=== PATIENT | male | born 1975 | race Caucasian/White ===

== ENCOUNTER 2016-09-13 10:57 | Day surgery (SDC) | payer OTHER ==
[2016-09-11 09:48] VITALS: BMI 40.1
[~2016-09-13 10:57] MED LIST: ALBUTEROL NEB (CONC) 2.5 MG/0.5 ML INHALATION ONE; LACTATED RINGERS 1,000 ML IV ONE; LACTATED RINGERS 1,000 ML IV SCH; LIDOCAINE 2% (PF) 20 MG/ML 10ML INHALATION ONE; Pre Op ABX Message 1 EACH MISC MISCELLANE ONE
[2016-09-13] MEDS ORDERED: LIDOCAINE 1% 20 ML VIAL (10MG/ML) FOR IV START SQ ONE (11:47)
[2016-09-13 11:51] VITALS: TEMP 98.3
[2016-09-13] MEDS ORDERED: MIDAZOLAM 2 MG/2 ML VIAL ONE (12:46)
[2016-09-13] MEDS ORDERED: PROPOFOL 10 MG/ML 20 ML VIAL IV ONE (12:46)
[2016-09-13] MEDS ORDERED: fentaNYL (PF) 50 MCG/ML 2 ML AMP ONE (12:46)
[2016-09-13] MEDS ORDERED: LIDOCAINE 1% INJ 10MG/ML (20 ML MDV) ONE (12:46)
[2016-09-13] MEDS ORDERED: KETAMINE 10 MG/ML 20 ML VIAL ONE (12:46)
[2016-09-13 13:41] VITALS: RESP 18
[2016-09-13 14:01] VITALS: BP 130/62; PULSE 81
--- NOTE | 2016-09-13 21:46 | PCN ---
PROCEDURE: Bronchoscopy. PREOPERATIVE DIAGNOSIS: Hemoptysis and a questionable left lung polypoid lesion. POSTOPERATIVE DIAGNOSIS: Endobronchial mass/lesion occluding the orifice of the left upper lobe bronchus. This procedure was done under conscious sedation with anesthetic agents being administered by Anesthesia at the bedside. After achieving adequate sedation, flexible bronchoscope was inserted in the right nostril, was advanced into the upper airway. There was a significant amount of adipose tissue circumferentially in the upper airway involving the pharyngeal and laryngeal wall typical of sleep apnea. There was also evidence of dynamic obstruction. Flexible bronchoscope was advanced and the upper airway structures were visualized. The visualized airways included the posterior oropharynx, larynx, epiglottis, arytenoids, valleculae and the vocal cords. All of these upper airway structures were within normal limits and the vocal cords were symmetrical in the midline with full mobility. A total of 2 mL of 1% lidocaine was applied to the vocal cords and then the bronchoscope was advanced to the upper trachea and examination of the tracheobronchial tree was done. Trachea was within normal. Right mainstem bronchus, right upper lobe bronchus, right middle lobe bronchus and right lower lobe bronchus were all within normal limits. Then the bronchoscope was moved to the left side and the left mainstem bronchus was within normal. At the distal left mainstem bronchus and exactly at the site of the secondary faith bifurcating between the left upper lobe and left lower lobe bronchus, there was an endobronchial growth/lesion/mass probably 1.5 x 2 cm in size and this lesion is located exactly at the orifice of the left upper lobe bronchus, causing near complete occlusion of the left upper lobe bronchus. I was able to pass the bronchoscope past this lesion and I was able to visualize the left upper lobe airways. However, the lesion itself is at the origin of the left upper lobe bronchus and is causing significant anatomic obstruction probably in the order of 80%. The surface of the lesion is very small smooth and shiny and vascular. I was able to insert a 19-gauge histology and cytology needle into this lesion and samples were examined by Pathology at the bedside. There were significant macrophages, yet there was no evidence of any malignant cells based on preliminary examination. I also performed endobronchial biopsies. The field got contaminated with blood caused by these biopsies. The bloody secretions were all suctioned out. The airway was further irrigated with saline and there was no active source of bleeding identified. At the end of the procedure, therapeutic airway suctioning was done and the bronchoscope was removed and the patient was transferred to recovery in stable condition. PLAN: This patient has an abnormal growth/lesion/mass in the left upper lobe bronchus, which is very smooth and shiny and vascular. Rule out primary lung cancer. Rule out carcinoid. Rule out endobronchial fungal infections. Rule out benign polypoid growth. My plan is to send this patient to [facility] to be seen by the interventional pulmonology program for rigid bronchoscopy and excision. Will continue to follow.
== END 2016-09-13 14:35 | disposition home or self-care (01) ==
LOC: ORWHC2ENDO 10:57
PROVIDERS: ATTEND Internal Medicine Critical Care Medicine
DX: G47.33 Obstructive sleep apnea (adult) (pediatric) (principal); Z99.89 Dependence on other enabling machines and devices; I10 Essential (primary) hypertension; E78.5 Hyperlipidemia, unspecified; Z79.82 Long term (current) use of aspirin; Z79.899 Other long term (current) drug therapy
CPT/HCPCS: 88305; 88173; 88342; 88341; 31629; J2250; J2001; J3010; J2704; 31625; 31633; 99153

== ENCOUNTER 2019-02-01 17:22 | Inpatient (IN) | payer BC, OTHER ==
[2019-02-01] MEDS ORDERED: KETOROLAC 30 MG/ML 1 ML VIAL IVP STA (18:17)
[2019-02-01] MEDS ORDERED: SODIUM CHLORIDE 0.9% 1,000 ML IV STA (18:17)
[2019-02-01] MEDS ORDERED: ONDANSETRON 4 MG/2 ML VIAL IVP STA (18:17)
--- NOTE | 2019-02-01 18:29 | ED ---
Abdominal Pain HPI - General Chief Complaint: Abdominal Pain Stated Complaint: Stomach pain Time Seen by Provider: 02/01/19 18:06 Source: patient, RN notes reviewed Mode of arrival: ambulatory Limitations: no limitations - History of Present Illness Initial Comments: This is a 43-year-old male presents emergency Department chief left-sided abdominal pain. Patient states the pain started today. Patient does admit that started vomiting with continuous nausea, mild diarrhea. Denies any melena hematochezia. No fevers or chills no dysuria no hematuria. Patient had a colonoscopy in the past which was negative for acute findings, no history kidney stones no prior abdominal surgeries that chest pain or shortness of breath. - Related Data Home Medications Medication Instructions Recorded Confirmed Aspirin [Adult Low Dose Aspirin EC] 81 mg PO DAILY 09/11/16 02/01/19 Fexofenadine HCl [Kia Allergy] 60 mg PO DAILY 09/11/16 02/01/19 Gemfibrozil [Lopid] 600 mg PO AC-BID 09/11/16 02/01/19 Lisinopril-Hctz 20-12.5 mg 1 tab PO DAILY 09/11/16 02/01/19 [Zestoretic 20-12.5] Esomeprazole Magnesium [NexIUM] 40 mg PO DAILY 02/01/19 02/01/19 Multivitamins, Thera [Multivitamin 1 tab PO DAILY 02/01/19 02/01/19 (formulary)] metFORMIN HCL [Glucophage] 1,000 mg PO BID 02/01/19 02/01/19 Allergies Allergy/AdvReac Type Severity Reaction Status Date / Time Milk Containing Products AdvReac sinus, Verified 02/01/19 19:01 [Dairy] itchy eyes Review of Systems ROS Statement: Those systems with pertinent positive or pertinent negative responses have been documented in the HPI. ROS Other: All systems not noted in ROS Statement are negative. Past Medical History Past Medical History: GERD/Reflux, Hyperlipidemia, Hypertension, Sleep Apnea/CPAP/BIPAP Additional Past Medical History / Comment(s): mass left lung, allergies History of Any Multi-Drug Resistant Organisms: None Reported Past Surgical History: Orthopedic Surgery Additional Past Surgical History / Comment(s): arthroscopy rt knee Past Anesthesia/Blood Transfusion Reactions: No Reported Reaction Smoking Status: Former smoker - Past Family History Mother Family Medical History: No Reported History General Exam Limitations: no limitations General appearance: alert, in no apparent distress Head exam: Present: atraumatic, normocephalic, normal inspection Eye exam: Present: normal appearance, PERRL, EOMI. Absent: scleral icterus, conjunctival injection, periorbital swelling Neck exam: Present: normal inspection. Absent: tenderness, meningismus, lymphadenopathy Respiratory exam: Present: normal lung sounds bilaterally. Absent: respiratory distress, wheezes, rales, rhonchi, stridor Cardiovascular Exam: Present: regular rate, normal rhythm, normal heart sounds. Absent: systolic murmur, diastolic murmur, rubs, gallop, clicks GI/Abdominal exam: Present: soft, tenderness (Mild diffuse with moderate left- sided tenderness), normal bowel sounds. Absent: distended, guarding, rebound, rigid Back exam: Absent: CVA tenderness (R), CVA tenderness (L) Skin exam: Present: warm, dry, intact, normal color. Absent: rash Course Vital Signs 02/01/19 18:02 Temperature 98.4 F Pulse Rate 105 H Respiratory 16 Rate Blood Pressure 147/89 O2 Sat by Pulse 98 Oximetry Medical Decision Making - Medical Decision Making 43-year-old male presented from for abdominal pain. Patient's found to have acute pancreatitis, hyperglycemia related to his diabetes. Patient will be admitted for IV fluid hydration, pain control and insulin. - Lab Data Result diagrams: 02/01/19 18:30 02/01/19 18:30 Lab Results 02/01/19 02/01/19 02/01/19 Range/Units 18:30 18:30 18:30 WBC 9.3 (3.8-10.6) k/uL RBC 4.09 L (4.30-5.90) m/uL Hgb 13.6 (13.0-17.5) gm/dL Hct 38.9 L (39.0-53.0) % MCV 95.0 (80.0-100.0) fL MCH 33.2 (25.0-35.0) pg MCHC 34.9 (31.0-37.0) g/dL RDW 12.9 (11.5-15.5) % Plt Count 191 (150-450) k/uL Neutrophils % 83 % Lymphocytes % 10 % Monocytes % 4 % Eosinophils % 2 % Basophils % 0 % Neutrophils # 7.8 H (1.3-7.7) k/uL Lymphocytes # 0.9 L (1.0-4.8) k/uL Monocytes # 0.4 (0-1.0) k/uL Eosinophils # 0.2 (0-0.7) k/uL Basophils # 0.0 (0-0.2) k/uL Sodium 134 L (137-145) mmol/L Potassium 4.3 (3.5-5.1) mmol/L Chloride 93 L (98-107) mmol/L Carbon Dioxide 26 (22-30) mmol/L Anion Gap 15 mmol/L BUN 24 H (9-20) mg/dL Creatinine 1.13 (0.66-1.25) mg/dL Est GFR (CKD-EPI)AfAm >90 (>60 ml/min/1.73 sqM) Est GFR (CKD-EPI)NonAf 80 (>60 ml/min/1.73 sqM) Glucose 417 H (74-99) mg/dL Plasma Lactic Acid Ralf 3.2 H* (0.7-2.0) mmol/L Calcium 10.4 H (8.4-10.2) mg/dL Total Bilirubin 0.7 (0.2-1.3) mg/dL AST 40 (17-59) U/L ALT 63 (21-72) U/L Alkaline Phosphatase 111 (38-126) U/L Total Protein 7.6 (6.3-8.2) g/dL Albumin 4.7 (3.5-5.0) g/dL Lipase 6404 H (23-300) U/L Urine Color Urine Appearance (Clear) Urine pH (5.0-8.0) Ur Specific [place] (1.001-1.035) Urine Protein (Negative) Urine Glucose (UA) (Negative) Urine Ketones (Negative) Urine Blood (Negative) Urine Nitrite (Negative) Urine Bilirubin (Negative) Urine Urobilinogen (<2.0) mg/dL Ur Leukocyte Esterase (Negative) 02/01/19 Range/Units 18:45 WBC (3.8-10.6) k/uL RBC (4.30-5.90) m/uL Hgb (13.0-17.5) gm/dL Hct (39.0-53.0) % MCV (80.0-100.0) fL MCH (25.0-35.0) pg MCHC (31.0-37.0) g/dL RDW (11.5-15.5) % Plt Count (150-450) k/uL Neutrophils % % Lymphocytes % % Monocytes % % Eosinophils % % Basophils % % Neutrophils # (1.3-7.7) k/uL Lymphocytes # (1.0-4.8) k/uL Monocytes # (0-1.0) k/uL Eosinophils # (0-0.7) k/uL Basophils # (0-0.2) k/uL Sodium (137-145) mmol/L Potassium (3.5-5.1) mmol/L Chloride (98-107) mmol/L Carbon Dioxide (22-30) mmol/L Anion Gap mmol/L BUN (9-20) mg/dL Creatinine (0.66-1.25) mg/dL Est GFR (CKD-EPI)AfAm (>60 ml/min/1.73 sqM) Est GFR (CKD-EPI)NonAf (>60 ml/min/1.73 sqM) Glucose (74-99) mg/dL Plasma Lactic Acid Ralf (0.7-2.0) mmol/L Calcium (8.4-10.2) mg/dL Total Bilirubin (0.2-1.3) mg/dL AST (17-59) U/L ALT (21-72) U/L Alkaline Phosphatase (38-126) U/L Total Protein (6.3-8.2) g/dL Albumin (3.5-5.0) g/dL Lipase (23-300) U/L Urine Color Light Yellow Urine Appearance Clear (Clear) Urine pH 5.0 (5.0-8.0) Ur Specific [place] 1.031 (1.001-1.035) Urine Protein Trace H (Negative) Urine Glucose (UA) 4+ H (Negative) Urine Ketones Negative (Negative) Urine Blood Negative (Negative) Urine Nitrite Negative (Negative) Urine Bilirubin Negative (Negative) Urine Urobilinogen <2.0 (<2.0) mg/dL Ur Leukocyte Esterase Negative (Negative) Disposition Clinical Impression: Abdominal pain, Pancreatitis, Hyperglycemia Disposition: ADMITTED IP TO THIS HOSP Condition: Fair Referrals: Danette Huynh MD [Primary Care Provider] - 1-2 days
[2019-02-01 19:04] LABS: ALT 63 U/L (21-72); AST 40 U/L (17-59); African American GFR (CKD) >90 (>60 ml/min/1.73 sqM); Albumin 4.7 g/dL (3.5-5.0); Alkaline Phosphatase 111 U/L (38-126); Anion Gap 15 mmol/L; Blood Urea Nitrogen 24 mg/dL (9-20); Calcium 10.4 mg/dL (8.4-10.2); Carbon Dioxide 26 mmol/L (22-30); Chloride 93 mmol/L (98-107); Glucose 417 mg/dL (74-99); Potassium 4.3 mmol/L (3.5-5.1); Sodium 134 mmol/L (137-145); Total Bilirubin 0.7 mg/dL (0.2-1.3); Total Protein 7.6 g/dL (6.3-8.2)
[2019-02-01 19:11] LABS: Appearance,Urine Clear (Clear); Bilirubin,Urine Negative (Negative); Blood,Urine Negative (Negative); Color,Urine Light Yellow; Glucose,Urine (UA) 4+ (Negative); Ketones,Urine Negative (Negative); Leukocyte Esterase,Urine Negative (Negative); Nitrite,Urine Negative (Negative); Protein,Urine Trace (Negative); Specific Gravity,Urine 1.031 (1.001-1.035); Urobilinogen,Urine <2.0 mg/dL (<2.0)
[2019-02-01 19:13] LABS: Basophils % (A) 0 %; Eosinophils # (A) 0.2 k/uL (0-0.7); Eosinophils % (A) 2 %; HCT 38.9 % (39.0-53.0); HGB 13.6 gm/dL (13.0-17.5); Lymphocytes # (A) 0.9 k/uL (1.0-4.8); Lymphocytes % (A) 10 %; MCH 33.2 pg (25.0-35.0); MCHC 34.9 g/dL (31.0-37.0); Mean Platelet Volume 8.1; Monocytes # (A) 0.4 k/uL (0-1.0); Monocytes % (A) 4 %; Neutrophils # (A) 7.8 k/uL (1.3-7.7); Neutrophils % (A) 83 %; Platelet Count 191 k/uL (150-450); RBC 4.09 m/uL (4.30-5.90); RDW 12.9 % (11.5-15.5); WBC 9.3 k/uL (3.8-10.6)
[2019-02-01 19:23] LABS: Lipase 6404 U/L (23-300)
[2019-02-01] MEDS ORDERED: SODIUM CHLORIDE 0.9% 1,000 ML IV ONE (19:33)
[2019-02-01] MEDS ORDERED: HYDROmorphone 0.5 MG/0.5 ML SYRINGE IVP STA (19:53)
--- NOTE | 2019-02-01 20:20 | CT ---
EXAMINATION TYPE: CT abdomen pelvis w con DATE OF EXAM: 02/01/2019 COMPARISON: None HISTORY: Left sided pain on and off x [address] DLP: 2948.4 mGycm Automated exposure control for dose reduction was used. TECHNIQUE: Helical acquisition of images was performed from the lung bases through the pelvis. CONTRAST: Performed without Oral Contrast and with IV Contrast, patient injected with 100 mL of Isovu e 300. FINDINGS: LUNG BASES: No acute findings. LIVER/GB: The liver is diffusely low in attenuation, likely steatosis. There is hepatomegaly. The gal lbladder is contracted. No CT evidence of cholelithiasis. There is no intrahepatic or extrahepatic bi liary tree dilation. PANCREAS: The pancreatic tail is markedly abnormal, and this abnormality extends to the midline. Ther e is complete loss of the normal acinar parenchymal pattern with edematous swelling and peripancreati c edematous reticulation of the anterior pararenal space, extending both anteriorly and posteriorly t o the pancreatic tail, as well as superiorly and inferiorly. The inflammatory edematous change is twi ce the volume of the normal pancreatic tail. The CT attenuation of the pancreatic parenchyma is decreased in the left lateral tail of the pancreas , suggesting the possibility of pancreatic necrosis. Short interval follow-up MR or CT with arterial phase contrast can be used to assess for this possibility. The pancreatic duct is normal. SPLEEN: No significant abnormality is seen. ADRENALS: No significant abnormality is seen. KIDNEYS: No significant abnormality is seen. FREE AIR: No free air is visualized. No ascites. RETROPERITONEAL ADENOPATHY: None visualized REPRODUCTIVE ORGANS: No significant abnormality is seen URINARY BLADDER: No significant abnormality is seen. PELVIC ADENOPATHY: None visualized. OSSEOUS STRUCTURES: No significant abnormality is seen. BOWEL: No significant abnormality is seen. OTHER: No acute vascular findings. Specifically, the splenic vein is widely patent. IMPRESSION: MODERATE-MARKED PANCREATITIS DESCRIBED. SHORT INTERVAL FOLLOW-UP MR OR CT RECOMMENDED.
[2019-02-01] MEDS ORDERED: ONDANSETRON 4 MG/2 ML VIAL IVP PRN (20:28)
[2019-02-01] MEDS ORDERED: KETOROLAC 30 MG/ML 1 ML VIAL IVP PRN (20:28)
[2019-02-01] MEDS ORDERED: NALOXONE 0.4 MG/ML 1 ML VIAL IV PRN (20:28)
[2019-02-01] MEDS ORDERED: INSULIN ASPART (NovoLOG) 100 UNIT/ML VIAL SQ SCH (21:00)
[2019-02-01 21:03] LABS: Glucose,Whole Blood 385 mg/dL (75-99)
[2019-02-01] MEDS: SODIUM CHLORIDE 0.9% 1,000 ML IV SCH (22:01)
[2019-02-01] MEDS: HYDROmorphone 0.5 MG/0.5 ML SYRINGE IVP PRN (23:33)
[2019-02-02 00:39] LABS: Glucose,Whole Blood 277 mg/dL (75-99)
[2019-02-02] MEDS ORDERED: TEMAZEPAM 15 MG CAP PO PRN (01:03)
[2019-02-02] MEDS: PANTOPRAZOLE 40 MG/10 ML VIAL IVP SCH ×3 (03:34→20:35)
[2019-02-02] MEDS: MEROPENEM 2 GM in SODIUM CHLORIDE 0.9% 100 ML IVPB SCH ×3 (03:34→18:23)
[2019-02-02] MEDS: SODIUM CHLORIDE 0.9% 1,000 ML IV SCH ×2 (03:35→15:03)
[2019-02-02] MEDS: HYDROmorphone 0.5 MG/0.5 ML SYRINGE IVP PRN ×2 (03:39→08:06)
[2019-02-02 06:39] LABS: Glucose,Whole Blood 262 mg/dL (75-99)
[2019-02-02] MEDS: INSULIN ASPART (NovoLOG) 100 UNIT/ML VIAL SQ SCH ×4 (08:08→21:26)
[2019-02-02] MEDS: HEPARIN SODIUM,PORCINE 5,000 UNIT/ML 1 ML VIAL SQ SCH ×2 (08:11→20:37)
--- NOTE | 2019-02-02 08:16 | HP ---
HISTORY AND PHYSICAL DOS: 02/01/2019 CHIEF COMPLAINT: Abdominal pain. HISTORY OF PRESENT ILLNESS: This 43-year-old gentleman with a past medical history of multiple medical problems including diabetes, GERD, hypertension, hyperlipidemia, sleep apnea, history of left lung mass removed in [facility] in 2017, history of anxiety, depression, being followed by Dr. Huynh in the outpatient setting also had history of alcohol intake also like 3 to 4 days per week according to him. The patient is taking 3 to 4 drinks. The patient is complaining of severe abdominal pain for the last several days. It was aggravated today and the pain was mostly in the left upper quadrant with some associated nausea. The patient was followed by Dr. Huynh in the outpatient setting. The patient also had diabetes mellitus rather not compliant recently according to him. The patient also had some vomiting and continuous nausea and the patient came to [facility] and lipase was markedly elevated to more than 6000 indicating acute pancreatitis. CAT scan confirmed moderate marked pancreatitis also. The patient admitted for further evaluation and treatment at this time. Gastroenterology and surgical evaluation has been sought. There is no history of fever, rigors. No history of headache, loss of consciousness or seizures at this time. PAST MEDICAL HISTORY: History of diabetes mellitus, GERD, hypertension, hyperlipidemia, sleep apnea, history of left lung mass removal, anxiety, depression. MEDICATIONS: The home medications are: 1. Metformin 1000 mg p.o. b.i.d. 2. Multivitamins one p.o. daily. 3. Lisinopril, Zestoretic one tablet p.o. daily. 4. Lopid 600 mg p.o. b.i.d. 5. Kia 60 mg p.o. daily. 6. Nexium 40 mg p.o. daily. 7. Ecotrin 81 mg daily. ALLERGIES: MILK CONTAINING PRODUCTS. FAMILY HISTORY: History of hypertension and hyperlipidemia. SOCIAL HISTORY: History of alcohol as mentioned earlier. Previous history of smoking. REVIEW OF SYSTEMS: ENT: No diminished hearing or diminished vision. CARDIOVASCULAR SYSTEM: No angina. RESPIRATORY SYSTEM: As mentioned earlier. GI: As mentioned earlier. : No dysuria. NERVOUS SYSTEM: No numbness or weakness. ALLERGY/IMMUNOLOGY: No asthma or hayfever. MUSCULOSKELETAL: As mentioned early. HEMATOLOGY/ONCOLOGY: No history of anemia. ENDOCRINE: As mentioned earlier, diabetes mellitus. No hypothyroidism. CONSTITUTIONAL: As mentioned earlier. DERMATOLOGY: Negative. RHEUMATOLOGY: Negative. PSYCHIATRY: As mentioned earlier. PHYSICAL EXAMINATION: The patient is alert and oriented x3. Pulse 102, blood pressure 121/83, respirations 17, temperature 99.2, pulse ox 96% on room air. HEENT: Conjunctivae normal. Oral mucosa moist. NECK: No jugular venous distention. No carotid bruit. No lymph node enlargement. CARDIOVASCULAR: S1, S2 muffled. No S3, no S4. RESPIRATORY: Breath sounds diminished at the bases. No rhonchi, no crackles. ABDOMEN: Soft, obese. Mild diffuse discomfort. Mild diffuse distention. No guarding. No rigidity. No mass palpable. Bowel sounds diminished. No ascites. LEGS: No edema, no swelling. NERVOUS SYSTEM: Higher functions as mentioned. Moves all 4 limbs. No focal motor deficits. LYMPHATICS: No lymphadenopathy of the neck, axillae or groin. SKIN: No ulcer, rash or bleeding. JOINTS: No active deforming arthropathy. LABS: WBC 9.3, hemoglobin 13.6. Sodium 134, potassium 4.3 and glucose 417, 385. Calcium is 10.4. Lipase 6404. UA 4+ glucose, no ketones. ASSESSMENT: 1. Acute severe pancreatitis with severe abdominal pain. 2. History of alcohol intake. 3. Diabetes mellitus type 2, uncontrolled with hyperglycemia with no evidence of ketosis. 4. Hyponatremia. 5. Morbid obesity with body mass index of 44.3. 6. History of gastroesophageal reflux disease. 7. Hypertension. 8. Hyperlipidemia. 9. Sleep apnea. 10.History of left lung mass. 11.History of degenerative joint disease. 12.History of anxiety, depression. 13.Remote history of nicotine dependence. 14.FULL CODE. RECOMMENDATIONS AND DISCUSSION: This 43-year-old gentleman who presented with multiple complex medical issues, will monitor the patient closely. Continue the current medications, continue symptomatic treatment. Otherwise, we will keep the patient n.p.o. except medications. Obtain gastroenterology and surgical evaluation. Recommend empiric antibiotics because of the significant pancreatitis. Otherwise, obtain cultures. Proton pump inhibitors. DVT prophylaxis. Guarded prognosis because of multiple complex medical issues. Further recommendations to follow. A copy of the dictation forwarded to Dr. Huynh, who is the primary physician. Will also continue with pain medication as well. MMODL / IJN: [id number] / LESLY
--- NOTE | 2019-02-02 08:36 | US ---
EXAMINATION TYPE: US gallbladder DATE OF EXAM: 02/02/2019 COMPARISON: CT 2018, US 2011 CLINICAL HISTORY: pancreatitis- gall stones?. Abdomen pain and N/V x 1 day, obese patient, exam done portable. EXAM MEASUREMENTS: Liver Length: 24.4 cm Gallbladder Wall: 0.2 cm CBD: 0.4 cm Right Kidney: 13.4 x 6.5 x 6.5 cm Difficult and limited study due to patient body habitus Pancreas: heterogeneous, tail obscured by overlying midline bowel gas Liver: enlarged, attenuating, heterogeneous, decreased visualization of vessels suggestive of fatty infiltrate. This limits evaluation for hepatic masses. Gallbladder: wnl Evidence for sonographic Salinas's sign: yes CBD: visualized portions wnl, limited by overlying bowel gas Right Kidney: large in size IMPRESSION: 1. Sonographic findings most commonly related to hepatic steatosis, correlate with liver function emily ts. No sonographic evidence of cholelithiasis or acute cholecystitis. 2. Pancreatic parenchyma slightly heterogenous that may relate to technique and suboptimal visualizat ion although can be seen in acute pancreatitis. Correlate with serum amylase and lipase. No discrete peripancreatic fluid collection. 3. No sonographic evidence of cholelithiasis nor acute cholecystitis however there is a positive sono graphic Salinas sign and therefore HIDA scan could evaluate for biliary dyskinesia or chronic cholecys titis.
[2019-02-02 09:02] LABS: Basophils % (A) 0 %; Eosinophils # (A) 0.1 k/uL (0-0.7); Eosinophils % (A) 2 %; HCT 37.1 % (39.0-53.0); HGB 12.9 gm/dL (13.0-17.5); Lymphocytes # (A) 0.9 k/uL (1.0-4.8); Lymphocytes % (A) 11 %; MCH 33.2 pg (25.0-35.0); MCHC 34.8 g/dL (31.0-37.0); MCV 95.5 fL (80.0-100.0); Mean Platelet Volume 7.9; Monocytes # (A) 0.3 k/uL (0-1.0); Monocytes % (A) 4 %; Neutrophils # (A) 6.3 k/uL (1.3-7.7); Neutrophils % (A) 81 %; Platelet Count 161 k/uL (150-450); RBC 3.89 m/uL (4.30-5.90); RDW 12.9 % (11.5-15.5); WBC 7.7 k/uL (3.8-10.6)
[2019-02-02 09:09] LABS: INR 0.9 (<1.2); Prothrombin Time 9.9 sec (9.0-12.0)
[2019-02-02 09:28] LABS: ALT 45 U/L (21-72); AST 25 U/L (17-59); African American GFR (CKD) >90 (>60 ml/min/1.73 sqM); Albumin 4.2 g/dL (3.5-5.0); Alkaline Phosphatase 62 U/L (38-126); Anion Gap 11 mmol/L; Blood Urea Nitrogen 24 mg/dL (9-20); Calcium 9.5 mg/dL (8.4-10.2); Carbon Dioxide 27 mmol/L (22-30); Chloride 98 mmol/L (98-107); Glucose 246 mg/dL (74-99); Potassium 3.9 mmol/L (3.5-5.1); Sodium 136 mmol/L (137-145); Total Bilirubin 1.1 mg/dL (0.2-1.3); Total Protein 6.9 g/dL (6.3-8.2)
[2019-02-02 10:32] LABS: Lipase 6384 U/L (23-300)
[2019-02-02 10:35] LABS: Amylase 362 U/L (30-110)
[2019-02-02] MEDS: HYDROmorphone 1 MG/ML 1 ML SYRINGE IVP PRN ×3 (11:11→20:36)
[2019-02-02 11:58] LABS: Glucose,Whole Blood 261 mg/dL (75-99)
[2019-02-02] MEDS ORDERED: SODIUM CHLORIDE 0.9% 1,000 ML IV ONE (13:42)
--- NOTE | 2019-02-02 13:53 | P.CONS ---
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 Patient had a similar episode of abdominal pain 2 weeks ago but subsided on its own. Patient drinks 4-10 back or drinks 4 times a week for several plus years. White count 9.3. Hemoglobin 13.6. Hematocrit 38.9. Platelet 191. INR 0.9. BUN 24. Creatinine 1.1. Calcium 10.4. Glucose 417. Lactic acid 3.2 with hydration 2.0. LFTs within normal limits. Lipase 6404. Presently lipase is 6384. Amylase 362. LFTs normal. BUN unchanged 24. Creatinine 0.9. T-max 100.0. Receiving IV fluids. No history of pancreatitis. CT abdomen pancreatic tail markedly abnormal ext ends to the midline complete loss of normal as can R parenchymal pattern with edematous swelling in. Pancreatic edematous reticulation of the anterior pararenal space. The inflammatory edematous changes twice the volume of the normal pancreatic tail. No biliary tree abnormalities. No gallstones. Ultrasound gallbladder hepatic steatosis no evidence of cholelithiasis. No pseudocyst. Review of Systems Constitutional: Denies fever, chills, sweats, weight gain, or loss. HEENT: Negative for migraines, blurred vision or loss, earaches, drainage, tinnitus, oral mucosal lesions, dysphagia, or odynophagia. Cardiac: Negative for chest pain, arrhythmias, or palpitation. Respiratory: Negative for shortness of breath, hemoptysis, cough, or sputum production. Gastrointestinal: See HPI for pertinent findings. Genitourinary: Negative for hematuria, urgency, frequency, polyuria, dysuria, or penile discharge. Musculoskeletal: Negative for muscle aches, swelling, arthritis, and arthralgias. Neurologic: Negative for stroke or TIA. Endocrine: Negative for thyroid problems. Skin: Negative for rash or itching. Psychiatric: Negative history for depression and anxiety Past Medical History Past Medical History: Diabetes Mellitus, GERD/Reflux, Hyperlipidemia, Hypertension, Sleep Apnea/CPAP/BIPAP Additional Past Medical History / Comment(s): Left lung mass removed at [facility] Sep 2016. Seasonal allergies. History of Any Multi-Drug Resistant Organisms: None Reported Past Surgical History: Orthopedic Surgery Additional Past Surgical History / Comment(s): Rt Knee meniscus repair 2003 Past Anesthesia/Blood Transfusion Reactions: No Reported Reaction Past Psychological History: Anxiety, Depression Additional Psychological History / Comment(s): Patient takes prescribed Xanax 1mg PRN if required - states has not used in 6 months. Smoking Status: Former smoker Past Alcohol Use History: Occasional Additional Past Alcohol Use History / Comment(s): smoked 20 years 1ppd quit 06/26 Past Drug Use History: None Reported - Past Family History Mother Family Medical History: Hyperlipidemia, Hypertension Brother(s) Family Medical History: No Reported History Sister(s) Family Medical History: No Reported History Father History Unknown: Yes Medications and Allergies Home Medications Medication Instructions Recorded Confirmed Type Aspirin [Adult Low Dose Aspirin EC] 81 mg PO DAILY 09/11/16 02/01/19 History Fexofenadine HCl [Kia Allergy] 60 mg PO DAILY 09/11/16 02/01/19 History Gemfibrozil [Lopid] 600 mg PO AC-BID 09/11/16 02/01/19 History Lisinopril-Hctz 20-12.5 mg 1 tab PO DAILY 09/11/16 02/01/19 History [Zestoretic 20-12.5] Esomeprazole Magnesium [NexIUM] 40 mg PO DAILY 02/01/19 02/01/19 History Multivitamins, Thera [Multivitamin 1 tab PO DAILY 02/01/19 02/01/19 History (formulary)] metFORMIN HCL [Glucophage] 1,000 mg PO BID 02/01/19 02/01/19 History Allergies Allergy/AdvReac Type Severity Reaction Status Date / Time Milk Containing Products AdvReac sinus, Verified 02/01/19 19:01 [Dairy] itchy eyes Physical Exam Vitals: Vital Signs Temp Pulse Pulse Resp BP BP Pulse Ox 02/02/19 07:00 98.4 F 104 H 16 114/70 93 L 02/02/19 01:26 100.0 F H 92 18 116/75 97 02/01/19 21:28 99.2 F 102 H 17 121/83 96 02/01/19 21:19 104 H 18 150/77 96 02/01/19 18:02 98.4 F 105 H 16 147/89 98 Intake and Output 02/01/19 02/02/19 02/02/19 22:59 06:59 14:59 Intake Total 1100 Balance 1100 Intake: Intake, IV Titration 1100 Amount Meropenem 2 gm In Sodium 100 Chloride 0.9% 100 ml @ 200 mls/hr IVPB Q8H AMAURY Rx#:[id number] Sodium Chloride 0.9% 1, 1000 000 ml @ 100 mls/hr IV . Q10H AMAURY Rx#:[id number] Other: Voiding Method Toilet # Voids 1 Weight 154.221 kg 160.7 kg General appearance: The patient is alert, oriented, in no acute distress. HET: Head is normocephalic and atraumatic. Pupils are equal and reactive. Oropharynx is clear without lesions. Neck: Supple without lymphadenopathy. Trachea midline. Heart: S1 S2. Regular rate and rhythm. Lungs: No crackles or wheezes are heard. Abdomen: Soft, tenderness across the upper abdomen with rebound and guarding. No palpable organomegaly or masses. Extremities: Normal skin color and turgor. No cyanosis, rash, ulceration, clubbing, or edema. Radial and pedal pulses are 2/4 bilaterally. Neurological: No focal deficits. Strength and sensation are grossly intact. Results CBC & Chem 7: 02/03/19 07:39 02/02/19 15:44 Labs: Abnormal Lab Results - Last 24 Hours (Table) 02/01/19 02/01/19 02/01/19 Range/Units 18:30 18:30 18:30 RBC 4.09 L (4.30-5.90) m/uL Hgb (13.0-17.5) gm/dL Hct 38.9 L (39.0-53.0) % Neutrophils # 7.8 H (1.3-7.7) k/uL Lymphocytes # 0.9 L (1.0-4.8) k/uL Sodium 134 L (137-145) mmol/L Chloride 93 L (98-107) mmol/L BUN 24 H (9-20) mg/dL Glucose 417 H (74-99) mg/dL POC Glucose (mg/dL) (75-99) mg/dL Plasma Lactic Acid Ralf 3.2 H* (0.7-2.0) mmol/L Calcium 10.4 H (8.4-10.2) mg/dL Amylase (30-110) U/L Lipase 6404 H (23-300) U/L Urine Protein (Negative) Urine Glucose (UA) (Negative) 02/01/19 02/01/19 02/02/19 Range/Units 18:45 21:02 00:37 RBC (4.30-5.90) m/uL Hgb (13.0-17.5) gm/dL Hct (39.0-53.0) % Neutrophils # (1.3-7.7) k/uL Lymphocytes # (1.0-4.8) k/uL Sodium (137-145) mmol/L Chloride (98-107) mmol/L BUN (9-20) mg/dL Glucose (74-99) mg/dL POC Glucose (mg/dL) 385 H 277 H (75-99) mg/dL Plasma Lactic Acid Ralf (0.7-2.0) mmol/L Calcium (8.4-10.2) mg/dL Amylase (30-110) U/L Lipase (23-300) U/L Urine Protein Trace H (Negative) Urine Glucose (UA) 4+ H (Negative) 02/02/19 02/02/19 02/02/19 Range/Units 06:38 08:09 08:09 RBC 3.89 L (4.30-5.90) m/uL Hgb 12.9 L (13.0-17.5) gm/dL Hct 37.1 L (39.0-53.0) % Neutrophils # (1.3-7.7) k/uL Lymphocytes # 0.9 L (1.0-4.8) k/uL Sodium 136 L (137-145) mmol/L Chloride (98-107) mmol/L BUN 24 H (9-20) mg/dL Glucose 246 H (74-99) mg/dL POC Glucose (mg/dL) 262 H (75-99) mg/dL Plasma Lactic Acid Ralf (0.7-2.0) mmol/L Calcium (8.4-10.2) mg/dL Amylase 362 H* (30-110) U/L Lipase 6384 H (23-300) U/L Urine Protein (Negative) Urine Glucose (UA) (Negative) 02/02/19 Range/Units 11:40 RBC (4.30-5.90) m/uL Hgb (13.0-17.5) gm/dL Hct (39.0-53.0) % Neutrophils # (1.3-7.7) k/uL Lymphocytes # (1.0-4.8) k/uL Sodium (137-145) mmol/L Chloride (98-107) mmol/L BUN (9-20) mg/dL Glucose (74-99) mg/dL POC Glucose (mg/dL) 261 H (75-99) mg/dL Plasma Lactic Acid Ralf (0.7-2.0) mmol/L Calcium (8.4-10.2) mg/dL Amylase (30-110) U/L Lipase (23-300) U/L Urine Protein (Negative) Urine Glucose (UA) (Negative) CT scan - abdomen: report reviewed (Dr. Pierce) US - abdomen: report reviewed (Dr. Pierce) Assessment and Plan (1) Pancreatitis, acute Narrative/Plan: 43-year-old male admitted with severe acute pancreatitis Current Visit: Yes Status: Acute Code(s): K85.90 - ACUTE PANCREATITIS WITHOUT NECROSIS OR INFECTION, UNSP SNOMED Code(s): 907690660 (2) ETOH abuse Current Visit: Yes Status: Acute Code(s): F10.10 - ALCOHOL ABUSE, UNCOMPLICATED SNOMED Code(s): 92711084 (3) Morbid obesity with BMI of 40.0-44.9, adult Current Visit: Yes Status: Acute Code(s): E66.01 - MORBID (SEVERE) OBESITY DUE TO EXCESS CALORIES; Z68.41 - BODY MASS INDEX (BMI) 40.0-44.9, ADULT SNOMED Code(s): 127174803 (4) Hypertriglyceridemia Current Visit: Yes Status: Acute Code(s): E78.1 - PURE HYPERGLYCERIDEMIA SNOMED Code(s): 065517897 (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 Normal saline bolus 1000 mL 1. Increase maintenance IV fluids 150 mL an hour. CBC BMP lipase now and in a.m. Nothing by mouth except medications. Will check triglycerides CHUCK IgG subclass 1-4. Alcohol abstinence advised. Toradol 15 mg every 6 hours 6 doses. Thank you for this kind referral and the opportunity to participate in the care of your patient. This consultation was discussed with Dr. Pierce. The impression and plan of care have been directed as dictated.
[2019-02-02] MEDS: KETOROLAC 30 MG/ML 1 ML VIAL IVP SCH ×2 (14:02→18:22)
--- NOTE | 2019-02-02 14:39 | P.GSCN ---
<Callie Mackay - Last Filed: 02/02/19 14:38> History of Present Illness Consult date: 02/02/19 Reason for Consult: Abdominal pain Requesting physician: Carly Sullivan History of present illness: CHIEF COMPLAINT: abdominal pain HISTORY OF PRESENT ILLNESS: 43-year-old male who presented to the emergency room with chief complaint of abdominal pain. Patient states he was feeling well yesterday until about 11:30 when he had some pizza and shortly after began having severe abdominal pain. Patient reports the pain is mostly in the epigastric region and radiates down to umbilicus and left lower quadrant. He reports nausea and two episodes of bilious emesis yesterday. He reports about two weeks ago he had similiar pain but it resolved on its own and he did not require medical treatment. He states he was drinking alcohol the weekend before he began having abdominal pain. Patient reports drinking the majority of the days of the week but has been trying to cut back. He reports drinking alcohol Friday, , Friday, Friday, and Friday last week. He reports Friday he had approximately 10 alcoholic drinks. Patient was febrile overnight with a Tmax of 100.0F. Temperature this morning 98.4. He is mildly tachycardic. Blood pressure stable. PAST MEDICAL HISTORY: See list. PAST SURGICAL HISTORY: See list. SOCIAL HISTORY: No illicit drug use. Reports alcohol use multiple times a week. REVIEW OF SYSTEMS: CONSTITUTIONAL: Denies fever or chills. HEENT: Denies blurred vision, vision changes, or eye pain. Denies hemoptysis CARDIOVASCULAR: Denies chest pain or pressure. RESPIRATORY: No shortness of breath. GASTROINTESTINAL: Refer to HPI for pertinent findings HEMATOLOGIC: Denies bleeding disorders. GENITOURINARY: Denies any blood in urine. SKIN: Denies pruitis. Denies rash. PHYSICAL EXAM: VITAL SIGNS: Reviewed. GENERAL: Well-developed in no acute distress. HEENT: No sclera icterus. Extraocular movements grossly intact. Moist buccal mucosa. Head is atraumatic, normocephalic. ABDOMEN: Soft. Nondistended. Tenderness upon palpation of epigastric region and upper quadrants. Positive bowel sounds. NEUROLOGIC: Alert and oriented. Cranial nerves II through XII grossly intact. LABORATORY DATA: Laboratory data upon admission was white count 9.3. Hemoglobin 13.6. Potassium 4.3. Lactic acid 3.2. Bilirubin 0.7. AST 40. ALT 63. Lipase 6404. Repeat blood work is pretty reveals amylase 362. Lipase 6384. IMAGIN. CT abdomen and pelvis: Pancreatic tail is markedly abnormal and this abnormality extends to the midline. There is complete loss of normal acinar parenchymal pattern with edematous swelling and peripancreatic edematous reticulation of the anterior pararenal space, extending both anteriorly and posteriorly to the pancreatic tail as well as superiorly and inferiorly. The inflammatory edematous changes twice the volume of abnormal pancreatic tail. The liver is diffusely low attenuation, likely steatosis. Hepatomegaly. Gallbladder is contracted. No CT evidence of cholelithiasis. No intrahepatic or extrahepatic biliary tree dilation. Impression reveals moderate to marked pancreatitis. 2. Ultrasound gallbladder: Sonographic findings most commonly related to hepatic steatosis. No sonographic evidence of cholelithiasis or acute cholecystitis. ASSESSMENT: 1. Abdominal pain, nausea, vomiting 1 day 2. Acute pancreatitis 3. Alcohol abuse 4. Hepatomegaly PLAN: 1. NPO except for ice chips and a few sips of water sparingly 2. Continue IV fluids 3. Alcohol abstinence recommended 4. Monitor labs 5. Pain control 6. GI on consult. Await evaluation and recommendations 7. No surgical intervention recommended Nurse practitioner note has been reviewed by physician. Signing provider agrees with the documented findings, assessment, and plan of care. Past Medical History Past Medical History: Diabetes Mellitus, GERD/Reflux, Hyperlipidemia, Hypertension, Sleep Apnea/CPAP/BIPAP Additional Past Medical History / Comment(s): Left lung mass removed at [facility] Sep 2016. Seasonal allergies. History of Any Multi-Drug Resistant Organisms: None Reported Past Surgical History: Orthopedic Surgery Additional Past Surgical History / Comment(s): Rt Knee meniscus repair 2003 Past Anesthesia/Blood Transfusion Reactions: No Reported Reaction Past Psychological History: Anxiety, Depression Additional Psychological History / Comment(s): Patient takes prescribed Xanax 1mg PRN if required - states has not used in 6 months. Smoking Status: Former smoker Past Alcohol Use History: Occasional Additional Past Alcohol Use History / Comment(s): smoked 20 years 1ppd quit 06/26 Past Drug Use History: None Reported - Past Family History Mother Family Medical History: Hyperlipidemia, Hypertension Brother(s) Family Medical History: No Reported History Sister(s) Family Medical History: No Reported History Father History Unknown: Yes Medications and Allergies Home Medications Medication Instructions Recorded Confirmed Type Aspirin [Adult Low Dose Aspirin EC] 81 mg PO DAILY 09/11/16 02/01/19 History Fexofenadine HCl [Kia Allergy] 60 mg PO DAILY 09/11/16 02/01/19 History Gemfibrozil [Lopid] 600 mg PO AC-BID 09/11/16 02/01/19 History Lisinopril-Hctz 20-12.5 mg 1 tab PO DAILY 09/11/16 02/01/19 History [Zestoretic 20-12.5] Esomeprazole Magnesium [NexIUM] 40 mg PO DAILY 02/01/19 02/01/19 History Multivitamins, Thera [Multivitamin 1 tab PO DAILY 02/01/19 02/01/19 History (formulary)] metFORMIN HCL [Glucophage] 1,000 mg PO BID 02/01/19 02/01/19 History Allergies Allergy/AdvReac Type Severity Reaction Status Date / Time Milk Containing Products AdvReac sinus, Verified 02/01/19 19:01 [Dairy] itchy eyes Surgical - Exam Vital Signs Temp Pulse Resp BP Pulse Ox 98.4 F 105 H 16 147/89 98 02/01/19 18:02 02/01/19 18:02 02/01/19 18:02 02/01/19 18:02 02/01/19 18:02 Results - Labs 02/02/19 08:09 02/02/19 08:09 Abnormal Lab Results - Last 24 Hours (Table) 02/01/19 02/01/19 02/01/19 Range/Units 18:30 18:30 18:30 RBC 4.09 L (4.30-5.90) m/uL Hgb (13.0-17.5) gm/dL Hct 38.9 L (39.0-53.0) % Neutrophils # 7.8 H (1.3-7.7) k/uL Lymphocytes # 0.9 L (1.0-4.8) k/uL Sodium 134 L (137-145) mmol/L Chloride 93 L (98-107) mmol/L BUN 24 H (9-20) mg/dL Glucose 417 H (74-99) mg/dL POC Glucose (mg/dL) (75-99) mg/dL Plasma Lactic Acid Ralf 3.2 H* (0.7-2.0) mmol/L Calcium 10.4 H (8.4-10.2) mg/dL Amylase (30-110) U/L Lipase 6404 H (23-300) U/L Urine Protein (Negative) Urine Glucose (UA) (Negative) 02/01/19 02/01/19 02/02/19 Range/Units 18:45 21:02 00:37 RBC (4.30-5.90) m/uL Hgb (13.0-17.5) gm/dL Hct (39.0-53.0) % Neutrophils # (1.3-7.7) k/uL Lymphocytes # (1.0-4.8) k/uL Sodium (137-145) mmol/L Chloride (98-107) mmol/L BUN (9-20) mg/dL Glucose (74-99) mg/dL POC Glucose (mg/dL) 385 H 277 H (75-99) mg/dL Plasma Lactic Acid Ralf (0.7-2.0) mmol/L Calcium (8.4-10.2) mg/dL Amylase (30-110) U/L Lipase (23-300) U/L Urine Protein Trace H (Negative) Urine Glucose (UA) 4+ H (Negative) 02/02/19 02/02/19 02/02/19 Range/Units 06:38 08:09 08:09 RBC 3.89 L (4.30-5.90) m/uL Hgb 12.9 L (13.0-17.5) gm/dL Hct 37.1 L (39.0-53.0) % Neutrophils # (1.3-7.7) k/uL Lymphocytes # 0.9 L (1.0-4.8) k/uL Sodium 136 L (137-145) mmol/L Chloride (98-107) mmol/L BUN 24 H (9-20) mg/dL Glucose 246 H (74-99) mg/dL POC Glucose (mg/dL) 262 H (75-99) mg/dL Plasma Lactic Acid Ralf (0.7-2.0) mmol/L Calcium (8.4-10.2) mg/dL Amylase 362 H* (30-110) U/L Lipase 6384 H (23-300) U/L Urine Protein (Negative) Urine Glucose (UA) (Negative) 02/02/19 Range/Units 11:40 RBC (4.30-5.90) m/uL Hgb (13.0-17.5) gm/dL Hct (39.0-53.0) % Neutrophils # (1.3-7.7) k/uL Lymphocytes # (1.0-4.8) k/uL Sodium (137-145) mmol/L Chloride (98-107) mmol/L BUN (9-20) mg/dL Glucose (74-99) mg/dL POC Glucose (mg/dL) 261 H (75-99) mg/dL Plasma Lactic Acid Ralf (0.7-2.0) mmol/L Calcium (8.4-10.2) mg/dL Amylase (30-110) U/L Lipase (23-300) U/L Urine Protein (Negative) Urine Glucose (UA) (Negative) Diabetes panel 02/01/19 02/02/19 Range/Units 18:30 08:09 Sodium 134 L 136 L (137-145) mmol/L Potassium 4.3 3.9 (3.5-5.1) mmol/L Chloride 93 L 98 (98-107) mmol/L Carbon Dioxide 26 27 (22-30) mmol/L BUN 24 H 24 H (9-20) mg/dL Creatinine 1.13 0.99 (0.66-1.25) mg/dL Glucose 417 H 246 H (74-99) mg/dL Calcium 10.4 H 9.5 (8.4-10.2) mg/dL AST 40 25 (17-59) U/L ALT 63 45 (21-72) U/L Alkaline Phosphatase 111 62 (38-126) U/L Total Protein 7.6 6.9 (6.3-8.2) g/dL Albumin 4.7 4.2 (3.5-5.0) g/dL Calcium panel 02/01/19 02/02/19 Range/Units 18:30 08:09 Calcium 10.4 H 9.5 (8.4-10.2) mg/dL Albumin 4.7 4.2 (3.5-5.0) g/dL Pituitary panel 02/01/19 02/02/19 Range/Units 18:30 08:09 Sodium 134 L 136 L (137-145) mmol/L Potassium 4.3 3.9 (3.5-5.1) mmol/L Chloride 93 L 98 (98-107) mmol/L Carbon Dioxide 26 27 (22-30) mmol/L BUN 24 H 24 H (9-20) mg/dL Creatinine 1.13 0.99 (0.66-1.25) mg/dL Glucose 417 H 246 H (74-99) mg/dL Calcium 10.4 H 9.5 (8.4-10.2) mg/dL Adrenal panel 02/01/19 02/02/19 Range/Units 18:30 08:09 Sodium 134 L 136 L (137-145) mmol/L Potassium 4.3 3.9 (3.5-5.1) mmol/L Chloride 93 L 98 (98-107) mmol/L Carbon Dioxide 26 27 (22-30) mmol/L BUN 24 H 24 H (9-20) mg/dL Creatinine 1.13 0.99 (0.66-1.25) mg/dL Glucose 417 H 246 H (74-99) mg/dL Calcium 10.4 H 9.5 (8.4-10.2) mg/dL Total Bilirubin 0.7 1.1 (0.2-1.3) mg/dL AST 40 25 (17-59) U/L ALT 63 45 (21-72) U/L Alkaline Phosphatase 111 62 (38-126) U/L Total Protein 7.6 6.9 (6.3-8.2) g/dL Albumin 4.7 4.2 (3.5-5.0) g/dL <Jose Bradford - Last Filed: 02/02/19 17:10> History of Present Illness History of present illness: As above. Pancreatitis likely on the basis of alcohol use. Triglycerides also significantly elevated. No evidence of cholelithiasis. No evidence of pancreatic ischemia on recent CAT scan. Patient however remains quite tender. We'll follow closely. Keep nothing by mouth for now. Surgical - Exam Vital Signs Temp Pulse Resp BP Pulse Ox 98.4 F 105 H 16 147/89 98 02/01/19 18:02 02/01/19 18:02 02/01/19 18:02 02/01/19 18:02 02/01/19 18:02 Results - Labs 02/02/19 15:44 02/02/19 15:44 Abnormal Lab Results - Last 24 Hours (Table) 02/01/19 02/01/19 02/01/19 Range/Units 18:30 18:30 18:30 RBC 4.09 L (4.30-5.90) m/uL Hgb (13.0-17.5) gm/dL Hct 38.9 L (39.0-53.0) % Plt Count (150-450) k/uL Neutrophils # 7.8 H (1.3-7.7) k/uL Lymphocytes # 0.9 L (1.0-4.8) k/uL Sodium 134 L (137-145) mmol/L Chloride 93 L (98-107) mmol/L BUN 24 H (9-20) mg/dL Glucose 417 H (74-99) mg/dL POC Glucose (mg/dL) (75-99) mg/dL Plasma Lactic Acid Ralf 3.2 H* (0.7-2.0) mmol/L Calcium 10.4 H (8.4-10.2) mg/dL Triglycerides (<150) mg/dL Amylase (30-110) U/L Lipase 6404 H (23-300) U/L Urine Protein (Negative) Urine Glucose (UA) (Negative) 02/01/19 02/01/19 02/02/19 Range/Units 18:45 21:02 00:37 RBC (4.30-5.90) m/uL Hgb (13.0-17.5) gm/dL Hct (39.0-53.0) % Plt Count (150-450) k/uL Neutrophils # (1.3-7.7) k/uL Lymphocytes # (1.0-4.8) k/uL Sodium (137-145) mmol/L Chloride (98-107) mmol/L BUN (9-20) mg/dL Glucose (74-99) mg/dL POC Glucose (mg/dL) 385 H 277 H (75-99) mg/dL Plasma Lactic Acid Ralf (0.7-2.0) mmol/L Calcium (8.4-10.2) mg/dL Triglycerides (<150) mg/dL Amylase (30-110) U/L Lipase (23-300) U/L Urine Protein Trace H (Negative) Urine Glucose (UA) 4+ H (Negative) 02/02/19 02/02/19 02/02/19 Range/Units 06:38 08:09 08:09 RBC 3.89 L (4.30-5.90) m/uL Hgb 12.9 L (13.0-17.5) gm/dL Hct 37.1 L (39.0-53.0) % Plt Count (150-450) k/uL Neutrophils # (1.3-7.7) k/uL Lymphocytes # 0.9 L (1.0-4.8) k/uL Sodium 136 L (137-145) mmol/L Chloride (98-107) mmol/L BUN 24 H (9-20) mg/dL Glucose 246 H (74-99) mg/dL POC Glucose (mg/dL) 262 H (75-99) mg/dL Plasma Lactic Acid Ralf (0.7-2.0) mmol/L Calcium (8.4-10.2) mg/dL Triglycerides (<150) mg/dL Amylase 362 H* (30-110) U/L Lipase 6384 H (23-300) U/L Urine Protein (Negative) Urine Glucose (UA) (Negative) 02/02/19 02/02/19 02/02/19 Range/Units 11:40 15:44 15:44 RBC 3.83 L (4.30-5.90) m/uL Hgb 12.5 L (13.0-17.5) gm/dL Hct 36.8 L (39.0-53.0) % Plt Count 145 L (150-450) k/uL Neutrophils # (1.3-7.7) k/uL Lymphocytes # 0.9 L (1.0-4.8) k/uL Sodium (137-145) mmol/L Chloride (98-107) mmol/L BUN (9-20) mg/dL Glucose (74-99) mg/dL POC Glucose (mg/dL) 261 H (75-99) mg/dL Plasma Lactic Acid Ralf (0.7-2.0) mmol/L Calcium (8.4-10.2) mg/dL Triglycerides 1076 H (<150) mg/dL Amylase (30-110) U/L Lipase (23-300) U/L Urine Protein (Negative) Urine Glucose (UA) (Negative) 02/02/19 Range/Units 15:44 RBC (4.30-5.90) m/uL Hgb (13.0-17.5) gm/dL Hct (39.0-53.0) % Plt Count (150-450) k/uL Neutrophils # (1.3-7.7) k/uL Lymphocytes # (1.0-4.8) k/uL Sodium (137-145) mmol/L Chloride (98-107) mmol/L BUN 23 H (9-20) mg/dL Glucose 201 H (74-99) mg/dL POC Glucose (mg/dL) (75-99) mg/dL Plasma Lactic Acid Ralf (0.7-2.0) mmol/L Calcium (8.4-10.2) mg/dL Triglycerides (<150) mg/dL Amylase (30-110) U/L Lipase 3822 H (23-300) U/L Urine Protein (Negative) Urine Glucose (UA) (Negative) Diabetes panel 02/01/19 02/02/19 02/02/19 Range/Units 18:30 08:09 15:44 Sodium 134 L 136 L (137-145) mmol/L Potassium 4.3 3.9 (3.5-5.1) mmol/L Chloride 93 L 98 (98-107) mmol/L Carbon Dioxide 26 27 (22-30) mmol/L BUN 24 H 24 H (9-20) mg/dL Creatinine 1.13 0.99 (0.66-1.25) mg/dL Glucose 417 H 246 H (74-99) mg/dL Calcium 10.4 H 9.5 (8.4-10.2) mg/dL AST 40 25 (17-59) U/L ALT 63 45 (21-72) U/L Alkaline Phosphatase 111 62 (38-126) U/L Total Protein 7.6 6.9 (6.3-8.2) g/dL Albumin 4.7 4.2 (3.5-5.0) g/dL Triglycerides 1076 H (<150) mg/dL 02/02/19 Range/Units 15:44 Sodium 137 (137-145) mmol/L Potassium 3.5 (3.5-5.1) mmol/L Chloride 99 (98-107) mmol/L Carbon Dioxide 28 (22-30) mmol/L BUN 23 H (9-20) mg/dL Creatinine 1.02 (0.66-1.25) mg/dL Glucose 201 H (74-99) mg/dL Calcium 8.8 (8.4-10.2) mg/dL AST (17-59) U/L ALT (21-72) U/L Alkaline Phosphatase (38-126) U/L Total Protein (6.3-8.2) g/dL Albumin (3.5-5.0) g/dL Triglycerides (<150) mg/dL Calcium panel 02/01/19 02/02/19 02/02/19 Range/Units 18:30 08:09 15:44 Calcium 10.4 H 9.5 8.8 (8.4-10.2) mg/dL Albumin 4.7 4.2 (3.5-5.0) g/dL Pituitary panel 02/01/19 02/02/19 02/02/19 Range/Units 18:30 08:09 15:44 Sodium 134 L 136 L 137 (137-145) mmol/L Potassium 4.3 3.9 3.5 (3.5-5.1) mmol/L Chloride 93 L 98 99 (98-107) mmol/L Carbon Dioxide 26 27 28 (22-30) mmol/L BUN 24 H 24 H 23 H (9-20) mg/dL Creatinine 1.13 0.99 1.02 (0.66-1.25) mg/dL Glucose 417 H 246 H 201 H (74-99) mg/dL Calcium 10.4 H 9.5 8.8 (8.4-10.2) mg/dL Adrenal panel 02/01/19 02/02/19 02/02/19 Range/Units 18:30 08:09 15:44 Sodium 134 L 136 L 137 (137-145) mmol/L Potassium 4.3 3.9 3.5 (3.5-5.1) mmol/L Chloride 93 L 98 99 (98-107) mmol/L Carbon Dioxide 26 27 28 (22-30) mmol/L BUN 24 H 24 H 23 H (9-20) mg/dL Creatinine 1.13 0.99 1.02 (0.66-1.25) mg/dL Glucose 417 H 246 H 201 H (74-99) mg/dL Calcium 10.4 H 9.5 8.8 (8.4-10.2) mg/dL Total Bilirubin 0.7 1.1 (0.2-1.3) mg/dL AST 40 25 (17-59) U/L ALT 63 45 (21-72) U/L Alkaline Phosphatase 111 62 (38-126) U/L Total Protein 7.6 6.9 (6.3-8.2) g/dL Albumin 4.7 4.2 (3.5-5.0) g/dL
[2019-02-02 16:04] LABS: Basophils % (A) 0 %; Eosinophils # (A) 0.2 k/uL (0-0.7); Eosinophils % (A) 2 %; HCT 36.8 % (39.0-53.0); HGB 12.5 gm/dL (13.0-17.5); Lymphocytes # (A) 0.9 k/uL (1.0-4.8); Lymphocytes % (A) 13 %; MCH 32.5 pg (25.0-35.0); MCHC 33.9 g/dL (31.0-37.0); MCV 96.1 fL (80.0-100.0); Mean Platelet Volume 8.7; Monocytes # (A) 0.3 k/uL (0-1.0); Monocytes % (A) 4 %; Neutrophils % (A) 79 %; Platelet Count 145 k/uL (150-450); RBC 3.83 m/uL (4.30-5.90); RDW 12.9 % (11.5-15.5); WBC 6.4 k/uL (3.8-10.6)
[2019-02-02 16:13] LABS: African American GFR (CKD) >90 (>60 ml/min/1.73 sqM); Anion Gap 10 mmol/L; Blood Urea Nitrogen 23 mg/dL (9-20); Calcium 8.8 mg/dL (8.4-10.2); Carbon Dioxide 28 mmol/L (22-30); Chloride 99 mmol/L (98-107); Glucose 201 mg/dL (74-99); Potassium 3.5 mmol/L (3.5-5.1); Sodium 137 mmol/L (137-145)
[2019-02-02 16:26] LABS: Lipase 3822 U/L (23-300)
[2019-02-02 16:31] VITALS: BMI 44.2
--- NOTE | 2019-02-02 17:25 | XR ---
EXAMINATION: XR chest 1V portable DATE AND TIME: 02/02/2019 5:09 PM CLINICAL INDICATION: PHH; chf TECHNIQUE: Departmental protocol COMPARISON: 06/18/2016 FINDINGS: The lungs appear to be clear. The diaphragms are elevated, consistent with low lung inflation at the moment of x-ray exposure. The pleural spaces are negative. The cardiac silhouette is mildly enlarged. The remainder of the mediastinal silhouette is unremarkable. The skeletal structures and soft tissues are negative for acute findings. IMPRESSION: NO ACUTE PROCESS.
[2019-02-02 18:10] LABS: Glucose,Whole Blood 208 mg/dL (75-99)
--- NOTE | 2019-02-02 19:15 | PN ---
PROGRESS NOTE DATE OF SERVICE: 02/02/2019. This 43-year-old gentleman admitted with acute severe pancreatitis had significant abdominal pain which is increasing this morning at this time. Dr. Huynh is following the patient in the outpatient setting. The patient also has significant history of EtOH also. Multiple consultants including surgery and gastroenterology following the patient closely. Ultrasound of the gallbladder showed hepatic steatosis and heterogeneous pancreatic parenchyma also. The patient kept n.p.o. at this time. PAST MEDICAL HISTORY: Reviewed. REVIEW OF SYSTEMS: CARDIOVASCULAR: No angina or palpitations. RESPIRATION: No cough. GI mentioned earlier. : As mentioned earlier. CENTRAL NERVOUS SYSTEM: No focal deficits. CURRENT MEDICATIONS: Reviewed and include: 1. Heparin 5000 subcu b.i.d. 2. Dilaudid 0.5 q.3 p.r.n. 3. NovoLog scale. 4. Toradol. 5. Meropenem 2 g IV q.8h. 6. Narcan. 7. Zofran. 8. Protonix IV b.i.d. 9. Restoril 15 mg q.h.s. p.r.n. PHYSICAL EXAM: Patient is alert, oriented x3. The pulse is 104. Blood pressure is 114/70, respiration 16, temperature 98.4, pulse ox 98% on room air. The T-max 100 degrees. HEENT are conjunctivae normal. NECK: No jugular venous distention. CARDIAC: S1, S2 muffled. RESPIRATORY: Breath sounds diminished at the bases. A few scattered rhonchi and crackles. ABDOMEN: Soft, obese. Mild diffuse tenderness present. No guarding. No rigidity. Otherwise, no rebound tenderness. The flanks are resonant. No ascites. No mass palpable. Bowel sounds diminished. LEGS: No edema. No swelling. NERVOUS SYSTEM: Higher functions as mentioned earlier. Moves all four limbs. Lymphatics: No lymph nodes palpable in the neck, axillae or groin. SKIN: No ulcer, rash or bleeding. LABS: WBC 6.5, hemoglobin 12.2, sodium 137, potassium 3.5. The triglycerides are 1076 and amylase 362 and lipase 3822. ASSESSMENT: 1. Acute severe pancreatitis with possible sepsis with severe abdominal pain, present on admission. 2. History of alcohol intake. 3. Hypertriglyceridemia. 4. Diabetes mellitus type 2, uncontrolled with hyperglycemia with no evidence of ketosis. 5. Hyponatremia. 6. Morbid obesity with body mass index of 44.3. 7. History of gastroesophageal reflux disease. 8. Hypertension. 9. Hyperlipidemia. 10.History of sleep apnea. 11.History of left lung mass. 12.History of degenerative joint disease. 13.History of anxiety depression. 14.Remote history of nicotine dependence. 15.FULL CODE. RECOMMENDATIONS AND DISCUSSION: In this 43-year-old gentleman who presented with multiple complex medical issues, we will monitor the patient closely, continue the current medications, management and symptomatic treatment. Continue IV antibiotics. Continue to follow the cultures. Other symptomatic treatment will be provided. Follow closely with Gastroenterology as well as surgery. Prognosis guarded because of multiple complex medical issues and further recommendations to follow. Repeat enzymes tomorrow. Otherwise, DVT prophylaxis. Baseline EKG and chest x-ray. Further recommendations to follow. ADIA / ELFEGO: [id number] / MTDD
[2019-02-02 20:40] LABS: Glucose,Whole Blood 220 mg/dL (75-99)
[2019-02-02] MEDS ORDERED: ACETAMINOPHEN TAB 325 MG TAB PO PRN (20:42)
[2019-02-03] MEDS ORDERED: KETOROLAC 30 MG/ML 1 ML VIAL ONE (00:15)
[2019-02-03 03:47] LABS: Glucose,Whole Blood 182 mg/dL (75-99)
[2019-02-03] MEDS: SODIUM CHLORIDE 0.9% 1,000 ML IV SCH ×4 (05:16→17:43)
[2019-02-03] MEDS: KETOROLAC 30 MG/ML 1 ML VIAL IVP SCH ×4 (05:16→17:41)
[2019-02-03 05:17] LABS: Appearance,Urine Clear (Clear); Bilirubin,Urine Negative (Negative); Blood,Urine Negative (Negative); Color,Urine Yellow; Glucose,Urine (UA) 4+ (Negative); Granular Casts,Urine 1 /lpf (0); Ketones,Urine 1+ (Negative); Leukocyte Esterase,Urine Negative (Negative); Mucus,Urine Occasional /hpf; Nitrite,Urine Negative (Negative); Protein,Urine 1+ (Negative); RBC,Urine 1 /hpf (0-5); Squamous Epithelial Cell,Urine 1 /hpf (0-4); WBC,Urine 2 /hpf (0-5)
[2019-02-03] MEDS: MEROPENEM 2 GM in SODIUM CHLORIDE 0.9% 100 ML IVPB SCH ×3 (05:17→17:41)
[2019-02-03 07:48] LABS: Glucose,Whole Blood 238 mg/dL (75-99)
[2019-02-03] MEDS: HYDROmorphone 0.5 MG/0.5 ML SYRINGE IVP PRN (07:53)
[2019-02-03] MEDS: PANTOPRAZOLE 40 MG/10 ML VIAL IVP SCH ×2 (07:53→20:05)
[2019-02-03] MEDS: INSULIN ASPART (NovoLOG) 100 UNIT/ML VIAL SQ SCH ×4 (07:55→20:59)
[2019-02-03] MEDS: HEPARIN SODIUM,PORCINE 5,000 UNIT/ML 1 ML VIAL SQ SCH ×2 (07:55→20:05)
[2019-02-03] MEDS: SIMETHICONE 40 MG/0.6 ML DROPS 2,000 MG/30 ML BOTTLE PO PRN ×2 (09:08→17:45)
[2019-02-03 09:11] LABS: Basophils % (A) 0 %; Eosinophils # (A) 0.2 k/uL (0-0.7); Eosinophils % (A) 3 %; HCT 36.8 % (39.0-53.0); HGB 12.2 gm/dL (13.0-17.5); Lymphocytes # (A) 1.1 k/uL (1.0-4.8); Lymphocytes % (A) 15 %; MCH 32.5 pg (25.0-35.0); MCHC 33.3 g/dL (31.0-37.0); MCV 97.9 fL (80.0-100.0); Mean Platelet Volume 8.4; Monocytes # (A) 0.4 k/uL (0-1.0); Monocytes % (A) 5 %; Neutrophils # (A) 5.3 k/uL (1.3-7.7); Neutrophils % (A) 75 %; Platelet Count 162 k/uL (150-450); RBC 3.76 m/uL (4.30-5.90); RDW 13.1 % (11.5-15.5); WBC 7.1 k/uL (3.8-10.6)
[2019-02-03 09:22] LABS: IgG Subclass 3 21.9 mg/dL (11.0-85.0); IgG Subclass 4 18.2 mg/dL (3.0-175.0)
[2019-02-03] MEDS ORDERED: SODIUM CHLORIDE 0.9% 500 ML 500 ML IV ONE (11:20)
--- NOTE | 2019-02-03 11:24 | P.PN ---
Subjective Progress Note Date: 02/03/19 Principal diagnosis: Severe pancreatitis chronic alcoholism Feeling much better. Abdominal pain improving. T-max 100.8. Blood cultures showing no growth. Lipase decreased yesterday 3822. Morning chemistries pending. Triglycerides 1076. Minimal urine output. Received fluid bolus yesterday. Maintenance fluids 150 mL an hour. CHUCK IgG subclass 1-4 negative. Objective - Vital Signs Vital signs: Vital Signs Temp 98.8 F 02/03/19 07:13 Pulse 96 02/03/19 07:13 Resp 20 02/03/19 07:13 BP 118/78 02/03/19 07:13 Pulse Ox 96 02/03/19 07:13 Intake & Output 02/02/19 02/03/19 02/03/19 18:59 06:59 18:59 Intake Total 1250 Balance 1250 Weight 160.7 kg Intake: Intake, IV Titration 1250 Amount Sodium Chloride 0.9% 1, 1250 000 ml @ 150 mls/hr IV . Q6H40M [facility] Rx#:[id number] Other: Voiding Method Toilet Toilet # Voids 2 1 - Exam General appearance: The patient is alert, oriented, in no acute distress. HET: Head is normocephalic and atraumatic. Pupils are equal and reactive. Oropharynx is clear without lesions. Neck: Supple without lymphadenopathy. Trachea midline. Heart: S1 S2. Regular rate and rhythm. Lungs: No crackles or wheezes are heard. Abdomen: Soft, mildly bloated tenderness to the midepigastric left upper quadrant with bowel sounds. No peritoneal signs. No palpable organomegaly or masses. Extremities: Normal skin color and turgor. No cyanosis, rash, ulceration, clubbing, or edema. Radial and pedal pulses are 2/4 bilaterally. Neurological: No focal deficits. Strength and sensation are grossly intact. - Labs CBC & Chem 7: 02/03/19 07:39 02/02/19 15:44 Labs: Abnormal Lab Results - Last 24 Hours (Table) 02/02/19 02/02/19 02/02/19 Range/Units 11:40 15:44 15:44 RBC 3.83 L (4.30-5.90) m/uL Hgb 12.5 L (13.0-17.5) gm/dL Hct 36.8 L (39.0-53.0) % Plt Count 145 L (150-450) k/uL Lymphocytes # 0.9 L (1.0-4.8) k/uL BUN (9-20) mg/dL Glucose (74-99) mg/dL POC Glucose (mg/dL) 261 H (75-99) mg/dL Hemoglobin A1c (4.0-6.0) % Triglycerides 1076 H (<150) mg/dL Lipase (23-300) U/L Ur Specific [place] (1.001-1.035) Urine Protein (Negative) Urine Glucose (UA) (Negative) Urine Ketones (Negative) Urine Mucus (None) /[facility] 02/02/19 02/02/19 02/02/19 Range/Units 15:44 15:44 18:04 RBC (4.30-5.90) m/uL Hgb (13.0-17.5) gm/dL Hct (39.0-53.0) % Plt Count (150-450) k/uL Lymphocytes # (1.0-4.8) k/uL BUN 23 H (9-20) mg/dL Glucose 201 H (74-99) mg/dL POC Glucose (mg/dL) 208 H (75-99) mg/dL Hemoglobin A1c 10.0 H (4.0-6.0) % Triglycerides (<150) mg/dL Lipase 3822 H (23-300) U/L Ur Specific [place] (1.001-1.035) Urine Protein (Negative) Urine Glucose (UA) (Negative) Urine Ketones (Negative) Urine Mucus (None) /[facility] 02/02/19 02/03/19 02/03/19 Range/Units 20:39 00:19 02:24 RBC (4.30-5.90) m/uL Hgb (13.0-17.5) gm/dL Hct (39.0-53.0) % Plt Count (150-450) k/uL Lymphocytes # (1.0-4.8) k/uL BUN (9-20) mg/dL Glucose (74-99) mg/dL POC Glucose (mg/dL) 220 H 182 H (75-99) mg/dL Hemoglobin A1c (4.0-6.0) % Triglycerides (<150) mg/dL Lipase (23-300) U/L Ur Specific [place] 1.050 H (1.001-1.035) Urine Protein 1+ H (Negative) Urine Glucose (UA) 4+ H (Negative) Urine Ketones 1+ H (Negative) Urine Mucus Occasional H (None) /hpf 02/03/19 02/03/19 Range/Units 07:26 07:39 RBC 3.76 L (4.30-5.90) m/uL Hgb 12.2 L (13.0-17.5) gm/dL Hct 36.8 L (39.0-53.0) % Plt Count (150-450) k/uL Lymphocytes # (1.0-4.8) k/uL BUN (9-20) mg/dL Glucose (74-99) mg/dL POC Glucose (mg/dL) 238 H (75-99) mg/dL Hemoglobin A1c (4.0-6.0) % Triglycerides (<150) mg/dL Lipase (23-300) U/L Ur Specific [place] (1.001-1.035) Urine Protein (Negative) Urine Glucose (UA) (Negative) Urine Ketones (Negative) Urine Mucus (None) /hpf Microbiology - Last 24 Hours (Table) 02/03/19 00:19 Urine Culture - Preliminary Urine,Voided 02/02/19 01:34 Blood Culture - Preliminary Blood No Growth after 24 hours Assessment and Plan (1) Pancreatitis, acute Narrative/Plan: 43-year-old male admitted with severe acute pancreatitis Current Visit: Yes Status: Acute Code(s): K85.90 - ACUTE PANCREATITIS WITHOUT NECROSIS OR INFECTION, UNSP SNOMED Code(s): 342268351 (2) ETOH abuse Current Visit: Yes Status: Acute Code(s): F10.10 - ALCOHOL ABUSE, UNCOMPL ICATED SNOMED Code(s): 96485049 (3) Morbid obesity with BMI of 40.0-44.9, adult Current Visit: Yes Status: Acute Code(s): E66.01 - MORBID (SEVERE) OBESITY DUE TO EXCESS CALORIES; Z68.41 - BODY MASS INDEX (BMI) 40.0-44.9, ADULT SNOMED Code(s): 280351899 (4) Hypertriglyceridemia Current Visit: Yes Status: Acute Code(s): E78.1 - PURE HYPERGLYCERIDEMIA SNOMED Code(s): 369757363 (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 Normal saline bolus 500 mL 1. Continue maintenance IV fluids 150 mL an hour. CBC BMP lipase daily. Clear liquids with ensure clear. Alcohol abstinence advised. Outpatient MRI pancreas advised. We'll continue to follow with you. Assessment and plan a care discussed with Dr. Pierce
[2019-02-03 11:28] LABS: ALT 31 U/L (21-72); AST 20 U/L (17-59); African American GFR (CKD) >90 (>60 ml/min/1.73 sqM); Albumin 3.8 g/dL (3.5-5.0); Alkaline Phosphatase 52 U/L (38-126); Amylase 140 U/L (30-110); Anion Gap 10 mmol/L; Blood Urea Nitrogen 26 mg/dL (9-20); Calcium 8.6 mg/dL (8.4-10.2); Carbon Dioxide 28 mmol/L (22-30); Chloride 99 mmol/L (98-107); Cholesterol 213 mg/dL (<200); Glucose 206 mg/dL (74-99); HDL Cholesterol 29 mg/dL (40-60); Lipase 859 U/L (23-300); Magnesium 1.4 mg/dL (1.6-2.3); Potassium 3.8 mmol/L (3.5-5.1); Sodium 137 mmol/L (137-145); Total Bilirubin 1.4 mg/dL (0.2-1.3); Total Protein 6.6 g/dL (6.3-8.2)
[2019-02-03 11:36] LABS: Triglycerides 990 mg/dL (<150)
--- NOTE | 2019-02-03 11:36 | P.PN ---
<Callie Mackay Edu - Last Filed: 02/03/19 11:33> Subjective Progress Note Date: 02/03/19 CHIEF COMPLAINT: abdominal pain HISTORY OF PRESENT ILLNESS: Patient examined this morning at bedside. Patient states he is feeling much better today. His abdominal pain has improved. He denies nausea or vomiting. Lab work from this morning is pending. PHYSICAL EXAM: VITAL SIGNS: Reviewed. GENERAL: Well-developed in no acute distress. HEENT: No sclera icterus. Extraocular movements grossly intact. Moist buccal mucosa. Head is atraumatic, normocephalic. ABDOMEN: Soft. Nondistended. Tenderness upon palpation of epigastric region and left upper and lower quadrant. Positive bowel sounds. NEUROLOGIC: Alert and oriented. Cranial nerves II through XII grossly intact. ASSESSMENT: 1. Abdominal pain, nausea, vomiting 1 day 2. Acute pancreatitis 3. Alcohol abuse 4. Hepatomegaly PLAN: 1. Begin clear liquid diet 2. Continue IV fluids 3. Alcohol abstinence recommended 4. Monitor labs 5. Pain control 6. GI following as well and recommends outpatient MRI of the pancreas Nurse practitioner note has been reviewed by physician. Signing provider agrees with the documented findings, assessment, and plan of care. Objective - Vital Signs Vital signs: Vital Signs Temp 98.8 F 02/03/19 07:13 Pulse 96 02/03/19 07:13 Resp 20 02/03/19 07:13 BP 118/78 02/03/19 07:13 Pulse Ox 96 02/03/19 07:13 Intake & Output 02/02/19 02/03/19 02/03/19 18:59 06:59 18:59 Intake Total 1250 Balance 1250 Weight 160.7 kg Intake: Intake, IV Titration 1250 Amount Sodium Chloride 0.9% 1, 1250 000 ml @ 150 mls/hr IV . Q6H40M [facility] Rx#:[id number] Other: Voiding Method Toilet Toilet # Voids 2 1 - Labs CBC & Chem 7: 02/03/19 07:39 02/02/19 15:44 Labs: Abnormal Lab Results - Last 24 Hours (Table) 02/02/19 02/02/19 02/02/19 Range/Units 11:40 15:44 15:44 RBC 3.83 L (4.30-5.90) m/uL Hgb 12.5 L (13.0-17.5) gm/dL Hct 36.8 L (39.0-53.0) % Plt Count 145 L (150-450) k/uL Lymphocytes # 0.9 L (1.0-4.8) k/uL BUN (9-20) mg/dL Glucose (74-99) mg/dL POC Glucose (mg/dL) 261 H (75-99) mg/dL Hemoglobin A1c (4.0-6.0) % Triglycerides 1076 H (<150) mg/dL Lipase (23-300) U/L Ur Specific [place] (1.001-1.035) Urine Protein (Negative) Urine Glucose (UA) (Negative) Urine Ketones (Negative) Urine Mucus (None) /hpf 02/02/19 02/02/19 02/02/19 Range/Units 15:44 15:44 18:04 RBC (4.30-5.90) m/uL Hgb (13.0-17.5) gm/dL Hct (39.0-53.0) % Plt Count (150-450) k/uL Lymphocytes # (1.0-4.8) k/uL BUN 23 H (9-20) mg/dL Glucose 201 H (74-99) mg/dL POC Glucose (mg/dL) 208 H (75-99) mg/dL Hemoglobin A1c 10.0 H (4.0-6.0) % Triglycerides (<150) mg/dL Lipase 3822 H (23-300) U/L Ur Specific [place] (1.001-1.035) Urine Protein (Negative) Urine Glucose (UA) (Negative) Urine Ketones (Negative) Urine Mucus (None) /hpf 02/02/19 02/03/19 02/03/19 Range/Units 20:39 00:19 02:24 RBC (4.30-5.90) m/uL Hgb (13.0-17.5) gm/dL Hct (39.0-53.0) % Plt Count (150-450) k/uL Lymphocytes # (1.0-4.8) k/uL BUN (9-20) mg/dL Glucose (74-99) mg/dL POC Glucose (mg/dL) 220 H 182 H (75-99) mg/dL Hemoglobin A1c (4.0-6.0) % Triglycerides (<150) mg/dL Lipase (23-300) U/L Ur Specific [place] 1.050 H (1.001-1.035) Urine Protein 1+ H (Negative) Urine Glucose (UA) 4+ H (Negative) Urine Ketones 1+ H (Negative) Urine Mucus Occasional H (None) /hpf 02/03/19 02/03/19 Range/Units 07:26 07:39 RBC 3.76 L (4.30-5.90) m/uL Hgb 12.2 L (13.0-17.5) gm/dL Hct 36.8 L (39.0-53.0) % Plt Count (150-450) k/uL Lymphocytes # (1.0-4.8) k/uL BUN (9-20) mg/dL Glucose (74-99) mg/dL POC Glucose (mg/dL) 238 H (75-99) mg/dL Hemoglobin A1c (4.0-6.0) % Triglycerides (<150) mg/dL Lipase (23-300) U/L Ur Specific [place] (1.001-1.035) Urine Protein (Negative) Urine Glucose (UA) (Negative) Urine Ketones (Negative) Urine Mucus (None) /hpf Microbiology - Last 24 Hours (Table) 02/03/19 00:19 Urine Culture - Preliminary Urine,Voided 02/02/19 01:34 Blood Culture - Preliminary Blood No Growth after 24 hours <Jose Bradford - Last Filed: 02/03/19 20:42> Subjective As above. Patient's pain is improved. He has hungry. Labs noted. Begin clear liquids. Ambulate. Objective - Vital Signs Vital signs: Vital Signs Temp 98.8 F 02/03/19 18:37 Pulse 113 H 02/03/19 18:37 Resp 20 02/03/19 18:37 BP 141/79 02/03/19 18:37 Pulse Ox 96 02/03/19 18:37 Intake & Output 02/03/19 02/03/19 02/04/19 06:59 18:59 06:59 Other: Voiding Method Toilet Toilet # Voids 1 2 - Labs CBC & Chem 7: 02/03/19 07:39 02/03/19 07:39 Labs: Abnormal Lab Results - Last 24 Hours (Table) 02/02/19 02/03/19 02/03/19 Range/Units 15:44 00:19 02:24 RBC (4.30-5.90) m/uL Hgb (13.0-17.5) gm/dL Hct (39.0-53.0) % BUN (9-20) mg/dL Glucose (74-99) mg/dL POC Glucose (mg/dL) 182 H (75-99) mg/dL Hemoglobin A1c 10.0 H (4.0-6.0) % Magnesium (1.6-2.3) mg/dL Total Bilirubin (0.2-1.3) mg/dL Triglycerides (<150) mg/dL Cholesterol (<200) mg/dL HDL Cholesterol (40-60) mg/dL Amylase (30-110) U/L Lipase (23-300) U/L Ur Specific [place] 1.050 H (1.001-1.035) Urine Protein 1+ H (Negative) Urine Glucose (UA) 4+ H (Negative) Urine Ketones 1+ H (Negative) Urine Bacteria Moderate H (None) /hpf Urine Mucus Occasional H (None) /hpf 02/03/19 02/03/19 02/03/19 Range/Units 07:26 07:39 07:39 RBC 3.76 L (4.30-5.90) m/uL Hgb 12.2 L (13.0-17.5) gm/dL Hct 36.8 L (39.0-53.0) % BUN 26 H (9-20) mg/dL Glucose 206 H (74-99) mg/dL POC Glucose (mg/dL) 238 H (75-99) mg/dL Hemoglobin A1c (4.0-6.0) % Magnesium 1.4 L (1.6-2.3) mg/dL Total Bilirubin 1.4 H (0.2-1.3) mg/dL Triglycerides 990 H (<150) mg/dL Cholesterol 213 H (<200) mg/dL HDL Cholesterol 29 L (40-60) mg/dL Amylase 140 H (30-110) U/L Lipase 859 H (23-300) U/L Ur Specific [place] (1.001-1.035) Urine Protein (Negative) Urine Glucose (UA) (Negative) Urine Ketones (Negative) Urine Bacteria (None) /hpf Urine Mucus (None) /hpf 02/03/19 02/03/19 Range/Units 11:34 17:13 RBC (4.30-5.90) m/uL Hgb (13.0-17.5) gm/dL Hct (39.0-53.0) % BUN (9-20) mg/dL Glucose (74-99) mg/dL POC Glucose (mg/dL) 173 H 195 H (75-99) mg/dL Hemoglobin A1c (4.0-6.0) % Magnesium (1.6-2.3) mg/dL Total Bilirubin (0.2-1.3) mg/dL Triglycerides (<150) mg/dL Cholesterol (<200) mg/dL HDL Cholesterol (40-60) mg/dL Amylase (30-110) U/L Lipase (23-300) U/L Ur Specific [place] (1.001-1.035) Urine Protein (Negative) Urine Glucose (UA) (Negative) Urine Ketones (Negative) Urine Bacteria (None) /hpf Urine Mucus (None) /hpf Microbiology - Last 24 Hours (Table) 02/03/19 00:19 Urine Culture - Preliminary Urine,Voided 02/02/19 01:34 Blood Culture - Preliminary Blood No Growth after 24 hours
[2019-02-03 11:45] LABS: Glucose,Whole Blood 173 mg/dL (75-99)
[2019-02-03] MEDS: MAGNESIUM SULFATE-D5W PMX 1 GM in DEXTROSE/WATER 1 100ML.BAG IVPB SCH ×2 (12:15→13:49)
[2019-02-03 16:53] LABS: Bacteria,Urine Moderate /hpf
[2019-02-03 17:24] LABS: Glucose,Whole Blood 195 mg/dL (75-99)
--- NOTE | 2019-02-03 17:35 | PN ---
PROGRESS NOTE DATE OF SERVICE: 02/03/2019 This 43-year-old gentleman was admitted with acute severe pancreatitis with severe pain. The patient also had hypertriglyceridemia which was more than 1000. Multiple consultants are following the patient closely, including Surgery and Gastroenterology. The most recent chest x-ray showed no acute abnormality. Amylase and lipase are being monitored. Past medical history reviewed. REVIEW OF SYSTEMS: CARDIOVASCULAR SYSTEM: No angina, palpitations. RESPIRATORY SYSTEM: As mentioned earlier. GI: As mentioned earlier. : No dysuria or retention. NERVOUS SYSTEM: No numbness, weakness. CURRENT MEDICATIONS: Reviewed. They include: 1. Tylenol 650 q.6 p.r.n. 2. Heparin 5000 units subcutaneously b.i.d. 3. Dilaudid p.r.n. 4. NovoLog before meals and at bedtime. 5. Toradol 15 mg IV q.6 p.r.n. 6. Meropenem 2 grams IV q.8. 7. Narcan. 8. Zofran. 9. Protonix. 10.Restoril. PHYSICAL EXAMINATION: Patient is alert, oriented x3. Pulse is 92, blood pressure 130/79, respirations 16, temperature 99.2, pulse ox 97% room air. HEENT: Conjunctivae normal. NECK: No jugular venous distention. CARDIOVASCULAR SYSTEM: S1, S2 muffled. RESPIRATORY SYSTEM: Breath sounds diminished at the bases. Scattered rhonchi. No crackles. ABDOMEN: Soft, obese. Mild diffuse tenderness. No guarding. No rigidity. No mass palpable. LEGS: No edema. No swelling. NERVOUS SYSTEM: No focal deficit. LABS: WBC 7.1, hemoglobin 12.2, magnesium 1.4. Triglycerides 990, cholesterol 213. Lipase is 850. Amylase is 140. ASSESSMENT: 1. Acute severe pancreatitis with possible sepsis with severe abdominal pain, present on admission, possibly secondary to alcohol or hypertriglyceridemia. 2. History of alcohol intake. 3. Hypertriglyceridemia and hyperlipidemia. 4. Diabetes mellitus, type 2, uncontrolled, with hyperglycemia with no evidence of ketosis. 5. Hyponatremia. 6. Hypovolemic. 7. Morbid obesity with a body mass index of 44.3. 8. History of gastroesophageal reflux disease. 9. Hypertension. 10.Hyperlipidemia. 11.History of sleep apnea. 12.History of left lung mass. 13.History of degenerative joint disease. 14.History of anxiety, depression. 15.Remote history of nicotine dependence. 16.Hypomagnesemia. 17.FULL CODE. RECOMMENDATIONS AND DISCUSSION: I recommend to continue current medications, continue with the monitoring, symptomatic treatment. We will monitor the patient closely. Continue with clear liquids. Otherwise, repeat labs. Will supplement magnesium and continue the rest of the medications. DVT prophylaxis. Guarded prognosis because of multiple complex medical issues. Further recommendations to follow. MMODL / IJN: [id number] /
[2019-02-03 20:47] LABS: Glucose,Whole Blood 246 mg/dL (75-99)
[2019-02-03 21:35] VITALS: RESP 16
[2019-02-03] MEDS: HYDROmorphone 1 MG/ML 1 ML SYRINGE IVP PRN (21:55)
[2019-02-04 02:15] LABS: Glucose,Whole Blood 142 mg/dL (75-99)
[2019-02-04] MEDS: SODIUM CHLORIDE 0.9% 1,000 ML IV SCH ×3 (02:15→12:56)
[2019-02-04] MEDS: MEROPENEM 2 GM in SODIUM CHLORIDE 0.9% 100 ML IVPB SCH ×2 (02:26→09:38)
[2019-02-04 05:48] VITALS: BP 109/65; PULSE 89; TEMP 98.1
[2019-02-04 07:12] LABS: Glucose,Whole Blood 176 mg/dL (75-99)
[2019-02-04] MEDS: INSULIN ASPART (NovoLOG) 100 UNIT/ML VIAL SQ SCH ×2 (08:09→12:58)
[2019-02-04] MEDS: HEPARIN SODIUM,PORCINE 5,000 UNIT/ML 1 ML VIAL SQ SCH (08:10)
[2019-02-04] MEDS: PANTOPRAZOLE 40 MG/10 ML VIAL IVP SCH (08:10)
[2019-02-04 09:59] LABS: Basophils % (A) 0 %; Eosinophils # (A) 0.3 k/uL (0-0.7); Eosinophils % (A) 4 %; Lymphocytes % (A) 16 %; MCH 33.5 pg (25.0-35.0); MCHC 34.4 g/dL (31.0-37.0); MCV 97.2 fL (80.0-100.0); Mean Platelet Volume 8.3; Monocytes # (A) 0.3 k/uL (0-1.0); Monocytes % (A) 5 %; Neutrophils % (A) 74 %; Platelet Count 154 k/uL (150-450); RBC 3.29 m/uL (4.30-5.90); RDW 14.1 % (11.5-15.5); WBC 6.7 k/uL (3.8-10.6)
[2019-02-04 10:12] LABS: ALT 32 U/L (21-72); AST 27 U/L (17-59); African American GFR (CKD) >90 (>60 ml/min/1.73 sqM); Albumin 3.6 g/dL (3.5-5.0); Alkaline Phosphatase 49 U/L (38-126); Amylase 64 U/L (30-110); Anion Gap 10 mmol/L; Blood Urea Nitrogen 15 mg/dL (9-20); Calcium 8.5 mg/dL (8.4-10.2); Carbon Dioxide 25 mmol/L (22-30); Chloride 101 mmol/L (98-107); Glucose 200 mg/dL (74-99); Lipase 472 U/L (23-300); Potassium 3.9 mmol/L (3.5-5.1); Sodium 136 mmol/L (137-145); Total Bilirubin 0.9 mg/dL (0.2-1.3); Total Protein 6.2 g/dL (6.3-8.2)
--- NOTE | 2019-02-04 11:36 | P.PN ---
<Callie Mackay Edu - Last Filed: 02/04/19 11:34> Subjective Progress Note Date: 02/04/19 CHIEF COMPLAINT: abdominal pain HISTORY OF PRESENT ILLNESS: Patient examined this morning at bedside. Denies abdominal pain. He denies nausea or vomiting. Tolerating clear liquid diet. Amylase 64. Lipase 472. Patient anxious to be discharged home. PHYSICAL EXAM: VITAL SIGNS: Reviewed. GENERAL: Well-developed in no acute distress. HEENT: No sclera icterus. Extraocular movements grossly intact. Moist buccal mucosa. Head is atraumatic, normocephalic. ABDOMEN: Soft. Nondistended. Nontender. Positive bowel sounds. NEUROLOGIC: Alert and oriented. Cranial nerves II through XII grossly intact. ASSESSMENT: 1. Abdominal pain, nausea, vomiting 1 day 2. Acute pancreatitis 3. Alcohol abuse 4. Hepatomegaly PLAN: Advance diet to full liquid Alcohol abstinence recommended GI following as well and recommends outpatient MRI of the pancreas Stable from a surgical perspective Nurse practitioner note has been reviewed by physician. Signing provider agrees with the documented findings, assessment, and plan of care. Objective - Vital Signs Vital signs: Vital Signs Temp 98.1 F 02/04/19 05:05 Pulse 89 02/04/19 05:05 Resp 16 02/04/19 05:05 BP 109/65 02/04/19 05:05 Pulse Ox 99 02/04/19 05:05 Intake & Output 02/03/19 02/04/19 02/04/19 18:59 06:59 18:59 Other: Voiding Method Toilet # Voids 2 1 - Labs CBC & Chem 7: 02/04/19 09:24 02/04/19 09:24 Labs: Abnormal Lab Results - Last 24 Hours (Table) 02/03/19 02/03/19 02/03/19 Range/Units 00:19 07:39 11:34 RBC (4.30-5.90) m/uL Hgb (13.0-17.5) gm/dL Hct (39.0-53.0) % Sodium (137-145) mmol/L BUN 26 H (9-20) mg/dL Glucose 206 H (74-99) mg/dL POC Glucose (mg/dL) 173 H (75-99) mg/dL Magnesium 1.4 L (1.6-2.3) mg/dL Total Bilirubin 1.4 H (0.2-1.3) mg/dL Total Protein (6.3-8.2) g/dL Triglycerides 990 H (<150) mg/dL Cholesterol 213 H (<200) mg/dL HDL Cholesterol 29 L (40-60) mg/dL Amylase 140 H (30-110) U/L Lipase 859 H (23-300) U/L Urine Bacteria Moderate H (None) /hpf 02/03/19 02/03/19 02/04/19 Range/Units 17:13 20:46 02:14 RBC (4.30-5.90) m/uL Hgb (13.0-17.5) gm/dL Hct (39.0-53.0) % Sodium (137-145) mmol/L BUN (9-20) mg/dL Glucose (74-99) mg/dL POC Glucose (mg/dL) 195 H 246 H 142 H (75-99) mg/dL Magnesium (1.6-2.3) mg/dL Total Bilirubin (0.2-1.3) mg/dL Total Protein (6.3-8.2) g/dL Triglycerides (<150) mg/dL Cholesterol (<200) mg/dL HDL Cholesterol (40-60) mg/dL Amylase (30-110) U/L Lipase (23-300) U/L Urine Bacteria (None) /hpf 02/04/19 02/04/19 02/04/19 Range/Units 07:10 09:24 09:24 RBC 3.29 L (4.30-5.90) m/uL Hgb 11.0 L (13.0-17.5) gm/dL Hct 32.0 L (39.0-53.0) % Sodium 136 L (137-145) mmol/L BUN (9-20) mg/dL Glucose 200 H (74-99) mg/dL POC Glucose (mg/dL) 176 H (75-99) mg/dL Magnesium (1.6-2.3) mg/dL Total Bilirubin (0.2-1.3) mg/dL Total Protein 6.2 L (6.3-8.2) g/dL Triglycerides (<150) mg/dL Cholesterol (<200) mg/dL HDL Cholesterol (40-60) mg/dL Amylase (30-110) U/L Lipase 472 H (23-300) U/L Urine Bacteria (None) /hpf Microbiology - Last 24 Hours (Table) 02/02/19 01:34 Blood Culture - Preliminary Blood No Growth after 48 hours 02/03/19 00:19 Urine Culture - Preliminary Urine,Voided <Jose Bradford - Last Filed: 02/04/19 15:32> Subjective As above. Patient discharge prior to my evaluation. Objective - Vital Signs Vital signs: Vital Signs Temp 98.1 F 02/04/19 05:05 Pulse 89 02/04/19 05:05 Resp 16 02/04/19 05:05 BP 109/65 02/04/19 05:05 Pulse Ox 99 02/04/19 05:05 Intake & Output 02/03/19 02/04/19 02/04/19 18:59 06:59 18:59 Weight 160.7 kg Other: Voiding Method Toilet # Voids 2 1 - Labs CBC & Chem 7: 02/04/19 09:24 02/04/19 09:24 Labs: Abnormal Lab Results - Last 24 Hours (Table) 02/03/19 02/03/19 02/03/19 Range/Units 00:19 17:13 20:46 RBC (4.30-5.90) m/uL Hgb (13.0-17.5) gm/dL Hct (39.0-53.0) % Sodium (137-145) mmol/L Glucose (74-99) mg/dL POC Glucose (mg/dL) 195 H 246 H (75-99) mg/dL Total Protein (6.3-8.2) g/dL Lipase (23-300) U/L Urine Bacteria Moderate H (None) /hpf 02/04/19 02/04/19 02/04/19 Range/Units 02:14 07:10 09:24 RBC 3.29 L (4.30-5.90) m/uL Hgb 11.0 L (13.0-17.5) gm/dL Hct 32.0 L (39.0-53.0) % Sodium (137-145) mmol/L Glucose (74-99) mg/dL POC Glucose (mg/dL) 142 H 176 H (75-99) mg/dL Total Protein (6.3-8.2) g/dL Lipase (23-300) U/L Urine Bacteria (None) /hpf 02/04/19 02/04/19 Range/Units 09:24 11:56 RBC (4.30-5.90) m/uL Hgb (13.0-17.5) gm/dL Hct (39.0-53.0) % Sodium 136 L (137-145) mmol/L Glucose 200 H (74-99) mg/dL POC Glucose (mg/dL) 178 H (75-99) mg/dL Total Protein 6.2 L (6.3-8.2) g/dL Lipase 472 H (23-300) U/L Urine Bacteria (None) /hpf Microbiology - Last 24 Hours (Table) 02/03/19 00:19 Urine Culture - Final Urine,Voided 02/02/19 01:34 Blood Culture - Preliminary Blood No Growth after 48 hours
[2019-02-04 12:03] LABS: Glucose,Whole Blood 178 mg/dL (75-99)
--- NOTE | 2019-02-04 22:38 | DS ---
DISCHARGE SUMMARY DATE OF SERVICE: 02/04/2019. FINAL DIAGNOSES: 1. Acute severe pancreatitis with possible sepsis, severe abdominal pain, present on admission, possibly secondary to alcoholic triglyceridemia. 2. History of alcohol intake. 3. Hypertriglyceridemia. 4. Hyperlipidemia. 5. Diabetes type 2, uncontrolled with hyperglycemia with no evidence of ketosis. 6. Hyponatremia. 7. Morbid obesity with body mass index of 44.3. 8. History of gastroesophageal reflux disease. 9. Hypertension. 10.Hyperlipidemia. 11.History of sleep apnea. 12.History of left lung mass. 13.History of degenerative joint disease. 14.Anxiety, depression. 15.Remote history of nicotine dependence. 16.Hypomagnesemia. 17.FULL CODE. DISCHARGE DISPOSITION: The patient is being discharged in stable condition with guarded prognosis. Total time taken: 35 minutes. HISTORY OF PRESENT ILLNESS: This 43-year-old gentleman with a past medical history of multiple medical problems, was admitted with acute severe pancreatitis with possible sepsis and abdominal pain. The patient was monitored closely. Patient was given IV antibiotics. Gastroenterology and multiple consultants saw the patient during the hospitalization. Care was coordinated. Patient improved significantly. On exam, vitals are stable. Cardiovascular: S1, S2. Abdomen soft. Nervous system: No focal deficits. The patient is being discharged in stable condition with guarded prognosis. Patient is extremely keen on going home and Surgery and Gastroenterology cleared the patient for discharge. MMODL / IJN: [id number] /
--- NOTE | 2019-02-04 22:41 | DS ---
DISCHARGE SUMMARY ADDENDUM TO DISCHARGE SUMMARY: DISCHARGE ADVICE AND MEDICATIONS: 1. Diet is low-fat, soft, low residual. 2. Activity limited until followup. 3. Lopid 600 mg p.o. b.i.d. 4. Multivitamins 1 p.o. daily. 5. Zestoretic 20/12.5 mg p.o. daily. 6. Aspirin 81 mg daily. Resume in 1 week. 7. Metformin 1000 mg p.o. b.i.d. Resume in 1 week. 8. Protonix 40 mg p.o. b.i.d. 9. Tylenol 650 q.6 p.r.n. 10.Accu-Cheks before meals and at bedtime. Results to Dr. Huynh. 11.Follow up with Dr. Huynh in 1-2 days. 12.Follow up with Gastroenterology in 1 week. 13.Follow up with Dr. Bradford as recommended. Once again, the patient will be discharged in stable condition with guarded prognosis. MMODL / IJN: [id number] /
== END 2019-02-04 13:32 | disposition home or self-care (01) | DRG 871 ==
LOC: EC 17:22 → 4SSUR 20:42 → 4MS4W 02-03 18:25
PROVIDERS: ADMIT Hospitalist; ATTEND Hospitalist
DX: A41.9 Sepsis, unspecified organism (principal); K85.20 Alcohol induced acute pancreatitis without necrosis or infection; Z68.41 Body mass index [BMI] 40.0-44.9, adult; E87.1 Hypo-osmolality and hyponatremia; K86.0 Alcohol-induced chronic pancreatitis; E11.65 Type 2 diabetes mellitus with hyperglycemia; E66.01 Morbid (severe) obesity due to excess calories; K76.0 Fatty (change of) liver, not elsewhere classified; E83.42 Hypomagnesemia; F10.20 Alcohol dependence, uncomplicated; K21.9 Gastro-esophageal reflux disease without esophagitis; E86.1 Hypovolemia; J30.2 Other seasonal allergic rhinitis; E78.5 Hyperlipidemia, unspecified; I10 Essential (primary) hypertension; E78.1 Pure hyperglyceridemia; G47.30 Sleep apnea, unspecified; M19.90 Unspecified osteoarthritis, unspecified site; Z79.82 Long term (current) use of aspirin; Z79.84 Long term (current) use of oral hypoglycemic drugs; Z79.899 Other long term (current) drug therapy; Z99.89 Dependence on other enabling machines and devices; Z71.3 Dietary counseling and surveillance; Z87.891 Personal history of nicotine dependence; Z85.110 Personal history of malignant carcinoid tumor of bronchus and lung; Z86.59 Personal history of other mental and behavioral disorders; Z90.2 Acquired absence of lung [part of]; Z91.011 Allergy to milk products; Z83.49 Family history of other endocrine, nutritional and metabolic diseases; Z82.49 Family history of ischemic heart disease and other diseases of the circulatory system
CPT/HCPCS: 36415; 71045; 74177; 76705; 80048; 80053; 80061; 81001; 81003; 82150; 82787; 83036; 83605; 83690; 83735; 84478; 85025; 85610; 86038; 87040; 87086; 93005; 96361; 96374; 96375; 99285

== ENCOUNTER → 2019-02-19 | Outpatient (CLI) | payer BC ==
[2019-02-19 08:27] LABS: HCT 36.6 % (39.0-53.0); HGB 12.8 gm/dL (13.0-17.5); MCH 32.8 pg (25.0-35.0); MCHC 34.9 g/dL (31.0-37.0); MCV 94.1 fL (80.0-100.0); Platelet Count 268 k/uL (150-450); RBC 3.89 m/uL (4.30-5.90); WBC 4.8 k/uL (3.8-10.6)
[2019-02-19 11:46] LABS: Hemoglobin A1C 8.9 % (4.0-6.0)
[2019-02-19 12:30] LABS: African American GFR (CKD) 107.1 (60.0-200.0); Albumin 5.3 g/dL (3.80-4.90); Albumin/Globulin Ratio 2.52 (1.60-3.17); Anion Gap 11.9 mmol/L (4.00-12.00); Calcium 10.6 mg/dL (8.7-10.3); Carbon Dioxide 24.1 mmol/L (21.6-31.8); Globulin 2.1 g/dL (1.6-3.3); LDL Cholesterol,Calculated 114.6 mg/dL (0.0-131.0); Potassium 3.9 mmol/L (3.5-5.5); Total Protein 7.4 g/dL (6.2-8.2); VLDL Calculation 59.4 mg/dL (5.00-40.00)
== END | disposition home or self-care (01) ==
LOC: LABWHC1 07:55
PROVIDERS: ATTEND Internal Medicine
DX: E78.5 Hyperlipidemia, unspecified (principal); E11.9 Type 2 diabetes mellitus without complications; K85.90 Acute pancreatitis without necrosis or infection, unspecified
CPT/HCPCS: 36415; 80053; 80061; 82150; 83036; 83690; 85027

== ENCOUNTER → 2020-06-29 | Outpatient (CLI) | payer BC ==
[2020-06-29 08:38] LABS: Basophils % (A) 1 %; Eosinophils # (A) 0.1 k/uL (0-0.7); Eosinophils % (A) 4 %; HCT 42.8 % (39.0-53.0); HGB 14.9 gm/dL (13.0-17.5); Lymphocytes # (A) 1.4 k/uL (1.0-4.8); Lymphocytes % (A) 38 %; MCH 33.9 pg (25.0-35.0); MCHC 34.8 g/dL (31.0-37.0); MCV 97.4 fL (80.0-100.0); Mean Platelet Volume 8.2; Monocytes # (A) 0.3 k/uL (0-1.0); Monocytes % (A) 8 %; Neutrophils # (A) 1.7 k/uL (1.3-7.7); Neutrophils % (A) 46 %; Platelet Count 167 k/uL (150-450); RBC 4.39 m/uL (4.30-5.90); WBC 3.6 k/uL (3.8-10.6)
[2020-06-29 16:05] LABS: ALT 78 U/L (10-49); AST 46 U/L (14-35); African American GFR (CKD) 85.3 (60.0-200.0); Albumin/Globulin Ratio 1.88 (1.60-3.17); Alkaline Phosphatase 62 U/L (41-126); Amylase 55 U/L (23-121); BUN/Creat Ratio 23.33 Ratio (12.00-20.00); Calcium 10.2 mg/dL (8.7-10.3); Carbon Dioxide 25.8 mmol/L (21.6-31.8); Chloride 95 mmol/L (96-109); Chol/HDL Ratio 10.21; Cholesterol 286 mg/dL (0-200); Globulin 2.6 g/dL (1.6-3.3); Glucose 166 mg/dL (70-110); Lipase 81 U/L (14-60); Non-African American GFR(CKD) 73.6 (60.0-200.0); Potassium 3.9 mmol/L (3.5-5.5); Sodium 134 mmol/L (135-145); Total Bilirubin 0.8 mg/dL (0.2-1.2); Total Protein 7.5 g/dL (6.2-8.2); Triglycerides >1100.0 mg/dL (0.0-149.0)
[2020-06-29 18:16] LABS: Hemoglobin A1C 8.1 % (4.0-6.0)
[2020-06-29 22:25] LABS: Urine Creatinine 81.4 mg/dL
== END | disposition home or self-care (01) ==
LOC: LABWHC1 07:44
PROVIDERS: ATTEND Internal Medicine
DX: R10.9 Unspecified abdominal pain (principal); I10 Essential (primary) hypertension; E11.9 Type 2 diabetes mellitus without complications; E78.2 Mixed hyperlipidemia
CPT/HCPCS: 36415; 80053; 80061; 82043; 82150; 82570; 83036; 83690; 83721; 85025

== ENCOUNTER → 2021-07-23 | Outpatient (CLI) | payer BC ==
[2021-07-23 11:13] LABS: Basophils # (A) 0.03 X 10*3/uL (0.00-0.10); Basophils % (A) 0.6 %; Eosinophils # (A) 0.25 X 10*3/uL (0.04-0.35); Eosinophils % (A) 5.2 %; HCT 41.5 % (39.6-50.0); HGB 14.5 g/dL (13.0-17.0); Lymphocytes % (A) 35.4 %; MCH 33.5 pg (27.0-32.0); MCHC 34.9 g/dL (32.0-37.0); MCV 95.8 fL (80.0-97.0); Mean Platelet Volume 11.8 fL (9.5-12.2); Monocytes # (A) 0.46 X 10*3/uL (0.20-1.00); Monocytes % (A) 9.6 %; Neutrophils # (A) 2.34 X 10*3/uL (1.80-7.70); Neutrophils % (A) 48.8 %; Platelet Count 142 X 10*3/uL (140-440); RBC 4.33 X 10*6/uL (4.40-5.60); RDW 12.2 % (11.5-14.5)
[2021-07-23 11:49] LABS: African American GFR (CKD) 103.6 (60.0-200.0); Albumin 4.7 g/dL (3.8-4.9); Albumin/Globulin Ratio 1.98 (1.60-3.17); Anion Gap 18.5 mmol/L (10.00-18.00); BUN/Creat Ratio 20.5 Ratio (12.00-20.00); Blood Urea Nitrogen 20.7 mg/dL (9.0-27.0); Calcium 9.8 mg/dL (8.7-10.3); Carbon Dioxide 22.5 mmol/L (20.0-27.5); Globulin 2.4 g/dL (1.6-3.3); Non-African American GFR(CKD) 89.4 (60.0-200.0); Total Bilirubin 0.9 mg/dL (0.30-1.20); Total Protein 7.1 g/dL (6.2-8.2)
[2021-07-23 12:13] LABS: Chol/HDL Ratio 7.29 Ratio; HDL Cholesterol 27.7 mg/dL (40.00-60.00)
[2021-07-23 14:05] LABS: LDL Cholesterol,Direct Reflex 57.8 mg/dL (0.00-129.00)
== END | disposition home or self-care (01) ==
LOC: LABWHC1 07:45
PROVIDERS: ATTEND Internal Medicine
DX: Z00.01 Encounter for general adult medical examination with abnormal findings (principal); I10 Essential (primary) hypertension; E11.9 Type 2 diabetes mellitus without complications; E78.00 Pure hypercholesterolemia, unspecified
CPT/HCPCS: 36415; 80053; 80061; 82043; 82570; 83036; 83721; 85025

== ENCOUNTER 2023-08-12 21:27 | Inpatient (IN) | payer BC ==
[2023-08-12 22:10] LABS: ALT 36 U/L (4-49); AST 31 U/L (17-59); African American GFR (CKD) >90 (>60 ml/min/1.73 sqM); Albumin 3.9 g/dL (3.5-5.0); Alkaline Phosphatase 85 U/L (38-126); Anion Gap 22 mmol/L; Blood Urea Nitrogen 12 mg/dL (9-20); Calcium 8.7 mg/dL (8.4-10.2); Carbon Dioxide 12 mmol/L (22-30); Chloride 96 mmol/L (98-107); Glucose 281 mg/dL (74-99); Lipase 815 U/L (23-300); Magnesium 1.1 mg/dL (1.6-2.3); Non-African American GFR(CKD) >90 (>60 ml/min/1.73 sqM); Potassium 4.2 mmol/L (3.5-5.1); Sodium 130 mmol/L (137-145); Total Bilirubin 1.5 mg/dL (0.2-1.3); Total Protein 7.5 g/dL (6.3-8.2)
[2023-08-12] MEDS ORDERED: SODIUM CHLORIDE 0.9% 1,000 ML IV ONE ×2 (22:12→23:24)
[2023-08-12] MEDS ORDERED: HYDROmorphone 1 MG/ML 1 ML SYRINGE IVP STA (22:12)
--- NOTE | 2023-08-12 22:13 | XR ---
EXAMINATION TYPE: XR chest 2V DATE OF EXAM: 08/12/2023 COMPARISON: 02/02/2019 INDICATION: Chest pain TECHNIQUE: Frontal and lateral views of the chest are obtained. FINDINGS: The heart size is normal. The pulmonary vasculature is normal. The lungs are clear. IMPRESSION: 1. No acute pulmonary process.
--- NOTE | 2023-08-12 22:14 | ED ---
General Adult HPI - General Chief complaint: Chest Pain Stated complaint: Chest Pain Time Seen by Provider: 08/12/23 21:43 Source: patient, EMS, RN notes reviewed, old records reviewed Mode of arrival: EMS Limitations: no limitations - History of Present Illness Initial comments: 48-year-old male presenting with epigastric and chest pain which began today. Patient has history of pancreatitis which she states were related to medication and triglyceride levels. Patient states his symptoms are similar to prior episodes but more severe. He does have pain into his lower chest as well. No dyspnea. No fever. - Related Data Home Medications Medication Instructions Recorded Confirmed Esomeprazole Magnesium [NexIUM 20 mg PO DAILY 08/12/23 08/12/23 24Hr] Losartan Potassium [Cozaar] 100 mg PO DAILY 08/12/23 08/12/23 Previous Rx's Medication Instructions Recorded Aspirin [Adult Low Dose Aspirin EC] 81 mg PO DAILY #1 02/04/19 metFORMIN HCL [Glucophage] 1,000 mg PO BID #1 02/04/19 Allergies Allergy/AdvReac Type Severity Reaction Status Date / Time No Known Allergies Allergy Verified 08/12/23 22:27 Review of Systems ROS Statement: Those systems with pertinent positive or pertinent negative responses have been documented in the HPI. ROS Other: All systems not noted in ROS Statement are negative. Past Medical History Past Medical History: Diabetes Mellitus, GERD/Reflux, Hyperlipidemia, Hypertension, Sleep Apnea/CPAP/BIPAP Additional Past Medical History / Comment(s): Left lung mass removed at [facility] Sep 2016. Seasonal allergies. History of Any Multi-Drug Resistant Organisms: None Reported Past Surgical History: Orthopedic Surgery Additional Past Surgical History / Comment(s): Rt Knee meniscus repair 2003 Past Anesthesia/Blood Transfusion Reactions: No Reported Reaction Past Psychological History: Anxiety, Depression Past Alcohol Use History: Occasional Past Drug Use History: None Reported - Past Family History Mother Family Medical History: Hyperlipidemia, Hypertension Brother(s) Family Medical History: No Reported History Sister(s) Family Medical History: No Reported History Father History Unknown: Yes General Exam Limitations: no limitations General appearance: alert, in distress Head exam: Present: atraumatic, normocephalic Eye exam: Present: normal appearance, PERRL ENT exam: Present: normal exam Neck exam: Present: normal inspection. Absent: tenderness, meningismus Respiratory exam: Present: normal lung sounds bilaterally. Absent: respiratory distress, wheezes Cardiovascular Exam: Present: regular rate, normal rhythm GI/Abdominal exam: Present: soft, tenderness. Absent: distended Neurological exam: Present: alert, oriented X3 Psychiatric exam: Present: normal affect, normal mood Skin exam: Present: warm, dry, intact Course Vital Signs 08/12/23 08/12/23 08/12/23 21:33 21:40 22:58 Temperature 98.7 F Pulse Rate 97 87 75 Respiratory 20 18 18 Rate Blood Pressure 183/108 157/93 146/95 O2 Sat by Pulse 95 98 97 Oximetry 08/13/23 00:54 Temperature Pulse Rate 82 Respiratory 16 Rate Blood Pressure 133/95 O2 Sat by Pulse 97 Oximetry Medical Decision Making - Medical Decision Making Was pt. sent in by a medical professional or institution (, PA, MILITARY PAY CLERK, urgent care, hospital, or [facility]...) When possible be specific @ -No Did you speak to anyone other than the patient for history (EMS, parent, family, police, friend...)? What history was obtained from this source @ -No Did you review nursing and triage notes (agree or disagree)? Why? @ -I reviewed and agree with nursing and triage notes Were old charts reviewed (outside hosp., previous admission, EMS record, old EKG, old radiological studies, urgent care reports/EKG's, [facility] records)? Report findings @ -No old charts were reviewed Differential Diagnosis (chest pain, altered mental status, abdominal pain women, abdominal pain men, vaginal bleeding, weakness, fever, dyspnea, syncope, headache, dizziness, GI bleed, back pain, seizure, CVA, palpatations, mental health, musculoskeletal)? @ -Differential Abdominal Pain Men: Appendicitis, cholecystitis, diverticulosis, ischemic bowel, pancreatitis, hepat itis, UTI, gastroenteritis, AAA, incarcerated hernia, bowel obstruction, constipation, inflammatory bowel, hepatitis, peptic ulcer disease, splenic infarction, perforated viscus, testicular torsion, this is not meant to be an all-inclusive list EKG interpreted by me (3pts min.). @ sinus tachycardia rate of 97 KS interval 164, QRS duration 118, QTC [address] segment elevation. X-rays interpreted by me (1pt min.). @ Chest x-ray negative for acute cardiopulmonary findings CT interpreted by me (1pt min.). @ -None done U/S interpreted by me (1pt. min.). @ -None done What testing was considered but not performed or refused? (CT, X-rays, U/S, labs)? Why? @ -None What meds were considered but not given or refused? Why? @ -None Did you discuss the management of the patient with other professionals (professionals i.e. Dr., PA, MILITARY PAY CLERK, lab, RT, psych nurse, forensic social worker, assistant auto center manager, teacher, combat information center officer, case checker)? Give summary @ -EMH Was smoking cessation discussed for >3mins.? @ -No Was critical care preformed (if so, how long)? @ -No Were there social determinants of health that impacted care today? How? (Homelessness, low income, unemployed, alcoholism, drug addiction, transportation, low edu. Level, literacy, decrease access to med. care, halfway, rehab)? @ -No Was there de-escalation of care discussed even if they declined (Discuss DNR or withdrawal of care, Hospice)? DNR status @ -No What co-morbidities impacted this encounter? (DM, HTN, Smoking, COPD, CAD, Cancer, CVA, ARF, Chemo, Hep., AIDS, mental health diagnosis, sleep apnea, morbid obesity)? @ -[Diabetes Was patient admitted / discharged? Hospital course, mention meds given and route, prescriptions, significant lab abnormalities, going to OR and other pertinent info. @ -[48-year-old presenting with epigastric abdominal pain, nausea vomiting, history of pancreatitis. Patient is a diabetic. Workup does reveal anion gap metabolic acidosis and elevated blood sugar. Patient is acetone positive consistent with diabetic ketoacidosis. He started on IV fluids and IV insulin. He also has a concurrent mild pancreatitis at 800. Patient will be admitted for treatment of both DKA and acute pancreatitis. Undiagnosed new problem with uncertain prognosis? @ -No Drug Therapy requiring intensive monitoring for toxicity (Heparin, Nitro, Insulin, Cardizem)? @ -No Were any procedures done? @ -No Diagnosis/symptom? @ -[DKA, pancreatitis Acute, or Chronic, or Acute on Chronic? @ -Acute Uncomplicated (without systemic symptoms) or Complicated (systemic symptoms)? @ -default Side effects of treatment? @ -No Exacerbation, Progression, or Severe Exacerbation? @ -No Poses a threat to life or bodily function? How? (Chest pain, USA, NH, pneumonia, PE, COPD, DKA, ARF, appy, cholecystitis, CVA, Diverticulitis, Homicidal, Suicidal, threat to staff... and all critical care pts) @ -[Yes, DKA - Lab Data Result diagrams: 08/12/23 21:45 08/12/23 23:29 Lab Results 08/12/23 08/12/23 08/12/23 Range/Units 21:45 21:45 21:45 WBC 12.3 H (3.8-10.6) k/uL RBC 4.24 L (4.30-5.90) m/uL Hgb 14.3 (13.0-17.5) gm/dL Hct 39.7 (39.0-53.0) % MCV 93.7 (80.0-100.0) fL MCH 33.5 (25.0-35.0) pg MCHC 35.9 (31.0-37.0) g/dL RDW 13.6 (11.5-15.5) % Plt Count 233 (150-450) k/uL MPV 8.7 Neutrophils % 79 % Lymphocytes % 13 % Monocytes % 5 % Eosinophils % 1 % Basophils % 1 % Neutrophils # 9.7 H (1.3-7.7) k/uL Lymphocytes # 1.6 (1.0-4.8) k/uL Monocytes # 0.6 (0-1.0) k/uL Eosinophils # 0.2 (0-0.7) k/uL Basophils # 0.1 (0-0.2) k/uL Sodium 130 L (137-145) mmol/L Potassium 4.2 (3.5-5.1) mmol/L Chloride 96 L (98-107) mmol/L Carbon Dioxide 12 L (22-30) mmol/L Anion Gap 22 mmol/L BUN 12 (9-20) mg/dL Creatinine 0.91 (0.66-1.25) mg/dL Est GFR (CKD-EPI)AfAm >90 (>60 ml/min/1.73 sqM) Est GFR (CKD-EPI)NonAf >90 (>60 ml/min/1.73 sqM) Glucose 281 H (74-99) mg/dL Plasma Lactic Acid Ralf (0.7-2.0) mmol/L Calcium 8.7 (8.4-10.2) mg/dL Magnesium 1.1 L (1.6-2.3) mg/dL Total Bilirubin 1.5 H (0.2-1.3) mg/dL AST 31 (17-59) U/L ALT 36 (4-49) U/L Alkaline Phosphatase 85 (38-126) U/L Troponin I <0.012 (0.000-0.034) ng/mL Total Protein 7.5 (6.3-8.2) g/dL Albumin 3.9 (3.5-5.0) g/dL Lipase 815 H (23-300) U/L Acetone, Qual (Negative) 08/12/23 08/12/23 Range/Units 23:29 23:29 WBC (3.8-10.6) k/uL RBC (4.30-5.90) m/uL Hgb (13.0-17.5) gm/dL Hct (39.0-53.0) % MCV (80.0-100.0) fL MCH (25.0-35.0) pg MCHC (31.0-37.0) g/dL RDW (11.5-15.5) % Plt Count (150-450) k/uL MPV Neutrophils % % Lymphocytes % % Monocytes % % Eosinophils % % Basophils % % Neutrophils # (1.3-7.7) k/uL Lymphocytes # (1.0-4.8) k/uL Monocytes # (0-1.0) k/uL Eosinophils # (0-0.7) k/uL Basophils # (0-0.2) k/uL Sodium 130 L (137-145) mmol/L Potassium 4.1 (3.5-5.1) mmol/L Chloride 97 L (98-107) mmol/L Carbon Dioxide 13 L (22-30) mmol/L Anion Gap 20 mmol/L BUN 12 (9-20) mg/dL Creatinine 0.93 (0.66-1.25) mg/dL Est GFR (CKD-EPI)AfAm >90 (>60 ml/min/1.73 sqM) Est GFR (CKD-EPI)NonAf >90 (>60 ml/min/1.73 sqM) Glucose 274 H (74-99) mg/dL Plasma Lactic Acid Ralf 1.1 (0.7-2.0) mmol/L Calcium 8.4 (8.4-10.2) mg/dL Magnesium (1.6-2.3) mg/dL Total Bilirubin (0.2-1.3) mg/dL AST (17-59) U/L ALT (4-49) U/L Alkaline Phosphatase (38-126) U/L Troponin I (0.000-0.034) ng/mL Total Protein (6.3-8.2) g/dL Albumin (3.5-5.0) g/dL Lipase (23-300) U/L Acetone, Qual Positive (Negative) Critical Care Time Critical Care Time: Yes Total Critical Care Time: 35 Disposition Clinical Impression: Pancreatitis, DKA (diabetic ketoacidosis) Disposition: ADMITTED IP TO THIS [facility] Condition: Stable Is patient prescribed a controlled substance at d/c from ED?: No Referrals: Danette Huynh MD [Primary Care Provider] - 1-2 days Time of Disposition: 02:21
[2023-08-12 22:57] LABS: Basophils # (A) 0.1 k/uL (0-0.2); Basophils % (A) 1 %; Eosinophils # (A) 0.2 k/uL (0-0.7); Eosinophils % (A) 1 %; HCT 39.7 % (39.0-53.0); Lymphocytes # (A) 1.6 k/uL (1.0-4.8); Lymphocytes % (A) 13 %; MCV 93.7 fL (80.0-100.0); Mean Platelet Volume 8.7; Monocytes # (A) 0.6 k/uL (0-1.0); Monocytes % (A) 5 %; Neutrophils # (A) 9.7 k/uL (1.3-7.7); Neutrophils % (A) 79 %; Platelet Count 233 k/uL (150-450); RBC 4.24 m/uL (4.30-5.90); RDW 13.6 % (11.5-15.5); WBC 12.3 k/uL (3.8-10.6)
[2023-08-12] MEDS: MAGNESIUM SULFATE-D5W PMX 1 GM in DEXTROSE/WATER 1 100ML.BAG IVPB SCH (23:34)
[2023-08-12 23:42] LABS: HGB 14.3 gm/dL (13.0-17.5); MCH 33.5 pg (25.0-35.0)
[2023-08-12 23:43] LABS: MCHC 35.9 g/dL (31.0-37.0)
[2023-08-12 23:55] LABS: African American GFR (CKD) >90 (>60 ml/min/1.73 sqM); Anion Gap 20 mmol/L; Blood Urea Nitrogen 12 mg/dL (9-20); Calcium 8.4 mg/dL (8.4-10.2); Carbon Dioxide 13 mmol/L (22-30); Chloride 97 mmol/L (98-107); Glucose 274 mg/dL (74-99); Non-African American GFR(CKD) >90 (>60 ml/min/1.73 sqM); Potassium 4.1 mmol/L (3.5-5.1); Sodium 130 mmol/L (137-145)
[2023-08-13] MEDS: MAGNESIUM SULFATE-D5W PMX 1 GM in DEXTROSE/WATER 1 100ML.BAG IVPB SCH ×4 (00:34→19:39)
[2023-08-13 01:27] LABS: Appearance,Urine Clear (Clear); Bilirubin,Urine Negative (Negative); Blood,Urine Large (Negative); Color,Urine Light Yellow; Glucose,Urine (UA) 4+ (Negative); Hyaline Casts,Urine 3 /lpf (0-2); Leukocyte Esterase,Urine Negative (Negative); Mucus,Urine Rare /hpf; Nitrite,Urine Negative (Negative); Protein,Urine 3+ (Negative); RBC,Urine 57 /hpf (0-5); Specific Gravity,Urine 1.041 (1.001-1.035); Urobilinogen,Urine <2.0 mg/dL (<2.0); WBC,Urine 1 /hpf (0-5)
[2023-08-13] MEDS ORDERED: HYDROmorphone 1 MG/ML 1 ML SYRINGE IVP STA (02:16)
[2023-08-13] MEDS ORDERED: LORazepam 2 MG/ML INJ IV PRN ×3 (02:21)
[2023-08-13] MEDS ORDERED: THIAMINE 100 MG/ML 2 ML VIAL IM STA (02:21)
[2023-08-13 02:44] LABS: Glucose,Whole Blood 294 mg/dL (70-110)
[2023-08-13] MEDS: SODIUM CHLORIDE 0.9% 1,000 ML IV SCH ×4 (02:49→22:48)
[2023-08-13] MEDS: D5-0.45% NACL WITH KCL 20MEQ/L 1,000 ML IV SCH ×3 (03:06→22:41)
[2023-08-13] MEDS: INSULIN REGULAR 100 UNIT in SODIUM CHLORIDE 0.9% 100 ML IV SCH ×4 (03:06→21:03)
[2023-08-13 03:46] LABS: Ketones,Urine 2+ (Negative)
[2023-08-13 04:03] LABS: Glucose,Whole Blood 300 mg/dL (70-110)
[2023-08-13 04:59] LABS: African American GFR (CKD) >90 (>60 ml/min/1.73 sqM); Anion Gap 16 mmol/L; Blood Urea Nitrogen 10 mg/dL (9-20); Carbon Dioxide 14 mmol/L (22-30); Chloride 99 mmol/L (98-107); Glucose 243 mg/dL (74-99); Non-African American GFR(CKD) >90 (>60 ml/min/1.73 sqM); Potassium 3.6 mmol/L (3.5-5.1); Sodium 129 mmol/L (137-145)
[2023-08-13 05:05] LABS: Glucose,Whole Blood 268 mg/dL (70-110)
[2023-08-13 06:07] LABS: Glucose,Whole Blood 249 mg/dL (70-110)
[2023-08-13] MEDS: HYDROmorphone 0.5 MG/0.5 ML SYRINGE IVP PRN ×5 (06:12→21:58)
[2023-08-13 06:59] LABS: Glucose,Whole Blood 239 mg/dL (70-110)
[2023-08-13 08:08] LABS: Glucose,Whole Blood 229 mg/dL (70-110)
[2023-08-13 08:40] LABS: African American GFR (CKD) >90 (>60 ml/min/1.73 sqM); Anion Gap 16 mmol/L; Blood Urea Nitrogen 10 mg/dL (9-20); Carbon Dioxide 17 mmol/L (22-30); Chloride 100 mmol/L (98-107); Glucose 206 mg/dL (74-99); Non-African American GFR(CKD) >90 (>60 ml/min/1.73 sqM); Sodium 133 mmol/L (137-145)
[2023-08-13 09:54] LABS: Glucose,Whole Blood 230 mg/dL (70-110)
[2023-08-13] MEDS: LOSARTAN 50 MG TAB PO SCH (10:23)
[2023-08-13] MEDS: PANTOPRAZOLE 40 MG TABLET PO SCH (10:23)
[2023-08-13 11:19] LABS: Glucose,Whole Blood 249 mg/dL (70-110)
[2023-08-13 12:21] LABS: African American GFR (CKD) >90 (>60 ml/min/1.73 sqM); Anion Gap 16 mmol/L; Blood Urea Nitrogen 10 mg/dL (9-20); Calcium 8.3 mg/dL (8.4-10.2); Carbon Dioxide 16 mmol/L (22-30); Chloride 100 mmol/L (98-107); Glucose 219 mg/dL (74-99); Non-African American GFR(CKD) >90 (>60 ml/min/1.73 sqM); Potassium 3.9 mmol/L (3.5-5.1); Sodium 132 mmol/L (137-145)
--- NOTE | 2023-08-13 12:46 | P.HPIM ---
History of Present Illness H&P Date: 08/13/23 History of present illness; patient is a 48-year-old gentleman with past medical history significant for tendinitis, diabetes mellitus brought to the ER because of abdominal pain. Patient stated he was all right this morning when he started noticing abdominal pain that started in the epigastric area. Pain was intermittent, very severe, radiating to the back. There was complaining of nausea and vomiting. Patient denies any fever or chills. Patient history of prior pancreatitis and this pain was at similar to it. There was no complain of any altered bowel movements. There was no complain of fever or chills. There was no complain of orthopnea or PND. denied any chest pain. Because of this epigastric pain, patient came to the ER Initial lab work done in the ER showed WBC 12.3, hemoglobin 14.3, platelet count 33, sodium 1:30, potassium 4.2, BUN 12, creatinine 0.91, magnesium 1.1 lipase 815 EKG done in the ER showed heart rate of [address] segment elevation or depression seen, no T-wave inversions seen. Chest x-ray done in the ER showed no acute cardiopulmonary process Patient admitted to internal medicine service REVIEW OF SYSTEMS: CONSTITUTIONAL: No fever, no malaise, no fatigue. HEENT: No recent visual problems or hearing problems. Denied any sore throat. CARDIOVASCULAR: As mentioned in HPI PULMONARY: No shortness of breath, no cough, no hemoptysis. GASTROINTESTINAL: As mentioned in HPI NEUROLOGICAL: No headaches, no weakness, no numbness. HEMATOLOGICAL: Denies any bleeding or petechiae. GENITOURINARY: Denies any burning micturition, frequency, or urgency. MUSCULOSKELETAL/RHEUMATOLOGICAL: Denies any joint pain, swelling, or any muscle pain. ENDOCRINE: Denies any polyuria or polydipsia. The rest of the 14-point review of systems is negative. PHYSICAL EXAMINATION: GENERAL: The patient is alert and oriented x3, not in any acute distress. Well developed, well nourished. HEENT: Pupils are round and equally reacting to light. EOMI. No scleral icterus. No conjunctival pallor. Normocephalic, atraumatic. No pharyngeal erythema. No thyromegaly. CARDIOVASCULAR: S1 and S2 present. No murmurs, rubs, or gallops. PULMONARY: Chest is clear to auscultation, no wheezing or crackles. ABDOMEN: Soft, tenderness in right upper quadrant, normoactive bowel sounds. No palpable organomegaly. MUSCULOSKELETAL: No joint swelling or deformity. EXTREMITIES: No cyanosis, clubbing, or pedal edema. NEUROLOGICAL: Gross neurological examination did not reveal any focal deficits. SKIN: No rashes. Assessment and plan DKA Acute pancreatitis Hyponatremia Hypomagnesemia Hyperlipidemia Hypertension Monitor vital signs Monitor CBC Monitor CMP Continue telemetry monitoring Ordered lipid panel Ordered HbA1c levels Continue patient on DKA protocol Continue to monitor serial electrolytes every 4 hourly Continue insulin drip Once blood sugar less than 250, switch to D5 half normal saline Once anion gap closes, we'll start subcu insulin and stop the drip after 30 minutes Resume home meds Labs and medication were reviewed.. Continue same treatment. Continue with symptomatic treatment. Resume home medication. Monitor labs and vitals. DVT and GI prophylaxis. Further recommendations as per clinical course of the patient Dictation was produced using [employer] dictation software. please excuse any grammatical, word or spelling errors. Past Medical History Past Medical History: Diabetes Mellitus, GERD/Reflux, Hyperlipidemia, Hypertension, Sleep Apnea/CPAP/BIPAP Additional Past Medical History / Comment(s): Left lung mass removed at [facility] Sep 2016. Seasonal allergies. History of Any Multi-Drug Resistant Organisms: None Reported Past Surgical History: Orthopedic Surgery Additional Past Surgical History / Comment(s): Rt Knee meniscus repair 2003 Past Anesthesia/Blood Transfusion Reactions: No Reported Reaction Past Psychological History: Anxiety, Depression Past Alcohol Use History: Occasional Past Drug Use History: None Reported - Past Family History Mother Family Medical History: Hyperlipidemia, Hypertension Brother(s) Family Medical History: No Reported History Sister(s) Family Medical History: No Reported History Father History Unknown: Yes Medications and Allergies Home Medications Medication Instructions Recorded Confirmed Type Aspirin [Adult Low Dose Aspirin EC] 81 mg PO DAILY #1 02/04/19 08/12/23 Rx metFORMIN HCL [Glucophage] 1,000 mg PO BID #1 02/04/19 08/12/23 Rx Esomeprazole Magnesium [NexIUM 20 mg PO DAILY 08/12/23 08/12/23 History 24Hr] Losartan Potassium [Cozaar] 100 mg PO DAILY 08/12/23 08/12/23 History Allergies Allergy/AdvReac Type Severity Reaction Status Date / Time No Known Allergies Allergy Verified 08/12/23 22:27 Physical Exam Vitals: Vital Signs Temp Pulse Resp BP Pulse Ox 08/13/23 08:09 101 H 18 171/96 98 08/13/23 06:10 98.4 F 82 18 174/86 96 08/13/23 02:34 82 18 149/82 97 08/13/23 00:54 82 16 133/95 97 08/12/23 22:58 75 18 146/95 97 08/12/23 21:40 87 18 157/93 98 08/12/23 21:33 98.7 F 97 20 183/108 95 Intake and Output 08/12/23 08/13/23 08/13/23 22:59 06:59 14:59 Intake Total 31.534 Balance 31.534 Intake: Intake, IV Titration 31.534 Amount Insulin Regular 100 unit 31.534 In Sodium Chloride 0.9% 100 ml @ 0.1 UNITS/KG/HR 16.034 mls/hr IV .Q6H18M [facility] Rx#:[id number] Other: Weight 158.757 kg Results CBC & Chem 7: 08/12/23 21:45 08/13/23 11:52 Labs: Abnormal Lab Results - Last 24 Hours (Table) 08/12/23 08/12/23 08/12/23 Range/Units 21:45 21:45 23:29 WBC 12.3 H (3.8-10.6) k/uL RBC 4.24 L (4.30-5.90) m/uL Neutrophils # 9.7 H (1.3-7.7) k/uL Sodium 130 L 130 L (137-145) mmol/L Chloride 96 L 97 L (98-107) mmol/L Carbon Dioxide 12 L 13 L (22-30) mmol/L Glucose 281 H 274 H (74-99) mg/dL POC Glucose (mg/dL) (70-110) mg/dL Magnesium 1.1 L (1.6-2.3) mg/dL Total Bilirubin 1.5 H (0.2-1.3) mg/dL Lipase 815 H (23-300) U/L Ur Specific [place] (1.001-1.035) Urine Protein (Negative) Urine Glucose (UA) (Negative) Urine Ketones (Negative) Urine Blood (Negative) Urine RBC (0-5) /hpf Hyaline Casts (0-2) /lpf Urine Mucus (None) /hpf 08/12/23 08/13/23 08/13/23 Range/Units 23:50 02:43 04:02 WBC (3.8-10.6) k/uL RBC (4.30-5.90) m/uL Neutrophils # (1.3-7.7) k/uL Sodium (137-145) mmol/L Chloride (98-107) mmol/L Carbon Dioxide (22-30) mmol/L Glucose (74-99) mg/dL POC Glucose (mg/dL) 294 H 300 H (70-110) mg/dL Magnesium (1.6-2.3) mg/dL Total Bilirubin (0.2-1.3) mg/dL Lipase (23-300) U/L Ur Specific [place] 1.041 H (1.001-1.035) Urine Protein 3+ H (Negative) Urine Glucose (UA) 4+ H (Negative) Urine Ketones 2+ H (Negative) Urine Blood Large H (Negative) Urine RBC 57 H (0-5) /hpf Hyaline Casts 3 H (0-2) /lpf Urine Mucus Rare H (None) /hpf 08/13/23 08/13/23 08/13/23 Range/Units 04:26 05:03 06:05 WBC (3.8-10.6) k/uL RBC (4.30-5.90) m/uL Neutrophils # (1.3-7.7) k/uL Sodium 129 L (137-145) mmol/L Chloride (98-107) mmol/L Carbon Dioxide 14 L (22-30) mmol/L Glucose 243 H (74-99) mg/dL POC Glucose (mg/dL) 268 H 249 H (70-110) mg/dL Magnesium (1.6-2.3) mg/dL Total Bilirubin (0.2-1.3) mg/dL Lipase (23-300) U/L Ur Specific [place] (1.001-1.035) Urine Protein (Negative) Urine Glucose (UA) (Negative) Urine Ketones (Negative) Urine Blood (Negative) Urine RBC (0-5) /hpf Hyaline Casts (0-2) /lpf Urine Mucus (None) /hpf 08/13/23 08/13/23 08/13/23 Range/Units 06:58 08:06 08:08 WBC (3.8-10.6) k/uL RBC (4.30-5.90) m/uL Neutrophils # (1.3-7.7) k/uL Sodium 133 L (137-145) mmol/L Chloride (98-107) mmol/L Carbon Dioxide 17 L (22-30) mmol/L Glucose 206 H (74-99) mg/dL POC Glucose (mg/dL) 239 H 229 H (70-110) mg/dL Magnesium (1.6-2.3) mg/dL Total Bilirubin (0.2-1.3) mg/dL Lipase (23-300) U/L Ur Specific [place] (1.001-1.035) Urine Protein (Negative) Urine Glucose (UA) (Negative) Urine Ketones (Negative) Urine Blood (Negative) Urine RBC (0-5) /hpf Hyaline Casts (0-2) /lpf Urine Mucus (None) /hpf
[2023-08-13 12:54] LABS: Glucose,Whole Blood 221 mg/dL (70-110)
[2023-08-13 14:26] LABS: Glucose,Whole Blood 255 mg/dL (70-110)
[2023-08-13 14:55] LABS: African American GFR (CKD) >90 (>60 ml/min/1.73 sqM); Anion Gap 16 mmol/L; Blood Urea Nitrogen 9 mg/dL (9-20); Calcium 8.5 mg/dL (8.4-10.2); Carbon Dioxide 15 mmol/L (22-30); Chloride 102 mmol/L (98-107); Glucose 207 mg/dL (74-99); Non-African American GFR(CKD) >90 (>60 ml/min/1.73 sqM); Sodium 133 mmol/L (137-145)
[2023-08-13 15:35] LABS: Glucose,Whole Blood 237 mg/dL (70-110)
[2023-08-13 16:56] LABS: Glucose,Whole Blood 189 mg/dL (70-110)
[2023-08-13 18:25] LABS: Chol/HDL Ratio 64.67 Ratio
[2023-08-13 18:33] LABS: Glucose,Whole Blood 156 mg/dL (70-110)
[2023-08-13 18:36] LABS: Triglycerides >4425.00 mg/dL (0.00-149.00); VLDL Calculation >885.00 mg/dL (5.00-40.00)
[2023-08-13 19:36] LABS: Glucose,Whole Blood 180 mg/dL (70-110)
[2023-08-13 20:28] LABS: African American GFR (CKD) >90 (>60 ml/min/1.73 sqM); Anion Gap 13 mmol/L; Blood Urea Nitrogen 10 mg/dL (9-20); Calcium 8.7 mg/dL (8.4-10.2); Carbon Dioxide 19 mmol/L (22-30); Chloride 102 mmol/L (98-107); Glucose 139 mg/dL (74-99); Non-African American GFR(CKD) >90 (>60 ml/min/1.73 sqM); Sodium 134 mmol/L (137-145)
[2023-08-13 20:29] LABS: Potassium 3.9 mmol/L (3.5-5.1)
[2023-08-13 20:40] LABS: Glucose,Whole Blood 148 mg/dL (70-110)
--- NOTE | 2023-08-13 21:25 | CT ---
EXAMINATION TYPE: CT abdomen wo con CT DLP: 1588 mGycm, Automated exposure control for dose reduction was used. DATE OF EXAM: 08/13/2023 9:16 PM COMPARISON: CT abdomen 02/01/2019. CLINICAL INDICATION:Male, 48 years old with history of abdominal pain, fever; right sided abdominal p ain, fever TECHNIQUE: Axial CT of the abdomen . Sagittal and coronal reformats were created on a separate works tation. Contrast used: (none if empty) Oral contrast used: without Oral Contrast (none if empty) FINDINGS: LOWER CHEST: Unremarkable ABDOMEN LIVER: The liver is diffusely hypoattenuating and enlarged measuring 28.7 cm. GALLBLADDER AND BILE DUCTS: Unremarkable. PANCREAS: The pancreatic tail is prominent in size. There is surrounding peripancreatic inflammatory changes. No large fluid collections are appreciated. Of note, lack of IV contrast does limit evaluati on of pancreatic parenchymal enhancement. SPLEEN: Enlarged measuring up to 15.1 cm in length. ADRENAL GLANDS: Unremarkable. KIDNEYS AND URETERS: No evidence of hydronephrosis. 3 mm nonobstructing left inferior pole renal calc ulus present. BOWEL: No evidence of bowel obstruction. PERITONEUM/RETROPERITONEUM: No evidence of pneumoperitoneum or free fluid. VASCULATURE: No evidence of aortic aneurysm. MUSCULOSKELETAL: No acute osseous abnormalities. Moderate disc degeneration changes are present throu ghout the thoracolumbar spine. LYMPH NODES: Prominent gastrohepatic lymph nodes are identified, likely reactive. SOFT TISSUE/ABDOMINAL WALL: Unremarkable IMPRESSION: 1. Findings most consistent with acute pancreatitis. 2. Hepatosplenomegaly.
[2023-08-13] MEDS: ACETAMINOPHEN TAB 500 MG TAB PO PRN (21:34)
[2023-08-13 21:42] LABS: Glucose,Whole Blood 156 mg/dL (70-110)
[2023-08-13 22:50] LABS: Glucose,Whole Blood 183 mg/dL (70-110)
[2023-08-14] LABS: Glucose,Whole Blood 177 mg/dL (70-110)
[2023-08-14] MEDS: PIPERACILLIN-TAZOBACTAM 3.375 GM in SODIUM CHLORIDE 0.9% 100 ML IVPB SCH ×3 (00:21→16:36)
[2023-08-14] MEDS: D5-0.45% NACL WITH KCL 20MEQ/L 1,000 ML IV SCH ×4 (00:22→15:48)
[2023-08-14 01:02] LABS: Glucose,Whole Blood 169 mg/dL (70-110)
[2023-08-14] MEDS: HYDROmorphone 0.5 MG/0.5 ML SYRINGE IVP PRN ×3 (01:17→08:00)
[2023-08-14 02:04] LABS: Glucose,Whole Blood 177 mg/dL (70-110)
[2023-08-14 03:05] LABS: Glucose,Whole Blood 164 mg/dL (70-110)
[2023-08-14] MEDS: INSULIN REGULAR 100 UNIT in SODIUM CHLORIDE 0.9% 100 ML IV SCH ×2 (04:31→13:15)
[2023-08-14] MEDS: SODIUM CHLORIDE 0.9% 1,000 ML IV SCH ×4 (04:31→20:11)
[2023-08-14 04:40] LABS: ALT 25 U/L (4-49); AST 28 U/L (17-59); African American GFR (CKD) >90 (>60 ml/min/1.73 sqM); Albumin 3.6 g/dL (3.5-5.0); Alkaline Phosphatase 67 U/L (38-126); Anion Gap 11 mmol/L; Blood Urea Nitrogen 11 mg/dL (9-20); Calcium 8.3 mg/dL (8.4-10.2); Carbon Dioxide 19 mmol/L (22-30); Chloride 103 mmol/L (98-107); Glucose 180 mg/dL (74-99); Non-African American GFR(CKD) 78 (>60 ml/min/1.73 sqM); Potassium 3.7 mmol/L (3.5-5.1); Sodium 133 mmol/L (137-145); Total Bilirubin 1.4 mg/dL (0.2-1.3); Total Protein 6.5 g/dL (6.3-8.2)
[2023-08-14 05:03] LABS: Glucose,Whole Blood 211 mg/dL (70-110)
[2023-08-14 06:07] LABS: Glucose,Whole Blood 224 mg/dL (70-110)
[2023-08-14] MEDS: PANTOPRAZOLE 40 MG TABLET PO SCH (06:30)
[2023-08-14 07:06] LABS: Glucose,Whole Blood 187 mg/dL (70-110)
[2023-08-14 08:01] LABS: Glucose,Whole Blood 205 mg/dL (70-110)
[2023-08-14] MEDS: ASPIRIN 81 MG PO SCH (08:01)
[2023-08-14] MEDS: LOSARTAN 50 MG TAB PO SCH (08:02)
[2023-08-14] MEDS: THIAMINE 100 MG TAB PO SCH (08:02)
[2023-08-14 08:53] LABS: Basophils % (A) 0 %; Eosinophils # (A) 0.2 k/uL (0-0.7); Eosinophils % (A) 2 %; HCT 39.8 % (39.0-53.0); HGB 13.9 gm/dL (13.0-17.5); Lymphocytes # (A) 1.3 k/uL (1.0-4.8); Lymphocytes % (A) 14 %; MCH 33.3 pg (25.0-35.0); MCV 95.2 fL (80.0-100.0); Mean Platelet Volume 9.3; Monocytes # (A) 0.4 k/uL (0-1.0); Monocytes % (A) 4 %; Neutrophils # (A) 7.3 k/uL (1.3-7.7); Neutrophils % (A) 78 %; Platelet Count 182 k/uL (150-450); RBC 4.18 m/uL (4.30-5.90); RDW 13.9 % (11.5-15.5); WBC 9.3 k/uL (3.8-10.6)
[2023-08-14 09:00] LABS: Glucose,Whole Blood 205 mg/dL (70-110)
[2023-08-14 09:09] LABS: ALT 23 U/L (4-49); AST 27 U/L (17-59); African American GFR (CKD) >90 (>60 ml/min/1.73 sqM); Albumin 3.5 g/dL (3.5-5.0); Alkaline Phosphatase 69 U/L (38-126); Anion Gap 12 mmol/L; Blood Urea Nitrogen 12 mg/dL (9-20); Calcium 8.2 mg/dL (8.4-10.2); Carbon Dioxide 21 mmol/L (22-30); Chloride 102 mmol/L (98-107); Glucose 190 mg/dL (74-99); Non-African American GFR(CKD) 79 (>60 ml/min/1.73 sqM); Potassium 3.8 mmol/L (3.5-5.1); Sodium 135 mmol/L (137-145); Total Bilirubin 1.2 mg/dL (0.2-1.3); Total Protein 6.5 g/dL (6.3-8.2)
[2023-08-14 10:06] LABS: Glucose,Whole Blood 212 mg/dL (70-110)
[2023-08-14] MEDS ORDERED: DEXTROSE 50% SYRINGE 50 ML IVP PRN ×2 (10:42)
[2023-08-14] MEDS ORDERED: INSULIN DETEMIR (LEVEMIR) 100 UNIT/ML SYR SQ ONE (10:47)
[2023-08-14 11:11] LABS: Glucose,Whole Blood 213 mg/dL (70-110)
[2023-08-14 11:40] LABS: African American GFR (CKD) >90 (>60 ml/min/1.73 sqM); Amylase 151 U/L (30-110); Anion Gap 11 mmol/L; Blood Urea Nitrogen 12 mg/dL (9-20); Calcium 8.1 mg/dL (8.4-10.2); Carbon Dioxide 20 mmol/L (22-30); Chloride 104 mmol/L (98-107); Glucose 204 mg/dL (74-99); Lipase 789 U/L (23-300); Non-African American GFR(CKD) 78 (>60 ml/min/1.73 sqM); Potassium 3.8 mmol/L (3.5-5.1); Sodium 135 mmol/L (137-145)
[2023-08-14] MEDS: INSULIN DETEMIR (LEVEMIR) 100 UNIT/ML SYR SQ SCH ×2 (11:45→21:31)
[2023-08-14] MEDS: ATORVASTATIN 80 MG TAB PO SCH (11:53)
[2023-08-14] MEDS: HYDROcodone/APAP 10-325MG 1 EACH TAB PO PRN ×2 (11:53→20:13)
[2023-08-14] MEDS: EZETIMIBE 10 MG TAB PO SCH (11:54)
[2023-08-14 12:49] LABS: Glucose,Whole Blood 218 mg/dL (70-110)
[2023-08-14] MEDS: INSULIN ASPART (NovoLOG) 100 UNIT/ML VIAL SQ SCH ×3 (13:03→21:32)
--- NOTE | 2023-08-14 13:03 | P.PN ---
Subjective Progress Note Date: 08/14/23 patient is a 48-year-old gentleman with past medical history significant for tendinitis, diabetes mellitus brought to the ER because of abdominal pain. Patient stated he was all right this morning when he started noticing abdominal pain that started in the epigastric area. Pain was intermittent, very severe, radiating to the back. There was complaining of nausea and vomiting. Patient denies any fever or chills. Patient history of prior pancreatitis and this pain was at similar to it. There was no complain of any altered bowel movements. There was no complain of fever or chills. There was no complain of orthopnea or PND. denied any chest pain. Because of this epigastric pain, patient came to the ER Initial lab work done in the ER showed WBC 12.3, hemoglobin 14.3, platelet count 33, sodium 1:30, potassium 4.2, BUN 12, creatinine 0.91, magnesium 1.1 lipase 815 EKG done in the ER showed heart rate of [address] segment elevation or depression seen, no T-wave inversions seen. Chest x-ray done in the ER showed no acute cardiopulmonary process Patient admitted to internal medicine service 08/14/23. Patient seen and examined. Patient states his abdominal pain has improved compared to yesterday. Still requiring pain medications. Complaining of nausea but no vomiting. Discussed with him regarding his cholesterol and high triglyceride level results, explained to him that he needs to be started on statins. Will order repeat lipid panel in the morning. REVIEW OF SYSTEMS: CONSTITUTIONAL: No fever, no malaise,. CARDIOVASCULAR: No chest pain, no palpitations, no syncope. PULMONARY: No shortness of breath, no cough, GASTROINTESTINAL: As mentioned in HPI NEUROLOGICAL: No headaches, no weakness, PHYSICAL EXAMINATION: GENERAL: The patient is alert and oriented x3, not in any acute distress. Well developed, well nourished. HEENT: Pupils are round and equally reacting to light. EOMI. No scleral icterus. No conjunctival pallor. Normocephalic, atraumatic. No pharyngeal erythema. No thyromegaly. CARDIOVASCULAR: S1 and S2 present. No murmurs, rubs, or gallops. PULMONARY: Chest is clear to auscultation, no wheezing or crackles. ABDOMEN: Soft, nontender, nondistended, normoactive bowel sounds. No palpable organomegaly. MUSCULOSKELETAL: No joint swelling or deformity. EXTREMITIES: No cyanosis, clubbing, or pedal edema. NEUROLOGICAL: Gross neurological examination did not reveal any focal deficits. SKIN: No rashes. Assessment and plan DKA Acute pancreatitis Hypertriglyceridemia Hyponatremia Hypomagnesemia Hyperlipidemia Hypertension Monitor vital signs Monitor CBC Monitor CMP Continue telemetry monitoring lipid panel done showed triglyceride level more than 4425, total cholesterol 776,vlDL 885 HbA1c levels was 10 Anion gap closed, start Levemir 10 units twice a day and sliding scale insulin, close insulin drip Continue D5 half normal saline Start Lipitor Currently on clear liquid diet Pancreatitis most likely secondary to elevated triglyceride and cholesterol levels. Discussed with patient in detail regarding the need for him to strictly control his cholesterol. We will order repeat lipid panel and lipase level in the morning, if improving and patient's clinical condition remains satisfactory he will be monitored here otherwise will need to be transferred for evaluation with GI and plasmapheresis Labs and medication were reviewed.. Continue same treatment. Continue with symptomatic treatment. Resume home medication. Monitor labs and vitals. DVT and GI prophylaxis. Further recommendations as per clinical course of the patient Dictation was produced using [employer] dictation software. please excuse any grammatical, word or spelling errors. Objective - Vital Signs Vital signs: Vital Signs Temp 98.3 F 08/14/23 07:57 Pulse 86 08/14/23 07:57 Resp 18 08/14/23 07:57 BP 130/85 08/14/23 07:57 Pulse Ox 97 08/14/23 07:57 FiO2 Intake & Output 08/13/23 08/14/23 08/14/23 18:59 06:59 18:59 Intake Total 167.297 171.982 57.931 Output Total 400 Balance -232.703 171.982 57.931 Weight 158.757 kg Intake: Intake, IV Titration 167.297 171.982 57.931 Amount Insulin Regular 100 unit 167.297 171.982 57.931 In Sodium Chloride 0.9% 100 ml @ 0.1 UNITS/KG/HR 16.034 mls/hr IV .[id number] AMAURY Rx#:[id number] Output: Urine 400 Other: Voiding Method Toilet Toilet # Voids 1 - Labs CBC & Chem 7: 08/14/23 07:21 08/14/23 11:06 Labs: Abnormal Lab Results - Last 24 Hours (Table) 08/13/23 08/13/23 08/13/23 Range/Units 08:08 11:18 11:52 RBC (4.30-5.90) m/uL Sodium 133 L (137-145) mmol/L Carbon Dioxide 17 L (22-30) mmol/L Glucose 206 H (74-99) mg/dL POC Glucose (mg/dL) 249 H (70-110) mg/dL Hemoglobin A1c 10.0 H (<=6.0) % Calcium (8.4-10.2) mg/dL Total Bilirubin (0.2-1.3) mg/dL Triglycerides >4425.00 H (0.00-149.00) mg/dL Cholesterol 776.00 H (0.00-200.00) mg/dL VLDL Cholesterol, Calc >885.00 H (5.00-40.00) mg/dL HDL Cholesterol 12.00 L (40.00-60.00) mg/dL 08/13/23 08/13/23 08/13/23 Range/Units 11:52 12:53 14:21 RBC (4.30-5.90) m/uL Sodium 132 L (137-145) mmol/L Carbon Dioxide 16 L (22-30) mmol/L Glucose 219 H (74-99) mg/dL POC Glucose (mg/dL) 221 H 255 H (70-110) mg/dL Hemoglobin A1c (<=6.0) % Calcium 8.3 L (8.4-10.2) mg/dL Total Bilirubin (0.2-1.3) mg/dL Triglycerides (0.00-149.00) mg/dL Cholesterol (0.00-200.00) mg/dL VLDL Cholesterol, Calc (5.00-40.00) mg/dL HDL Cholesterol (40.00-60.00) mg/dL 08/13/23 08/13/23 08/13/23 Range/Units 14:27 15:33 16:54 RBC (4.30-5.90) m/uL Sodium 133 L (137-145) mmol/L Carbon Dioxide 15 L (22-30) mmol/L Glucose 207 H (74-99) mg/dL POC Glucose (mg/dL) 237 H 189 H (70-110) mg/dL Hemoglobin A1c (<=6.0) % Calcium (8.4-10.2) mg/dL Total Bilirubin (0.2-1.3) mg/dL Triglycerides (0.00-149.00) mg/dL Cholesterol (0.00-200.00) mg/dL VLDL Cholesterol, Calc (5.00-40.00) mg/dL HDL Cholesterol (40.00-60.00) mg/dL 08/13/23 08/13/23 08/13/23 Range/Units 18:32 19:35 19:46 RBC (4.30-5.90) m/uL Sodium 134 L (137-145) mmol/L Carbon Dioxide 19 L (22-30) mmol/L Glucose 139 H (74-99) mg/dL POC Glucose (mg/dL) 156 H 180 H (70-110) mg/dL Hemoglobin A1c (<=6.0) % Calcium (8.4-10.2) mg/dL Total Bilirubin (0.2-1.3) mg/dL Triglycerides (0.00-149.00) mg/dL Cholesterol (0.00-200.00) mg/dL VLDL Cholesterol, Calc (5.00-40.00) mg/dL HDL Cholesterol (40.00-60.00) mg/dL 08/13/23 08/13/23 08/13/23 Range/Units 20:38 21:37 22:45 RBC (4.30-5.90) m/uL Sodium (137-145) mmol/L Carbon Dioxide (22-30) mmol/L Glucose (74-99) mg/dL POC Glucose (mg/dL) 148 H 156 H 183 H (70-110) mg/dL Hemoglobin A1c (<=6.0) % Calcium (8.4-10.2) mg/dL Total Bilirubin (0.2-1.3) mg/dL Triglycerides (0.00-149.00) mg/dL Cholesterol (0.00-200.00) mg/dL VLDL Cholesterol, Calc (5.00-40.00) mg/dL HDL Cholesterol (40.00-60.00) mg/dL 08/13/23 08/14/23 08/14/23 Range/Units 23:59 01:01 02:03 RBC (4.30-5.90) m/uL Sodium (137-145) mmol/L Carbon Dioxide (22-30) mmol/L Glucose (74-99) mg/dL POC Glucose (mg/dL) 177 H 169 H 177 H (70-110) mg/dL Hemoglobin A1c (<=6.0) % Calcium (8.4-10.2) mg/dL Total Bilirubin (0.2-1.3) mg/dL Triglycerides (0.00-149.00) mg/dL Cholesterol (0.00-200.00) mg/dL VLDL Cholesterol, Calc (5.00-40.00) mg/dL HDL Cholesterol (40.00-60.00) mg/dL 08/14/23 08/14/23 08/14/23 Range/Units 03:03 04:13 05:01 RBC (4.30-5.90) m/uL Sodium 133 L (137-145) mmol/L Carbon Dioxide 19 L (22-30) mmol/L Glucose 180 H (74-99) mg/dL POC Glucose (mg/dL) 164 H 211 H (70-110) mg/dL Hemoglobin A1c (<=6.0) % Calcium 8.3 L (8.4-10.2) mg/dL Total Bilirubin 1.4 H (0.2-1.3) mg/dL Triglycerides (0.00-149.00) mg/dL Cholesterol (0.00-200.00) mg/dL VLDL Cholesterol, Calc (5.00-40.00) mg/dL HDL Cholesterol (40.00-60.00) mg/dL 08/14/23 08/14/23 08/14/23 Range/Units 06:05 07:04 07:21 RBC 4.18 L (4.30-5.90) m/uL Sodium (137-145) mmol/L Carbon Dioxide (22-30) mmol/L Glucose (74-99) mg/dL POC Glucose (mg/dL) 224 H 187 H (70-110) mg/dL Hemoglobin A1c (<=6.0) % Calcium (8.4-10.2) mg/dL Total Bilirubin (0.2-1.3) mg/dL Triglycerides (0.00-149.00) mg/dL Cholesterol (0.00-200.00) mg/dL VLDL Cholesterol, Calc (5.00-40.00) mg/dL HDL Cholesterol (40.00-60.00) mg/dL 08/14/23 08/14/23 08/14/23 Range/Units 07:21 08:00 08:58 RBC (4.30-5.90) m/uL Sodium 135 L (137-145) mmol/L Carbon Dioxide 21 L (22-30) mmol/L Glucose 190 H (74-99) mg/dL POC Glucose (mg/dL) 205 H 205 H (70-110) mg/dL Hemoglobin A1c (<=6.0) % Calcium 8.2 L (8.4-10.2) mg/dL Total Bilirubin (0.2-1.3) mg/dL Triglycerides (0.00-149.00) mg/dL Cholesterol (0.00-200.00) mg/dL VLDL Cholesterol, Calc (5.00-40.00) mg/dL HDL Cholesterol (40.00-60.00) mg/dL 08/14/23 Range/Units 10:04 RBC (4.30-5.90) m/uL Sodium (137-145) mmol/L Carbon Dioxide (22-30) mmol/L Glucose (74-99) mg/dL POC Glucose (mg/dL) 212 H (70-110) mg/dL Hemoglobin A1c (<=6.0) % Calcium (8.4-10.2) mg/dL Total Bilirubin (0.2-1.3) mg/dL Triglycerides (0.00-149.00) mg/dL Cholesterol (0.00-200.00) mg/dL VLDL Cholesterol, Calc (5.00-40.00) mg/dL HDL Cholesterol (40.00-60.00) mg/dL
--- NOTE | 2023-08-14 13:36 | P.GSCN ---
History of Present Illness Consult date: 08/14/23 History of present illness: CHIEF COMPLAINT: Abdominal pain HISTORY OF PRESENT ILLNESS: This is a 48-year-old male with a history of pancreatitis. He presents to the hospital with complaints of mid upper abdomen abdominal pain. Patient reports his last episode of pancreatitis was about 5 years ago and related to elevated triglycerides. Patient reports that he had been on medication for his triglycerides but has stopped taking them because of muscle aches and pains. Patient also reports that he drinks alcohol at least 3 days out of the week and usually has 3 drinks. Patient had computed tomography scan of pelvis had shown evidence of acute pancreatitis. He also was febrile on admission. Lipase was elevated at 815. Triglycerides were also elevated. Gloria braga also was in DKA and has just been taken off of insulin drip. Patient does report some improvement in his abdominal pain. He was having dry heaves at home. PAST MEDICAL HISTORY: Diabetes Mellitus, GERD/Reflux, Hyperlipidemia, hyperglycemia, Hypertension, Sleep Apnea/CPAP/BIPAP, PAST SURGICAL HISTORY: See list. Left lung mass removed at [facility] Sep 2016. MEDICATIONS: See list. ALLERGIES: See list. SOCIAL HISTORY: No illicit drug use. REVIEW OF SYSTEMS: CONSTITUTIONAL: Denies fever or chills. HEENT: Denies blurred vision, vision changes, or eye pain. Denies hemoptysis ENDOCRINE: Denies heat or cold intolerance. CARDIOVASCULAR: Denies chest pain or pressure. RESPIRATORY: No shortness of breath. GASTROINTESTINAL: Denies abdominal pain. Denies nausea or vomiting. NEURO: Denies history of seizures. PSYCH: No depression or suicidal ideation HEMATOLOGIC: Denies bleeding disorders. LYMPHATIC: The patient denies any lumps and bumps around the neck. GENITOURINARY: Denies any blood in urine or increased urinary frequency. MUSCULOSKELETAL: Denies myalgias. Denies joint swelling. Denies decreased range of motion beyond patients baseline. SKIN: Denies pruitis. Denies rash. PHYSICAL EXAM: VITAL SIGNS: Reviewed GENERAL: Well-developed in no acute distress. HEENT: No sclera icterus. Extraocular movements grossly intact. Moist buccal mucosa. Head is atraumatic, normocephalic. Hears conversational speech. No nasal drainage. NECK: Supple without lymphadenopathy. CHEST: Non-labored respirations and equal bilateral excursions. CARDIOVASCULAR: Palpable 2+ radial pulses. ABDOMEN: Soft. Nondistended. tenderness with palpation of epigastric area MUSCULOSKELETAL: No clubbing or cyanosis. NEUROLOGIC: No focal or lateralizing signs. Cranial nerves II through XII grossly intact. PSYCH: Appropriate affect. Alert and oriented to person, place and time. SKIN: Well perfused. Good skin turgor. LABORATORY DATA: WBC 12.3 to 9.3 hgb 13.9 plt 182 Sodium 135 potassium 3.8 creatinine is 1.12 Glucose 204 A1c 10.0 Magnesium 1.1 up to 2.0 Total bilirubin 1.5 and 1.2 AST 27 ALT 23 alk phos 69 Triglycerides greater than 4425 Cholesterol 776 LDL 39.9 HDL low at 12 Lipase 815 down to 789 Amylase 151 IMAGING: Computed tomography scan abdomen findings most consistent with acute pancreatitis. Hepatosplenomegaly ASSESSMENT: 1. Acute pancreatitis 2. Hypertriglyceridemia 3. EtOH use 4. DKA 5. Medication noncompliance 6. Hypercholesterolemia PLAN: -Ultrasound of gallbladder ordered to rule out gallstones for possible cause of pancreatitis -Agree with clear liquid diet -Discussed alcohol abstinence -Repeat lipase level in a.m. -Continue IV fluids -Continue supportive care -Medical management of hypertriglyceridemia and hypercholesterolemia Thank you for this consultation Physician Rn Spine note has been reviewed by physician. Signing provider agrees with the documented findings, assessment, and plan of care. Past Medical History Past Medical History: Diabetes Mellitus, GERD/Reflux, Hyperlipidemia, Hypertension, Sleep Apnea/CPAP/BIPAP Additional Past Medical History / Comment(s): Left lung mass removed at [facility] Sep 2016. Seasonal allergies. History of Any Multi-Drug Resistant Organisms: None Reported Past Surgical History: Orthopedic Surgery Additional Past Surgical History / Comment(s): Rt Knee meniscus repair 2003 Past Anesthesia/Blood Transfusion Reactions: No Reported Reaction Past Psychological History: Anxiety, Depression Additional Psychological History / Comment(s): Patient takes prescribed Xanax 1mg PRN if required - states has not used in 6 months. Smoking Status: Current some day smoker Past Alcohol Use History: Occasional Additional Past Alcohol Use History / Comment(s): smoked 20 years 1ppd, states he still smokes occasionally Past Drug Use History: None Reported - Past Family History Mother Family Medical History: Hyperlipidemia, Hypertension Brother(s) Family Medical History: No Reported History Sister(s) Family Medical History: No Reported History Father History Unknown: Yes Medications and Allergies Home Medications Medication Instructions Recorded Confirmed Type Aspirin [Adult Low Dose Aspirin EC] 81 mg PO DAILY #1 02/04/19 08/12/23 Rx metFORMIN HCL [Glucophage] 1,000 mg PO BID #1 02/04/19 08/12/23 Rx Esomeprazole Magnesium [NexIUM 20 mg PO DAILY 08/12/23 08/12/23 History 24Hr] Losartan Potassium [Cozaar] 100 mg PO DAILY 08/12/23 08/12/23 History Allergies Allergy/AdvReac Type Severity Reaction Status Date / Time No Known Allergies Allergy Verified 08/12/23 22:27 Surgical - Exam Vital Signs Temp Pulse Resp BP Pulse Ox 98.7 F 97 20 183/108 95 08/12/23 21:33 08/12/23 21:33 08/12/23 21:33 08/12/23 21:33 08/12/23 21:33 Results - Labs 08/14/23 07:21 08/14/23 11:06 Abnormal Lab Results - Last 24 Hours (Table) 08/13/23 08/13/23 08/13/23 Range/Units 08:08 11:52 14:21 RBC (4.30-5.90) m/uL Sodium 133 L (137-145) mmol/L Carbon Dioxide 17 L (22-30) mmol/L Glucose 206 H (74-99) mg/dL POC Glucose (mg/dL) 255 H (70-110) mg/dL Hemoglobin A1c 10.0 H (<=6.0) % Calcium (8.4-10.2) mg/dL Total Bilirubin (0.2-1.3) mg/dL Triglycerides >4425.00 H (0.00-149.00) mg/dL Cholesterol 776.00 H (0.00-200.00) mg/dL VLDL Cholesterol, Calc >885.00 H (5.00-40.00) mg/dL HDL Cholesterol 12.00 L (40.00-60.00) mg/dL Amylase (30-110) U/L Lipase (23-300) U/L 08/13/23 08/13/23 08/13/23 Range/Units 14:27 15:33 16:54 RBC (4.30-5.90) m/uL Sodium 133 L (137-145) mmol/L Carbon Dioxide 15 L (22-30) mmol/L Glucose 207 H (74-99) mg/dL POC Glucose (mg/dL) 237 H 189 H (70-110) mg/dL Hemoglobin A1c (<=6.0) % Calcium (8.4-10.2) mg/dL Total Bilirubin (0.2-1.3) mg/dL Triglycerides (0.00-149.00) mg/dL Cholesterol (0.00-200.00) mg/dL VLDL Cholesterol, Calc (5.00-40.00) mg/dL HDL Cholesterol (40.00-60.00) mg/dL Amylase (30-110) U/L Lipase (23-300) U/L 08/13/23 08/13/23 08/13/23 Range/Units 18:32 19:35 19:46 RBC (4.30-5.90) m/uL Sodium 134 L (137-145) mmol/L Carbon Dioxide 19 L (22-30) mmol/L Glucose 139 H (74-99) mg/dL POC Glucose (mg/dL) 156 H 180 H (70-110) mg/dL Hemoglobin A1c (<=6.0) % Calcium (8.4-10.2) mg/dL Total Bilirubin (0.2-1.3) mg/dL Triglycerides (0.00-149.00) mg/dL Cholesterol (0.00-200.00) mg/dL VLDL Cholesterol, Calc (5.00-40.00) mg/dL HDL Cholesterol (40.00-60.00) mg/dL Amylase (30-110) U/L Lipase (23-300) U/L 08/13/23 08/13/23 08/13/23 Range/Units 20:38 21:37 22:45 RBC (4.30-5.90) m/uL Sodium (137-145) mmol/L Carbon Dioxide (22-30) mmol/L Glucose (74-99) mg/dL POC Glucose (mg/dL) 148 H 156 H 183 H (70-110) mg/dL Hemoglobin A1c (<=6.0) % Calcium (8.4-10.2) mg/dL Total Bilirubin (0.2-1.3) mg/dL Triglycerides (0.00-149.00) mg/dL Cholesterol (0.00-200.00) mg/dL VLDL Cholesterol, Calc (5.00-40.00) mg/dL HDL Cholesterol (40.00-60.00) mg/dL Amylase (30-110) U/L Lipase (23-300) U/L 08/13/23 08/14/23 08/14/23 Range/Units 23:59 01:01 02:03 RBC (4.30-5.90) m/uL Sodium (137-145) mmol/L Carbon Dioxide (22-30) mmol/L Glucose (74-99) mg/dL POC Glucose (mg/dL) 177 H 169 H 177 H (70-110) mg/dL Hemoglobin A1c (<=6.0) % Calcium (8.4-10.2) mg/dL Total Bilirubin (0.2-1.3) mg/dL Triglycerides (0.00-149.00) mg/dL Cholesterol (0.00-200.00) mg/dL VLDL Cholesterol, Calc (5.00-40.00) mg/dL HDL Cholesterol (40.00-60.00) mg/dL Amylase (30-110) U/L Lipase (23-300) U/L 08/14/23 08/14/23 08/14/23 Range/Units 03:03 04:13 05:01 RBC (4.30-5.90) m/uL Sodium 133 L (137-145) mmol/L Carbon Dioxide 19 L (22-30) mmol/L Glucose 180 H (74-99) mg/dL POC Glucose (mg/dL) 164 H 211 H (70-110) mg/dL Hemoglobin A1c (<=6.0) % Calcium 8.3 L (8.4-10.2) mg/dL Total Bilirubin 1.4 H (0.2-1.3) mg/dL Triglycerides (0.00-149.00) mg/dL Cholesterol (0.00-200.00) mg/dL VLDL Cholesterol, Calc (5.00-40.00) mg/dL HDL Cholesterol (40.00-60.00) mg/dL Amylase (30-110) U/L Lipase (23-300) U/L 08/14/23 08/14/23 08/14/23 Range/Units 06:05 07:04 07:21 RBC 4.18 L (4.30-5.90) m/uL Sodium (137-145) mmol/L Carbon Dioxide (22-30) mmol/L Glucose (74-99) mg/dL POC Glucose (mg/dL) 224 H 187 H (70-110) mg/dL Hemoglobin A1c (<=6.0) % Calcium (8.4-10.2) mg/dL Total Bilirubin (0.2-1.3) mg/dL Triglycerides (0.00-149.00) mg/dL Cholesterol (0.00-200.00) mg/dL VLDL Cholesterol, Calc (5.00-40.00) mg/dL HDL Cholesterol (40.00-60.00) mg/dL Amylase (30-110) U/L Lipase (23-300) U/L 08/14/23 08/14/23 08/14/23 Range/Units 07:21 08:00 08:58 RBC (4.30-5.90) m/uL Sodium 135 L (137-145) mmol/L Carbon Dioxide 21 L (22-30) mmol/L Glucose 190 H (74-99) mg/dL POC Glucose (mg/dL) 205 H 205 H (70-110) mg/dL Hemoglobin A1c (<=6.0) % Calcium 8.2 L (8.4-10.2) mg/dL Total Bilirubin (0.2-1.3) mg/dL Triglycerides (0.00-149.00) mg/dL Cholesterol (0.00-200.00) mg/dL VLDL Cholesterol, Calc (5.00-40.00) mg/dL HDL Cholesterol (40.00-60.00) mg/dL Amylase (30-110) U/L Lipase (23-300) U/L 08/14/23 08/14/23 08/14/23 Range/Units 10:04 11:06 11:09 RBC (4.30-5.90) m/uL Sodium 135 L (137-145) mmol/L Carbon Dioxide 20 L (22-30) mmol/L Glucose 204 H (74-99) mg/dL POC Glucose (mg/dL) 212 H 213 H (70-110) mg/dL Hemoglobin A1c (<=6.0) % Calcium 8.1 L (8.4-10.2) mg/dL Total Bilirubin (0.2-1.3) mg/dL Triglycerides (0.00-149.00) mg/dL Cholesterol (0.00-200.00) mg/dL VLDL Cholesterol, Calc (5.00-40.00) mg/dL HDL Cholesterol (40.00-60.00) mg/dL Amylase 151 H (30-110) U/L Lipase 789 H (23-300) U/L 08/14/23 Range/Units 12:48 RBC (4.30-5.90) m/uL Sodium (137-145) mmol/L Carbon Dioxide (22-30) mmol/L Glucose (74-99) mg/dL POC Glucose (mg/dL) 218 H (70-110) mg/dL Hemoglobin A1c (<=6.0) % Calcium (8.4-10.2) mg/dL Total Bilirubin (0.2-1.3) mg/dL Triglycerides (0.00-149.00) mg/dL Cholesterol (0.00-200.00) mg/dL VLDL Cholesterol, Calc (5.00-40.00) mg/dL HDL Cholesterol (40.00-60.00) mg/dL Amylase (30-110) U/L Lipase (23-300) U/L Diabetes panel 08/13/23 08/13/23 08/13/23 Range/Units 08:08 11:52 14:27 Sodium 133 L 133 L (137-145) mmol/L Potassium 4.0 4.0 (3.5-5.1) mmol/L Chloride 100 102 (98-107) mmol/L Carbon Dioxide 17 L 15 L (22-30) mmol/L BUN 10 9 (9-20) mg/dL Creatinine 0.79 0.82 (0.66-1.25) mg/dL Glucose 206 H 207 H (74-99) mg/dL Hemoglobin A1c 10.0 H (<=6.0) % Calcium 8.5 (8.4-10.2) mg/dL AST (17-59) U/L ALT (4-49) U/L Alkaline Phosphatase (38-126) U/L Total Protein (6.3-8.2) g/dL Albumin (3.5-5.0) g/dL Triglycerides >4425.00 H (0.00-149.00) mg/dL HDL Cholesterol 12.00 L (40.00-60.00) mg/dL 08/13/23 08/14/23 08/14/23 Range/Units 19:46 04:13 07:21 Sodium 134 L 133 L 135 L (137-145) mmol/L Potassium 3.9 3.7 3.8 (3.5-5.1) mmol/L Chloride 102 103 102 (98-107) mmol/L Carbon Dioxide 19 L 19 L 21 L (22-30) mmol/L BUN 10 11 12 (9-20) mg/dL Creatinine 0.93 1.12 1.11 (0.66-1.25) mg/dL Glucose 139 H 180 H 190 H (74-99) mg/dL Hemoglobin A1c (<=6.0) % Calcium 8.7 8.3 L 8.2 L (8.4-10.2) mg/dL AST 28 27 (17-59) U/L ALT 25 23 (4-49) U/L Alkaline Phosphatase 67 69 (38-126) U/L Total Protein 6.5 6.5 (6.3-8.2) g/dL Albumin 3.6 3.5 (3.5-5.0) g/dL Triglycerides (0.00-149.00) mg/dL HDL Cholesterol (40.00-60.00) mg/dL 08/14/23 Range/Units 11:06 Sodium 135 L (137-145) mmol/L Potassium 3.8 (3.5-5.1) mmol/L Chloride 104 (98-107) mmol/L Carbon Dioxide 20 L (22-30) mmol/L BUN 12 (9-20) mg/dL Creatinine 1.12 (0.66-1.25) mg/dL Glucose 204 H (74-99) mg/dL Hemoglobin A1c (<=6.0) % Calcium 8.1 L (8.4-10.2) mg/dL AST (17-59) U/L ALT (4-49) U/L Alkaline Phosphatase (38-126) U/L Total Protein (6.3-8.2) g/dL Albumin (3.5-5.0) g/dL Triglycerides (0.00-149.00) mg/dL HDL Cholesterol (40.00-60.00) mg/dL Calcium panel 08/13/23 08/13/23 08/14/23 Range/Units 14:27 19:46 04:13 Calcium 8.5 8.7 8.3 L (8.4-10.2) mg/dL Albumin 3.6 (3.5-5.0) g/dL 08/14/23 08/14/23 Range/Units 07:21 11:06 Calcium 8.2 L 8.1 L (8.4-10.2) mg/dL Albumin 3.5 (3.5-5.0) g/dL Pituitary panel 08/13/23 08/13/23 08/13/23 Range/Units 08:08 14:27 19:46 Sodium 133 L 133 L 134 L (137-145) mmol/L Potassium 4.0 4.0 3.9 (3.5-5.1) mmol/L Chloride 100 102 102 (98-107) mmol/L Carbon Dioxide 17 L 15 L 19 L (22-30) mmol/L BUN 10 9 10 (9-20) mg/dL Creatinine 0.79 0.82 0.93 (0.66-1.25) mg/dL Glucose 206 H 207 H 139 H (74-99) mg/dL Calcium 8.5 8.7 (8.4-10.2) mg/dL 08/14/23 08/14/23 08/14/23 Range/Units 04:13 07:21 11:06 Sodium 133 L 135 L 135 L (137-145) mmol/L Potassium 3.7 3.8 3.8 (3.5-5.1) mmol/L Chloride 103 102 104 (98-107) mmol/L Carbon Dioxide 19 L 21 L 20 L (22-30) mmol/L BUN 11 12 12 (9-20) mg/dL Creatinine 1.12 1.11 1.12 (0.66-1.25) mg/dL Glucose 180 H 190 H 204 H (74-99) mg/dL Calcium 8.3 L 8.2 L 8.1 L (8.4-10.2) mg/dL Adrenal panel 08/13/23 08/13/23 08/13/23 Range/Units 08:08 14:27 19:46 Sodium 133 L 133 L 134 L (137-145) mmol/L Potassium 4.0 4.0 3.9 (3.5-5.1) mmol/L Chloride 100 102 102 (98-107) mmol/L Carbon Dioxide 17 L 15 L 19 L (22-30) mmol/L BUN 10 9 10 (9-20) mg/dL Creatinine 0.79 0.82 0.93 (0.66-1.25) mg/dL Glucose 206 H 207 H 139 H (74-99) mg/dL Calcium 8.5 8.7 (8.4-10.2) mg/dL Total Bilirubin (0.2-1.3) mg/dL AST (17-59) U/L ALT (4-49) U/L Alkaline Phosphatase (38-126) U/L Total Protein (6.3-8.2) g/dL Albumin (3.5-5.0) g/dL 08/14/23 08/14/23 08/14/23 Range/Units 04:13 07:21 11:06 Sodium 133 L 135 L 135 L (137-145) mmol/L Potassium 3.7 3.8 3.8 (3.5-5.1) mmol/L Chloride 103 102 104 (98-107) mmol/L Carbon Dioxide 19 L 21 L 20 L (22-30) mmol/L BUN 11 12 12 (9-20) mg/dL Creatinine 1.12 1.11 1.12 (0.66-1.25) mg/dL Glucose 180 H 190 H 204 H (74-99) mg/dL Calcium 8.3 L 8.2 L 8.1 L (8.4-10.2) mg/dL Total Bilirubin 1.4 H 1.2 (0.2-1.3) mg/dL AST 28 27 (17-59) U/L ALT 25 23 (4-49) U/L Alkaline Phosphatase 67 69 (38-126) U/L Total Protein 6.5 6.5 (6.3-8.2) g/dL Albumin 3.6 3.5 (3.5-5.0) g/dL
[2023-08-14 15:00] VITALS: BMI 43.7
--- NOTE | 2023-08-14 16:11 | US ---
EXAMINATION TYPE: US gallbladder DATE OF EXAM: 08/14/2023 COMPARISON: 08/13/2023 CLINICAL INDICATION: Male, 48 years old with history of abdominal pain, pancreatitis, R/O gallstones; known pancreatitis, abd pain, 350lbs TECHNIQUE: Multiple sonographic images of the right upper quadrant are obtained. FINDINGS: EXAM MEASUREMENTS: Liver Length: 27.5 cm Gallbladder Wall: 0.2 cm CBD: 0.8 cm Right Kidney: 14.2 x 5.1 x 6.9 cm PRICING INTERN NOTES:large body habitus Pancreas: wnl Liver: grossly enlarged and difficult to penetrate Gallbladder: dependant sludge Evidence for sonographic Salinas's sign: no CBD: wnl Right Kidney: enlarged, otherwise wnl IMPRESSION: 1. No evidence for acute process. 2. Hepatic steatosis. 3. Biliary sludge.
[2023-08-14 16:31] LABS: Glucose,Whole Blood 262 mg/dL (70-110)
[2023-08-14 20:27] LABS: Glucose,Whole Blood 183 mg/dL (70-110)
[2023-08-15] MEDS: PIPERACILLIN-TAZOBACTAM 3.375 GM in SODIUM CHLORIDE 0.9% 100 ML IVPB SCH ×4 (00:11→23:32)
[2023-08-15] MEDS: D5-0.45% NACL WITH KCL 20MEQ/L 1,000 ML IV SCH ×3 (03:06→17:24)
[2023-08-15] MEDS: SODIUM CHLORIDE 0.9% 1,000 ML IV SCH ×6 (03:06→23:32)
[2023-08-15 05:47] LABS: Glucose,Whole Blood 224 mg/dL (70-110)
[2023-08-15] MEDS: INSULIN DETEMIR (LEVEMIR) 100 UNIT/ML SYR SQ SCH ×2 (06:18→21:06)
[2023-08-15] MEDS: PANTOPRAZOLE 40 MG TABLET PO SCH (06:18)
[2023-08-15] MEDS: INSULIN ASPART (NovoLOG) 100 UNIT/ML VIAL SQ SCH ×4 (06:18→21:06)
[2023-08-15 07:41] LABS: Basophils % (A) 0 %; Eosinophils # (A) 0.3 k/uL (0-0.7); Eosinophils % (A) 5 %; HGB 13.1 gm/dL (13.0-17.5); Lymphocytes # (A) 1.1 k/uL (1.0-4.8); Lymphocytes % (A) 18 %; MCH 32.9 pg (25.0-35.0); MCHC 33.6 g/dL (31.0-37.0); Mean Platelet Volume 8.7; Monocytes # (A) 0.3 k/uL (0-1.0); Monocytes % (A) 5 %; Neutrophils # (A) 4.4 k/uL (1.3-7.7); Neutrophils % (A) 70 %; Platelet Count 156 k/uL (150-450); RBC 3.98 m/uL (4.30-5.90); RDW 13.8 % (11.5-15.5); WBC 6.2 k/uL (3.8-10.6)
[2023-08-15 07:54] LABS: ALT 23 U/L (4-49); AST 24 U/L (17-59); African American GFR (CKD) 83 (>60 ml/min/1.73 sqM); Albumin 3.3 g/dL (3.5-5.0); Alkaline Phosphatase 71 U/L (38-126); Amylase 88 U/L (30-110); Anion Gap 12 mmol/L; Blood Urea Nitrogen 13 mg/dL (9-20); Calcium 8.4 mg/dL (8.4-10.2); Carbon Dioxide 20 mmol/L (22-30); Chloride 102 mmol/L (98-107); Glucose 236 mg/dL (74-99); Lipase 620 U/L (23-300); Non-African American GFR(CKD) 72 (>60 ml/min/1.73 sqM); Sodium 134 mmol/L (137-145); Total Bilirubin 1.1 mg/dL (0.2-1.3); Total Protein 6.3 g/dL (6.3-8.2)
[2023-08-15] MEDS: ACETAMINOPHEN TAB 500 MG TAB PO PRN (09:34)
[2023-08-15] MEDS: ASPIRIN 81 MG PO SCH (09:34)
[2023-08-15] MEDS: LOSARTAN 50 MG TAB PO SCH (09:35)
[2023-08-15] MEDS: ATORVASTATIN 80 MG TAB PO SCH (09:35)
[2023-08-15] MEDS: EZETIMIBE 10 MG TAB PO SCH (09:35)
[2023-08-15] MEDS: THIAMINE 100 MG TAB PO SCH (09:35)
[2023-08-15 11:21] LABS: Glucose,Whole Blood 263 mg/dL (70-110)
[2023-08-15 11:48] LABS: Chol/HDL Ratio 18.29 Ratio
--- NOTE | 2023-08-15 12:29 | P.PN ---
Subjective Progress Note Date: 08/15/23 CHIEF COMPLAINT: Pancreatitis HISTORY OF PRESENT ILLNESS: Patient reports he's had decrease in abdominal pain. Occasional nausea. No vomiting. Lipase has come down from 789-620. LFTs remain normal. Gallbladder ultrasound shows no evidence for acute process. Hepatic steatosis and biliary sludge. Afebrile. WBC 6.2 Hgb 13.1 and platelets 156 sodium 134 potassium 4.0 creatinine 1.20 glucose 236 PHYSICAL EXAM: VITAL SIGNS: Reviewed GENERAL: Well-developed in no acute distress. HEENT: No sclera icterus. Extraocular movements grossly intact. Moist buccal mucosa. Head is atraumatic, normocephalic. Hears conversational speech. No nasal drainage. NECK: Supple without lymphadenopathy. CHEST: Non-labored respirations and equal bilateral excursions. CARDIOVASCULAR: Palpable 2+ radial pulses. ABDOMEN: Soft. Nondistended. Mild epigastric tenderness MUSCULOSKELETAL: No clubbing or cyanosis. NEUROLOGIC: No focal or lateralizing signs. Cranial nerves II through XII grossly intact. PSYCH: Appropriate affect. Alert and oriented to person, place and time. SKIN: Well perfused. Good skin turgor. ASSESSMENT: 1. Acute pancreatitis 2. Hypertriglyceridemia 3. Biliary sludge noted on ultrasound 4. EtOH use 5. DKA 6. Medication noncompliance 7. Hypercholesterolemia PLAN: -Advance diet to full liquids -Continue IV fluids -Continue antibiotics -Continue pain meds as needed -Repeat lipase in a.m. -Continue medical management for the hypertrichosis see me and hypercholester olemia -Recommend tight blood sugar control -Discussed alcohol abstinence Physician Director Erp note has been reviewed by physician. Signing provider agrees with the documented findings, assessment, and plan of care. Objective - Vital Signs Vital signs: Vital Signs Temp 99.2 F 08/15/23 09:38 Pulse 87 08/15/23 09:38 Resp 16 08/15/23 09:38 BP 134/71 08/15/23 09:38 Pulse Ox 97 08/15/23 09:38 FiO2 Intake & Output 08/14/23 08/15/23 08/15/23 18:59 06:59 18:59 Intake Total 303.931 10 425 Output Total 400 Balance 303.931 -390 425 Weight 158.757 kg Intake: IV 10 10 Invasive Line 4 10 10 Intake, IV Titration 57.931 Amount Insulin Regular 100 unit 57.931 In Sodium Chloride 0.9% 100 ml @ 0.1 UNITS/KG/HR 16.034 mls/hr IV .Q6H18M [facility] Rx#:[id number] Oral 236 425 Output: Urine 400 Other: Voiding Method Toilet Toilet # Voids 1 - Labs CBC & Chem 7: 08/15/23 07:12 08/15/23 07:12 Labs: Abnormal Lab Results - Last 24 Hours (Table) 08/14/23 08/14/23 08/14/23 Range/Units 11:06 11:09 12:48 RBC (4.30-5.90) m/uL Sodium 135 L (137-145) mmol/L Carbon Dioxide 20 L (22-30) mmol/L Glucose 204 H (74-99) mg/dL POC Glucose (mg/dL) 213 H 218 H (70-110) mg/dL Calcium 8.1 L (8.4-10.2) mg/dL Albumin (3.5-5.0) g/dL Amylase 151 H (30-110) U/L Lipase 789 H (23-300) U/L 08/14/23 08/14/23 08/15/23 Range/Units 16:29 20:26 05:46 RBC (4.30-5.90) m/uL Sodium (137-145) mmol/L Carbon Dioxide (22-30) mmol/L Glucose (74-99) mg/dL POC Glucose (mg/dL) 262 H 183 H 224 H (70-110) mg/dL Calcium (8.4-10.2) mg/dL Albumin (3.5-5.0) g/dL Amylase (30-110) U/L Lipase (23-300) U/L 08/15/23 08/15/23 Range/Units 07:12 07:12 RBC 3.98 L (4.30-5.90) m/uL Sodium 134 L (137-145) mmol/L Carbon Dioxide 20 L (22-30) mmol/L Glucose 236 H (74-99) mg/dL POC Glucose (mg/dL) (70-110) mg/dL Calcium (8.4-10.2) mg/dL Albumin 3.3 L (3.5-5.0) g/dL Amylase (30-110) U/L Lipase 620 H (23-300) U/L
[2023-08-15] MEDS: FENOFIBRATE 160 MG TAB PO SCH (14:12)
[2023-08-15 16:48] LABS: Glucose,Whole Blood 253 mg/dL (70-110)
[2023-08-15 19:51] LABS: Glucose,Whole Blood 259 mg/dL (70-110)
[2023-08-16 06:27] LABS: Glucose,Whole Blood 217 mg/dL (70-110)
[2023-08-16] MEDS: SODIUM CHLORIDE 0.9% 1,000 ML IV SCH ×2 (06:28→15:21)
[2023-08-16] MEDS: INSULIN ASPART (NovoLOG) 100 UNIT/ML VIAL SQ SCH ×4 (06:29→21:40)
[2023-08-16] MEDS: PANTOPRAZOLE 40 MG TABLET PO SCH (06:29)
[2023-08-16] MEDS: LOSARTAN 50 MG TAB PO SCH (09:00)
[2023-08-16] MEDS: THIAMINE 100 MG TAB PO SCH (09:00)
[2023-08-16] MEDS: INSULIN DETEMIR (LEVEMIR) 100 UNIT/ML SYR SQ SCH ×2 (09:00→21:40)
[2023-08-16] MEDS: ASPIRIN 81 MG PO SCH (09:00)
[2023-08-16] MEDS: PIPERACILLIN-TAZOBACTAM 3.375 GM in SODIUM CHLORIDE 0.9% 100 ML IVPB SCH ×2 (09:00→15:18)
[2023-08-16 09:01] LABS: Basophils % (A) 0 %; Eosinophils # (A) 0.3 k/uL (0-0.7); Eosinophils % (A) 5 %; HCT 36.5 % (39.0-53.0); HGB 12.4 gm/dL (13.0-17.5); Lymphocytes # (A) 1.3 k/uL (1.0-4.8); Lymphocytes % (A) 24 %; MCH 33.3 pg (25.0-35.0); MCHC 33.9 g/dL (31.0-37.0); MCV 98.4 fL (80.0-100.0); Mean Platelet Volume 8.5; Monocytes # (A) 0.4 k/uL (0-1.0); Monocytes % (A) 7 %; Neutrophils # (A) 3.4 k/uL (1.3-7.7); Neutrophils % (A) 61 %; Platelet Count 193 k/uL (150-450); RBC 3.71 m/uL (4.30-5.90); RDW 13.5 % (11.5-15.5); WBC 5.6 k/uL (3.8-10.6)
[2023-08-16] MEDS: ATORVASTATIN 80 MG TAB PO SCH (09:01)
[2023-08-16] MEDS: EZETIMIBE 10 MG TAB PO SCH (09:01)
[2023-08-16] MEDS: FENOFIBRATE 160 MG TAB PO SCH (09:01)
[2023-08-16 09:31] LABS: African American GFR (CKD) >90 (>60 ml/min/1.73 sqM); Anion Gap 15 mmol/L; Blood Urea Nitrogen 11 mg/dL (9-20); Calcium 8.9 mg/dL (8.4-10.2); Carbon Dioxide 18 mmol/L (22-30); Chloride 102 mmol/L (98-107); Glucose 210 mg/dL (74-99); Lipase 910 U/L (23-300); Non-African American GFR(CKD) 87 (>60 ml/min/1.73 sqM); Potassium 4.3 mmol/L (3.5-5.1); Sodium 135 mmol/L (137-145)
--- NOTE | 2023-08-16 10:29 | P.PN ---
Subjective Progress Note Date: 08/16/22 (Surgery) ASSESSMENT: 1. Acute pancreatitis 2. Hypertriglyceridemia 3. Biliary sludge noted on ultrasound 4. EtOH use 5. DKA 6. Medication noncompliance 7. Hypercholesterolemia PLAN: -Advance diet as tolerated, low-fat -Continue IV fluids -Continue pain meds as needed -Continue medical management for the hypertrichosis see me and hypercholesterolemia -Recommend tight blood sugar control -Patient feels much better with pain being minimal today. Plan is to perform elective cholecystectomy. Objective - Vital Signs Vital signs: Vital Signs Temp 97.7 F 08/16/23 04:00 Pulse 77 08/16/23 04:00 Resp 18 08/16/23 04:00 BP 122/75 08/16/23 04:00 Pulse Ox 99 08/16/23 04:00 FiO2 Intake & Output 08/15/23 08/16/23 08/16/23 18:59 06:59 18:59 Intake Total 1425 240 Balance 1425 240 Intake: Oral 1425 240 Other: Voiding Method Toilet Toilet # Voids 1 - Labs CBC & Chem 7: 08/16/23 07:52 08/16/23 07:52 Labs: Abnormal Lab Results - Last 24 Hours (Table) 08/15/23 08/15/23 08/15/23 Range/Units 07:12 07:12 11:19 RBC (4.30-5.90) m/uL Hgb (13.0-17.5) gm/dL Hct (39.0-53.0) % Sodium 134 L (137-145) mmol/L Carbon Dioxide 20 L (22-30) mmol/L Glucose 236 H (74-99) mg/dL POC Glucose (mg/dL) 263 H (70-110) mg/dL Hemoglobin A1c 10.6 H (<=6.0) % Albumin 3.3 L (3.5-5.0) g/dL Triglycerides 1202.00 H (0.00-149.00) mg/dL Cholesterol 406.00 H (0.00-200.00) mg/dL VLDL Cholesterol, Calc 240.40 H (5.00-40.00) mg/dL HDL Cholesterol 22.20 L (40.00-60.00) mg/dL Lipase 620 H (23-300) U/L 08/15/23 08/15/2324 Range/Units 16:42 19:50 06:26 RBC (4.30-5.90) m/uL Hgb (13.0-17.5) gm/dL Hct (39.0-53.0) % Sodium (137-145) mmol/L Carbon Dioxide (22-30) mmol/L Glucose (74-99) mg/dL POC Glucose (mg/dL) 253 H 259 H 217 H (70-110) mg/dL Hemoglobin A1c (<=6.0) % Albumin (3.5-5.0) g/dL Triglycerides (0.00-149.00) mg/dL Cholesterol (0.00-200.00) mg/dL VLDL Cholesterol, Calc (5.00-40.00) mg/dL HDL Cholesterol (40.00-60.00) mg/dL Lipase (23-300) U/L 08/16/23 08/16/23 Range/Units 07:52 07:52 RBC 3.71 L (4.30-5.90) m/uL Hgb 12.4 L (13.0-17.5) gm/dL Hct 36.5 L (39.0-53.0) % Sodium 135 L (137-145) mmol/L Carbon Dioxide 18 L (22-30) mmol/L Glucose 210 H (74-99) mg/dL POC Glucose (mg/dL) (70-110) mg/dL Hemoglobin A1c (<=6.0) % Albumin (3.5-5.0) g/dL Triglycerides (0.00-149.00) mg/dL Cholesterol (0.00-200.00) mg/dL VLDL Cholesterol, Calc (5.00-40.00) mg/dL HDL Cholesterol (40.00-60.00) mg/dL Lipase 910 H (23-300) U/L Microbiology - Last 24 Hours (Table) 08/13/23 22:46 Blood Culture - Preliminary Blood 08/13/23 22:15 Blood Culture - Preliminary Blood
[2023-08-16 11:32] LABS: Glucose,Whole Blood 228 mg/dL (70-110)
[2023-08-16 13:55] LABS: Chol/HDL Ratio 17.85 Ratio
--- NOTE | 2023-08-16 15:48 | P.PN ---
Subjective Progress Note Date: 08/15/23 48-year-old gentleman with past medical history significant for tendinitis, diabetes mellitus brought to the ER because of abdominal pain. Patient stated he was all right this morning when he started noticing abdominal pain that started in the epigastric area. Pain was intermittent, very severe, radiating to the back. There was complaining of nausea and vomiting. Patient denies any fever or chills. Patient history of prior pancreatitis and this pain was at similar to it. There was no complain of any altered bowel movements. There was no complain of fever or chills. There was no complain of orthopnea or PND. denied any chest pain. Because of this epigastric pain, patient came to the ER Initial lab work done in the ER showed WBC 12.3, hemoglobin 14.3, platelet count 33, sodium 1:30, potassium 4.2, BUN 12, creatinine 0.91, magnesium 1.1 lipase 815 EKG done in the ER showed heart rate of [address] segment elevation or depression seen, no T-wave inversions seen. Chest x-ray done in the ER showed no acute cardiopulmonary process Patient admitted to internal medicine service -- Patient is seen and evaluated in room at bedside; reports improvement in symptoms; blood work reviewed with patient; lipid profile continues to improve; patient remains on Lipitor, Crestor and TriCor -- Patient has been evaluated by general surgery and is started on regular diet -- Blood sugars remain markedly elevated in 200; we will increase Lantus up to 14 units twice a day from current 10 units twice a day -- Plan for discharge in next 24 hours if remains stable Objective - Vital Signs Vital signs: Vital Signs Temp 99.2 F 08/15/23 09:38 Pulse 87 08/15/23 09:38 Resp 16 08/15/23 09:38 BP 134/71 08/15/23 09:38 Pulse Ox 97 08/15/23 09:38 FiO2 Intake & Output 08/14/23 08/15/23 08/15/23 18:59 06:59 18:59 Intake Total 303.931 10 425 Output Total 400 Balance 303.931 -390 425 Weight 158.757 kg Intake: IV 10 10 Invasive Line 4 10 10 Intake, IV Titration 57.931 Amount Insulin Regular 100 unit 57.931 In Sodium Chloride 0.9% 100 ml @ 0.1 UNITS/KG/HR 16.034 mls/hr IV .Q6H18M [facility] Rx#:[id number] Oral 236 425 Output: Urine 400 Other: Voiding Method Toilet Toilet Toilet # Voids 1 - Exam GENERAL: The patient is alert and oriented x3, not in any acute distress. Well developed, well nourished. HEENT: Pupils are round and equally reacting to light. EOMI. No scleral icterus. No conjunctival pallor. Normocephalic, atraumatic. No pharyngeal erythema. No thyromegaly. CARDIOVASCULAR: S1 and S2 present. No murmurs, rubs, or gallops. PULMONARY: Chest is clear to auscultation, no wheezing or crackles. ABDOMEN: Soft, tenderness in right upper quadrant, normoactive bowel sounds. No palpable organomegaly. MUSCULOSKELETAL: No joint swelling or deformity. EXTREMITIES: No cyanosis, clubbing, or pedal edema. NEUROLOGICAL: Gross neurological examination did not reveal any focal deficits. SKIN: No rashes. - Labs CBC & Chem 7: 08/16/23 07:52 08/16/23 07:52 Labs: Abnormal Lab Results - Last 24 Hours (Table) 08/14/23 08/14/23 08/14/23 Range/Units 12:48 16:29 20:26 RBC (4.30-5.90) m/uL Sodium (137-145) mmol/L Carbon Dioxide (22-30) mmol/L Glucose (74-99) mg/dL POC Glucose (mg/dL) 218 H 262 H 183 H (70-110) mg/dL Hemoglobin A1c (<=6.0) % Albumin (3.5-5.0) g/dL Triglycerides (0.00-149.00) mg/dL Cholesterol (0.00-200.00) mg/dL VLDL Cholesterol, Calc (5.00-40.00) mg/dL HDL Cholesterol (40.00-60.00) mg/dL Lipase (23-300) U/L 08/15/23 08/15/23 08/15/23 Range/Units 05:46 07:12 07:12 RBC 3.98 L (4.30-5.90) m/uL Sodium (137-145) mmol/L Carbon Dioxide (22-30) mmol/L Glucose (74-99) mg/dL POC Glucose (mg/dL) 224 H (70-110) mg/dL Hemoglobin A1c 10.6 H (<=6.0) % Albumin (3.5-5.0) g/dL Triglycerides (0.00-149.00) mg/dL Cholesterol (0.00-200.00) mg/dL VLDL Cholesterol, Calc (5.00-40.00) mg/dL HDL Cholesterol (40.00-60.00) mg/dL Lipase (23-300) U/L 08/15/23 08/15/23 Range/Units 07:12 11:19 RBC (4.30-5.90) m/uL Sodium 134 L (137-145) mmol/L Carbon Dioxide 20 L (22-30) mmol/L Glucose 236 H (74-99) mg/dL POC Glucose (mg/dL) 263 H (70-110) mg/dL Hemoglobin A1c (<=6.0) % Albumin 3.3 L (3.5-5.0) g/dL Triglycerides 1202.00 H (0.00-149.00) mg/dL Cholesterol 406.00 H (0.00-200.00) mg/dL VLDL Cholesterol, Calc 240.40 H (5.00-40.00) mg/dL HDL Cholesterol 22.20 L (40.00-60.00) mg/dL Lipase 620 H (23-300) U/L Assessment and Plan Assessment: DKA Acute pancreatitis Hyponatremia Hypomagnesemia Hyperlipidemia Hypertension Monitor vital signs Monitor CBC Monitor CMP Continue telemetry monitoring Ordered lipid panel Ordered HbA1c levels Continue patient on DKA protocol Continue to monitor serial electrolytes every 4 hourly Continue insulin drip Once blood sugar less than 250, switch to D5 half normal saline Once anion gap closes, we'll start subcu insulin and stop the drip after 30 minutes Resume home meds
--- NOTE | 2023-08-16 15:49 | P.PN ---
Subjective Progress Note Date: 08/16/23 48-year-old gentleman with past medical history significant for tendinitis, diabetes mellitus brought to the ER because of abdominal pain. Patient stated he was all right this morning when he started noticing abdominal pain that started in the epigastric area. Pain was intermittent, very severe, radiating to the back. There was complaining of nausea and vomiting. Patient denies any fever or chills. Patient history of prior pancreatitis and this pain was at similar to it. There was no complain of any altered bowel movements. There was no complain of fever or chills. There was no complain of orthopnea or PND. denied any chest pain. Because of this epigastric pain, patient came to the ER Initial lab work done in the ER showed WBC 12.3, hemoglobin 14.3, platelet count 33, sodium 1:30, potassium 4.2, BUN 12, creatinine 0.91, magnesium 1.1 lipase 815 EKG done in the ER showed heart rate of [address] segment elevation or depression seen, no T-wave inversions seen. Chest x-ray done in the ER showed no acute cardiopulmonary process Patient admitted to internal medicine service 08/16/2023 -- Patient is seen and evaluated in room at bedside; reports improvement in symptoms; blood work reviewed with patient; lipid profile continues to improve; patient remains on Lipitor, Crestor and TriCor Vital signs are reviewed and remained stable Total cholesterol down to 373 from 776 upon admission; triglycerides trending down from greater than 4000 down to 845 -- Patient has been evaluated by general surgery and is started on regular diet -- Blood sugars remain markedly elevated in 200; we will increase Lantus up to 14 units twice a day from current 10 units twice a day -- Plan for discharge in next 24 hours if remains stable Objective - Vital Signs Vital signs: Vital Signs Temp 98.1 F 08/16/23 08:00 Pulse 74 08/16/23 08:00 Resp 18 08/16/23 08:00 BP 154/97 08/16/23 08:00 Pulse Ox 97 08/16/23 08:00 FiO2 Intake & Output 08/15/23 08/16/23 08/16/23 18:59 06:59 18:59 Intake Total 1425 240 Balance 1425 240 Intake: Oral 1425 240 Other: Voiding Method Toilet Toilet # Voids 1 - Exam GENERAL: The patient is alert and oriented x3, not in any acute distress. Well developed, well nourished. HEENT: Pupils are round and equally reacting to light. EOMI. No scleral icterus. No conjunctival pallor. Normocephalic, atraumatic. No pharyngeal erythema. No thyromegaly. CARDIOVASCULAR: S1 and S2 present. No murmurs, rubs, or gallops. PULMONARY: Chest is clear to auscultation, no wheezing or crackles. ABDOMEN: Soft, tenderness in right upper quadrant, normoactive bowel sounds. No palpable organomegaly. MUSCULOSKELETAL: No joint swelling or deformity. EXTREMITIES: No cyanosis, clubbing, or pedal edema. NEUROLOGICAL: Gross neurological examination did not reveal any focal deficits. SKIN: No rashes. - Labs CBC & Chem 7: 08/16/23 07:52 08/16/23 07:52 Labs: Abnormal Lab Results - Last 24 Hours (Table) 08/15/23 08/15/23 08/16/23 Range/Units 16:42 19:50 06:26 RBC (4.30-5.90) m/uL Hgb (13.0-17.5) gm/dL Hct (39.0-53.0) % Sodium (137-145) mmol/L Carbon Dioxide (22-30) mmol/L Glucose (74-99) mg/dL POC Glucose (mg/dL) 253 H 259 H 217 H (70-110) mg/dL Lipase (23-300) U/L 08/16/23 08/16/23 08/16/23 Range/Units 07:52 07:52 11:31 RBC 3.71 L (4.30-5.90) m/uL Hgb 12.4 L (13.0-17.5) gm/dL Hct 36.5 L (39.0-53.0) % Sodium 135 L (137-145) mmol/L Carbon Dioxide 18 L (22-30) mmol/L Glucose 210 H (74-99) mg/dL POC Glucose (mg/dL) 228 H (70-110) mg/dL Lipase 910 H (23-300) U/L Microbiology - Last 24 Hours (Table) 08/13/23 22:46 Blood Culture - Preliminary Blood 01/03/24 22:15 Blood Culture - Preliminary Blood Assessment and Plan Assessment: DKA Acute pancreatitis Hyponatremia Hypomagnesemia Hyperlipidemia Hypertension Monitor vital signs Monitor CBC Monitor CMP Continue telemetry monitoring Ordered lipid panel Ordered HbA1c levels Continue patient on DKA protocol Continue to monitor serial electrolytes every 4 hourly Continue insulin drip Once blood sugar less than 250, switch to D5 half normal saline Once anion gap closes, we'll start subcu insulin and stop the drip after 30 minutes Resume home meds
[2023-08-16 16:09] LABS: Glucose,Whole Blood 189 mg/dL (70-110)
[2023-08-16 21:04] LABS: Glucose,Whole Blood 219 mg/dL (70-110)
[2023-08-17] MEDS: PIPERACILLIN-TAZOBACTAM 3.375 GM in SODIUM CHLORIDE 0.9% 100 ML IVPB SCH ×2 (00:08→07:51)
[2023-08-17] MEDS: SODIUM CHLORIDE 0.9% 1,000 ML IV SCH ×2 (00:11→07:51)
[2023-08-17 04:40] VITALS: RESP 16
[2023-08-17 06:09] LABS: Glucose,Whole Blood 202 mg/dL (70-110)
[2023-08-17] MEDS: INSULIN ASPART (NovoLOG) 100 UNIT/ML VIAL SQ SCH (06:10)
[2023-08-17] MEDS: INSULIN DETEMIR (LEVEMIR) 100 UNIT/ML SYR SQ SCH (06:10)
[2023-08-17] MEDS: PANTOPRAZOLE 40 MG TABLET PO SCH (06:12)
[2023-08-17] MEDS ORDERED: INSULIN ASPART (NovoLOG) 100 UNIT/ML VIAL SQ SCH (07:30)
[2023-08-17] MEDS: LOSARTAN 50 MG TAB PO SCH (08:50)
[2023-08-17] MEDS: ATORVASTATIN 80 MG TAB PO SCH (08:50)
[2023-08-17] MEDS: THIAMINE 100 MG TAB PO SCH (08:50)
[2023-08-17] MEDS: FENOFIBRATE 160 MG TAB PO SCH (08:50)
[2023-08-17] MEDS: EZETIMIBE 10 MG TAB PO SCH (08:50)
[2023-08-17] MEDS: ASPIRIN 81 MG PO SCH (08:50)
[2023-08-17 09:30] LABS: Basophils % (A) 0 %; Eosinophils # (A) 0.2 k/uL (0-0.7); Eosinophils % (A) 4 %; HCT 39.2 % (39.0-53.0); Lymphocytes # (A) 1.4 k/uL (1.0-4.8); Lymphocytes % (A) 26 %; MCH 32.4 pg (25.0-35.0); MCHC 33.2 g/dL (31.0-37.0); MCV 97.7 fL (80.0-100.0); Monocytes # (A) 0.3 k/uL (0-1.0); Monocytes % (A) 6 %; Neutrophils # (A) 3.4 k/uL (1.3-7.7); Neutrophils % (A) 61 %; Platelet Count 235 k/uL (150-450); RBC 4.01 m/uL (4.30-5.90); RDW 13.4 % (11.5-15.5); WBC 5.5 k/uL (3.8-10.6)
[2023-08-17 09:57] LABS: African American GFR (CKD) >90 (>60 ml/min/1.73 sqM); Anion Gap 16 mmol/L; Blood Urea Nitrogen 11 mg/dL (9-20); Calcium 9.6 mg/dL (8.4-10.2); Carbon Dioxide 17 mmol/L (22-30); Chloride 103 mmol/L (98-107); Glucose 221 mg/dL (74-99); Non-African American GFR(CKD) 87 (>60 ml/min/1.73 sqM); Potassium 4.5 mmol/L (3.5-5.1); Sodium 136 mmol/L (137-145)
[2023-08-17 10:12] VITALS: BP 148/80; PULSE 82; TEMP 98.2
--- NOTE | 2023-08-17 10:53 | P.PN ---
Subjective Progress Note Date: 08/17/23 Objective - Vital Signs Vital signs: Vital Signs Temp 98.2 F 08/17/23 07:50 Pulse 82 08/17/23 07:50 Resp 16 08/17/23 07:50 BP 148/80 08/17/23 07:50 Pulse Ox 97 08/17/23 07:50 FiO2 Intake & Output 08/16/23 08/17/23 08/17/23 18:59 06:59 18:59 Intake Total 2120 240 580 Balance 2120 240 580 Intake: Intake, IV Titration 1100 Amount Piperacillin-Tazobactam 3 100 .375 gm In Sodium Chloride 0.9% 100 ml @ 25 mls/hr IVPB Q8HR [facility] Rx# :[id number] Sodium Chloride 0.9% 1, 1000 000 ml @ 125 mls/hr IV . Q8H [facility] Rx#:[id number] Oral 1020 240 580 Other: Voiding Method Toilet # Voids 1 - Labs CBC & Chem 7: 08/17/23 08:41 08/17/23 08:41 Labs: Abnormal Lab Results - Last 24 Hours (Table) 08/16/23 08/16/23 08/16/23 Range/Units 07:52 11:31 16:07 RBC (4.30-5.90) m/uL Sodium 135 L (137-145) mmol/L Carbon Dioxide 18 L (22-30) mmol/L Glucose 210 H (74-99) mg/dL POC Glucose (mg/dL) 228 H 189 H (70-110) mg/dL Triglycerides 845.00 H (0.00-149.00) mg/dL Cholesterol 373.00 H (0.00-200.00) mg/dL VLDL Cholesterol, Calc 169.00 H (5.00-40.00) mg/dL HDL Cholesterol 20.90 L (40.00-60.00) mg/dL Lipase 910 H (23-300) U/L 08/16/23 08/17/23 08/17/23 Range/Units 21:03 06:04 08:41 RBC 4.01 L (4.30-5.90) m/uL Sodium (137-145) mmol/L Carbon Dioxide (22-30) mmol/L Glucose (74-99) mg/dL POC Glucose (mg/dL) 219 H 202 H (70-110) mg/dL Triglycerides (0.00-149.00) mg/dL Cholesterol (0.00-200.00) mg/dL VLDL Cholesterol, Calc (5.00-40.00) mg/dL HDL Cholesterol (40.00-60.00) mg/dL Lipase (23-300) U/L 08/17/23 Range/Units 08:41 RBC (4.30-5.90) m/uL Sodium 136 L (137-145) mmol/L Carbon Dioxide 17 L (22-30) mmol/L Glucose 221 H (74-99) mg/dL POC Glucose (mg/dL) (70-110) mg/dL Triglycerides (0.00-149.00) mg/dL Cholesterol (0.00-200.00) mg/dL VLDL Cholesterol, Calc (5.00-40.00) mg/dL HDL Cholesterol (40.00-60.00) mg/dL Lipase (23-300) U/L Microbiology - Last 24 Hours (Table) 08/13/23 22:46 Blood Culture - Preliminary Blood 08/13/23 22:15 Blood Culture - Preliminary Blood Assessment and Plan Plan: Patient's abdominal pain resolved. The patient feels well. He'll follow-up with Dr. Slade as an outpatient.
[2023-08-17 23:04] LABS: Chol/HDL Ratio 18.56 Ratio
== END 2023-08-17 11:30 | disposition home or self-care (01) | DRG 438 ==
LOC: EC 21:27 → 3SCARD 08-13 02:17
PROVIDERS: ADMIT Hospitalist; ATTEND Hospitalist
DX: K85.10 Biliary acute pancreatitis without necrosis or infection (principal); E11.10 Type 2 diabetes mellitus with ketoacidosis without coma; E87.1 Hypo-osmolality and hyponatremia; K76.0 Fatty (change of) liver, not elsewhere classified; E78.00 Pure hypercholesterolemia, unspecified; E78.1 Pure hyperglyceridemia; F10.90 Alcohol use, unspecified, uncomplicated; E83.42 Hypomagnesemia; T50.906A Underdosing of unspecified drugs, medicaments and biological substances, initial encounter; I10 Essential (primary) hypertension; F32.A Depression, unspecified; F41.9 Anxiety disorder, unspecified; G47.30 Sleep apnea, unspecified; K21.9 Gastro-esophageal reflux disease without esophagitis; J30.2 Other seasonal allergic rhinitis; L68.9 Hypertrichosis, unspecified; Z91.128 Patient's intentional underdosing of medication regimen for other reason; F17.210 Nicotine dependence, cigarettes, uncomplicated; Z71.6 Tobacco abuse counseling; Z79.82 Long term (current) use of aspirin; Z79.84 Long term (current) use of oral hypoglycemic drugs; Z79.899 Other long term (current) drug therapy; Z71.3 Dietary counseling and surveillance
CPT/HCPCS: 36415; 71046; 74150; 76705; 80048; 80051; 80053; 80061; 81001; 82009; 82150; 82565; 82947; 83036; 83605; 83690; 83721; 83735; 84100; 84443; 84484; 84520; 85025; 87040; 93005; 94760; 96361; 96365; 96366; 96367; 96372; 96375; 96376; 99291